=== PATIENT | female | born 1995 | race Caucasian/White ===

== ENCOUNTER 2019-05-31 18:46 | Emergency (ER) | payer MEDICAID, OTHER ==
[2019-05-31] MEDS ORDERED: FLU Vacc QS2019-20(6MOS+)/PF 60 MCG/0.5 ML SYRINGE IM ONE (19:30)
--- NOTE | 2019-05-31 19:47 | EDM.PDOC ---
ED HPI GENERAL MEDICAL PROBLEM - General Chief Complaint: Upper Extremity Injury/Pain Stated Complaint: INJURY TO RIGHT WRIST Time Seen by Provider: 05/31/19 19:40 - History of Present Illness INITIAL COMMENTS - FREE TEXT/NARRATIVE: 23-year-old female presents emergency room with right wrist pain. this is been going on for several years but it's getting worse when she first injured it for 5 years ago she was advised to have surgery but was not able to follow through with that. Now she's having increased pain and it is hard for her to do her job. She works at the [email or web address] and is unable to manipulate handcuffs. Right Wrist Pain Score (Numeric/FACES): 9 - Related Data Allergies Allergy/AdvReac Type Severity Reaction Status Date / Time No Known Allergies Allergy Verified 05/31/19 19:14 Home Meds: Home Meds Albuterol [Proventil HFA] 1 puff INH Q4H PRN 05/31/19 [History] Past Medical History Respiratory History: Reports: Asthma Social & Family History - Family History Family Medical History: Noncontributory - Tobacco Use Smoking Status *Q: Current Every Day Smoker Years of Tobacco use: 7 Packs/Tins Daily: 0.4 - Caffeine Use Caffeine Use: Reports: Coffee, Energy Drinks, Soda - Recreational Drug Use Recreational Drug Use: No Review of Systems - Review of Systems Review Of Systems: See Below Respiratory: Reports: No Symptoms Cardiovascular: Reports: No Symptoms GI/Abdominal: Reports: No Symptoms ED EXAM, GENERAL - Physical Exam Exam: See Below Exam Limited By: No Limitations General Appearance: Alert, No Apparent Distress Respiratory/Chest: No Respiratory Distress, Lungs Clear, Normal Breath Sounds Cardiovascular: Regular Rate, Rhythm, No Edema, No Murmur Extremities: Other (Vascular status of the right hand is normal flexion extension of the elbow is okay the patient has difficulty going to full supination because of discomfort in her wrist pronation is fairly well intact Beaver and extension of the wrist is somewhat limited.) ED TRAUMA EXTREMITY PROCEDURES - Splinting Right Upper Extremity Pre-Procedure NV Status: Normal Post-Procedure NV Status: Normal Splint Material: Fiberglass Splint Design: Volar Applied & Form Fitted By: Provider Provider Post-Splint Application NV Check: NV Status Normal Complications: No Course - Vital Signs Last Recorded V/S: Last Vital Signs Temp 36.7 C 05/31/19 19:11 Pulse 79 05/31/19 19:11 Resp 16 05/31/19 19:11 BP 104/69 05/31/19 19:11 Pulse Ox 97 05/31/19 19:11 - Orders/Labs/Meds Orders: Active Orders 24 hr Category Date Time Status Influenza Vaccine Charge [RC] .DISCHARGE Care 05/31/19 19:18 Active Wrist Comp Min 3V Rt [CR] Stat Exams 05/31/19 19:47 Taken Meds: Medications Discontinued Medications Generic Name Dose Route Start Last Admin Trade Name Harika PRN Reason Stop Dose Admin Influenza Virus Vaccine 1 each 05/31/19 19:18 Pharmacy To Dose - Influenza Vaccine IM 05/31/19 19:19 ONETIME ONE Influenza Virus Vaccine 60 mcg 05/31/19 19:30 05/31/19 20:07 Fluzone Quad [id number] Syringe IM 05/31/19 19:31 60 mcg .ONCE ONE Administration - Re-Assessments/Exams Free Text/Narrative Re-Assessment/Exam: 05/31/19 22:42 Examination her wrist was negative for acute fracture dislocation something about the carpal bones wasn't right had [facility] look at the images and they thought it showed no acute changes. Patient is placed in a cock-up splint and will follow up with orthopedics. Departure - Departure Time of Disposition: 22:44 Disposition: Home, Self-Care 01 Clinical Impression: Right wrist injury - Discharge Information Instructions: Cast or Splint Care, Adult, [id number] Referrals: PCP,None [Primary Care Provider] - Adin Nation MD [Physician] - Forms: ED Department Discharge, ED Return to Work/School Form Additional Instructions: Return to the emergency room with any questions problems or worsening symptoms. Follow-up with Dr. Nation today in one week. Wear the splint at all times. - My Orders Last 24 Hours: My Active Orders 05/31/19 19:18 Influenza Vaccine Charge [RC] .DISCHARGE 05/31/19 19:47 Wrist Comp Min 3V Rt [CR] Stat - Assessment/Plan Last 24 Hours: My Active Orders 05/31/19 19:18 Influenza Vaccine Charge [RC] .DISCHARGE 05/31/19 19:47 Wrist Comp Min 3V Rt [CR] Stat
--- NOTE | 2019-06-01 07:45 | CR ---
Right wrist: Four views of the right wrist were obtained as well as an additional navicular view. Joint spaces are preserved. No fracture, dislocation or other bony abnormality is seen. Impression: 1. No abnormality is appreciated on right wrist exam. Diagnostic code #1 I agree with preliminary report from [facility], finalized on 05/31/19, 11:01 PM Central Time
== END 2019-05-31 22:57 | disposition home or self-care (01) ==
LOC: JD.ED 18:46
DX: S69.91XA Unspecified injury of right wrist, hand and finger(s), initial encounter (principal); J45.909 Unspecified asthma, uncomplicated; F17.210 Nicotine dependence, cigarettes, uncomplicated; Z23 Encounter for immunization; Z79.899 Other long term (current) drug therapy; W00.0XXA Fall on same level due to ice and snow, initial encounter
CPT/HCPCS: 29125; 73110-26-RT; 73110-RT; 90471; 90686; 99283; 99283-25

== ENCOUNTER 2019-08-27 17:00 | Emergency (ER) | payer MEDICAID, OTHER ==
[2019-08-27] MEDS ORDERED: Ondansetron 4 MG/2 ML SDV IVPUSH ONE (17:16)
[2019-08-27] MEDS ORDERED: Sodium Chloride 0.9% 1,000 ML IV ONE (17:16)
[2019-08-27] MEDS ORDERED: Sodium Chloride 0.9% 10 ML Syringe FLUSH PRN (17:16)
[2019-08-27] MEDS ORDERED: Albuterol 0.083% 2.5 MG/3 ML Neb Soln NEB ONE (17:25)
--- NOTE | 2019-08-27 17:30 | EDM.PDOC ---
ED HPI GENERAL MEDICAL PROBLEM - General Chief Complaint: Gastrointestinal Problem Stated Complaint: FLU SX Time Seen by Provider: 08/27/19 17:15 Source of Information: Reports: Patient, RN Notes Reviewed History Limitations: Reports: No Limitations - History of Present Illness INITIAL COMMENTS - FREE TEXT/NARRATIVE: Patient is a 24-year-old female who presents to the ED for evaluation of multiple complaints. The patient states that she developed vomiting and diarrhea at around 4 AM this morning. She states she has had multiple episodes throughout the day, and has counted at least 10 of each. She further states that she feels hot and cold, and has all over body aches. She notes a history of asthma, and states that it feels hard to breathe as well. Although her O2 sats are 100% on room air. 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 Patient did not take any other sort of pain medications or otherwise at home. - Related Data Allergies Allergy/AdvReac Type Severity Reaction Status Date / Time No Known Allergies Allergy Verified 05/31/19 19:14 Home Meds: Home Meds Albuterol [Proventil HFA] 1 puff INH Q4H PRN 05/31/19 [History] Albuterol Sulfate [Albuterol Sulfate Hfa] 8.5 gm IH QID PRN #1 inhaler 08/27/19 [Rx] Ondansetron [Zofran ODT] 4 mg PO Q8H PRN #15 tab.dis 08/27/19 [Rx] Oseltamivir [Tamiflu] 75 mg PO BID #10 cap 08/27/19 [Rx] Past Medical History Respiratory History: Reports: Asthma Social & Family History - Family History Family Medical History: Noncontributory - Caffeine Use Caffeine Use: Reports: Coffee, Energy Drinks, Soda ED ROS GENERAL - Review of Systems Review Of Systems: See Below Constitutional: Reports: Fever, Chills, Malaise (generalzed) Respiratory: Reports: Shortness of Breath, Wheezing. Denies: Cough Cardiovascular: Denies: Chest Pain GI/Abdominal: Reports: Diarrhea, Decreased Appetite, Nausea, Vomiting. Denies: Abdominal Pain Neurological: Denies: Headache ED EXAM, GI/ABD - Physical Exam Exam: See Below Exam Limited By: No Limitations General Appearance: Alert, WD/WN, No Apparent Distress Eyes: Bilateral: Normal Appearance Throat/Mouth: Normal Inspection, Normal Lips, Normal Teeth, Normal Gums, Normal Oropharynx, Normal Voice, No Airway Compromise Head: Atraumatic, Normocephalic Neck: Normal Inspection Respiratory/Chest: No Respiratory Distress, No Accessory Muscle Use, Chest Non- Tender, Wheezing (minimal bilaterally) Cardiovascular: Normal Peripheral Pulses, Regular Rate, Rhythm, No Murmur GI/Abdominal Exam: Normal Bowel Sounds, Soft, Non-Tender, No Distention, No Mass Extremities: Normal Inspection, Normal Capillary Refill Neurological: Alert, Oriented, Normal Cognition, Normal Gait, No Motor/Sensory Deficits Psychiatric: Normal Affect, Normal Mood Skin Exam: Warm, Dry, Intact, Normal Color, No Rash Course - Vital Signs Last Recorded V/S: Last Vital Signs Temp 98.1 F 08/27/19 17:14 Pulse 94 08/27/19 17:14 Resp 16 08/27/19 17:14 BP 124/74 08/27/19 17:14 Pulse Ox 98 08/27/19 17:25 - Orders/Labs/Meds Orders: Active Orders 24 hr Category Date Time Status Peripheral IV Care [RC] . DIRECTED Care 08/27/19 17:16 Ordered RT Aerosol Therapy [RC] ASDIRECTED Care 08/27/19 17:25 Ordered Sodium Chloride 0.9% [Saline Flush] Med 08/27/19 17:16 Ordered 10 ml FLUSH ASDIRECTED PRN Peripheral IV Insertion Adult [OM.PC] Stat Oth 08/27/19 17:16 Ordered Medication Orders Sodium Chloride (Saline Flush) 10 ml FLUSH ASDIRECTED PRN PRN Reason: Keep Vein Open Last Admin: 08/27/19 17:40 Dose: 10 ml Meds: Medications Generic Name Dose Route Start Last Admin Trade Name Freq PRN Reason Stop Dose Admin Sodium Chloride 10 ml 08/27/19 17:16 08/27/19 17:40 Saline Flush FLUSH 10 ml ASDIRECTED PRN Administration Keep Vein Open Discontinued Medications Generic Name Dose Route Start Last Admin Trade Name Freq PRN Reason Stop Dose Admin Albuterol 2.5 mg 08/27/19 17:25 08/27/19 17:47 Proventil Neb Soln NEB 08/27/19 17:26 2.5 mg ONETIME ONE Administration Sodium Chloride 1,000 mls @ 999 mls/hr 08/27/19 17:16 08/27/19 17:40 Normal Saline IV 08/27/19 18:16 999 mls/hr ONETIME ONE Administration Ondansetron HCl 4 mg 08/27/19 17:16 08/27/19 17:40 Zofran IVPUSH 08/27/19 17:17 4 mg ONETIME ONE Administration - Re-Assessments/Exams Free Text/Narrative Re-Assessment/Exam: 08/27/19 17:29 She presents to the ED for evaluation of multiple episodes of diarrhea and vomiting today. I did order IV to be placed with some IV fluids, 4 mg Zofran, influenza swab, and an albuterol nebulizer for management. 08/27/19 18:43 Patient reports symptomatic relief after the fluids and Zofran. Patient's influenza swab is negative at this time, but due to her symptoms, I do believe she clinically has influenza and will treat her as such. She was started on some Tamiflu, she will be given a prescription for an albuterol inhaler and some Zofran with recommendations of taking Imodium [id number] for her diarrhea. Departure - Departure Time of Disposition: 18:44 Disposition: Home, Self-Care 01 Condition: Fair Clinical Impression: Influenza - Discharge Information *PRESCRIPTION DRUG MONITORING PROGRAM REVIEWED*: No *COPY OF PRESCRIPTION DRUG MONITORING REPORT IN PATIENT NAMRATA: No Prescriptions: Albuterol Sulfate [Albuterol Sulfate Hfa] 8.5 gm IH QID PRN #1 inhaler PRN Reason: sob Ondansetron [Zofran ODT] 4 mg PO Q8H PRN #15 tab.dis PRN Reason: Nausea Oseltamivir [Tamiflu] 75 mg PO BID #10 cap Instructions: Influenza, Adult, [id number], Viral Gastroenteritis, Adult, [id number] Referrals: PCP,Not In Area [Primary Care Provider] - Forms: ED Department Discharge, ED Return to Work/School Form Additional Instructions: You have been evaluated in the ED for nausea/vomiting/diarrhea. You were checked for influenza at today's visit, our swab was negative however this is not a perfect test and due to your symptoms I believe that you clinically have influenza. You will be given a prescription for Tamiflu, please take as directed. You have received IV fluid in the ED to help with the dehydration from the vomiting and diarrhea. Over the next 24-48 hours please try to limit diet to clear liquids and advance as tolerate to a bland diet to alleviate symptoms of nausea/vomiting/diarrhea. Please use the Zofran every 8 hours as needed for nausea. Recommend you obtain some [id number] Imodium and take as directed on the back of the bottle for further diarrhea relief. Please try to use as little of this medication as possible. Please return to the ED if your symptoms should change or worsen. Sepsis Event Note - Evaluation Sepsis Screening Result: No Definite Risk - Focused Exam Vital Signs: Vital Signs Temp Pulse Resp BP Pulse Ox Pulse Ox 08/27/19 17:25 98 08/27/19 17:14 98.1 F 94 16 124/74 100 Date Exam was Performed: 08/27/19 Time Exam was Performed: 18:46 - My Orders Last 24 Hours: My Active Orders 08/27/19 17:16 Peripheral IV Care [RC] . DIRECTED Sodium Chloride 0.9% [Saline Flush] 10 ml FLUSH ASDIRECTED PRN Peripheral IV Insertion Adult [OM.PC] Stat 08/27/19 17:25 RT Aerosol Therapy [RC] ASDIRECTED - Assessment/Plan Last 24 Hours: My Active Orders 08/27/19 17:16 Peripheral IV Care [RC] . DIRECTED Sodium Chloride 0.9% [Saline Flush] 10 ml FLUSH ASDIRECTED PRN Peripheral IV Insertion Adult [OM.PC] Stat 08/27/19 17:25 RT Aerosol Therapy [RC] ASDIRECTED
== END 2019-08-27 19:00 | disposition home or self-care (01) ==
LOC: JD.ED 17:00
DX: J11.1 Influenza due to unidentified influenza virus with other respiratory manifestations (principal); J45.909 Unspecified asthma, uncomplicated
CPT/HCPCS: 87804; 94640; 96361; 96374; 99284; J2405; J7030; 99283

== ENCOUNTER 2019-09-01 17:32 | Emergency (ER) | payer MEDICAID ==
[2019-09-01] MEDS ORDERED: Metoclopramide 10 MG/2 ML SDV IM ONE (18:13)
--- NOTE | 2019-09-01 18:27 | EDM.PDOC ---
<DoryCamelia - Last Filed: 09/01/19 18:13> ED HPI GENERAL MEDICAL PROBLEM - General Chief Complaint: General Stated Complaint: FLU Time Seen by Provider: 09/01/19 17:59 Source of Information: Reports: Patient History Limitations: Reports: No Limitations - History of Present Illness INITIAL COMMENTS - FREE TEXT/NARRATIVE: Patient is a pleasant 24-year-old female that presents to the ED for complaints of body aches, diarrhea, vomiting, sore throat,cough, and nausea that has been ongoing for the past 6-7 days. She was seen and evaluated in the ED on 2019 and was clinically diagnosed with influenza and treated with Tamiflu 75mg BID for five days and Zofran 4mg ODT as needed for nausea. She states she has one dose of Tamiflu left. She reports her body aches have not improved and she does not get relief from ibuprofen or Tylenol. She states she still has diarrhea and has several episodes per day that are watery and loose. She also is still vomiting and has had three episodes today. She denies blood in stool or emesis. She states she cannot go to work because she feels too sick. 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 Generalized Pain Score (Numeric/FACES): 7 - Related Data Allergies Allergy/AdvReac Type Severity Reaction Status Date / Time No Known Allergies Allergy Verified 05/31/19 19:14 Home Meds: Home Meds Albuterol [Proventil HFA] 1 puff INH Q4H PRN 05/31/19 [History] Albuterol Sulfate [Albuterol Sulfate Hfa] 8.5 gm IH QID PRN #1 inhaler 08/27/19 [Rx] Ondansetron [Zofran ODT] 4 mg PO Q8H PRN #15 tab.dis 08/27/19 [Rx] Oseltamivir [Tamiflu] 75 mg PO BID #10 cap 08/27/19 [Rx] Metoclopramide HCl [Reglan] 10 mg PO TID PRN #12 tablet 09/01/19 [Rx] Past Medical History - Past Health History Medical/Surgical History: Denies Medical/Surgical History Respiratory History: Reports: Asthma Social & Family History - Family History Family Medical History: Noncontributory - Tobacco Use Smoking Status *Q: Current Every Day Smoker Years of Tobacco use: 6 Packs/Tins Daily: 0.5 - Caffeine Use Caffeine Use: Reports: Coffee - Recreational Drug Use Recreational Drug Use: No ED ROS GENERAL - Review of Systems Review Of Systems: See Below Constitutional: Reports: Fever, Chills, Decreased Appetite. Denies: Fatigue HEENT: Reports: Sinus Problem, Throat Pain. Denies: Ear Pain, Eye Pain Respiratory: Reports: Cough. Denies: Shortness of Breath Cardiovascular: Reports: No Symptoms. Denies: Chest Pain, Edema, Syncope GI/Abdominal: Reports: Abdominal Pain (lower abdomen cramping), Diarrhea ( several watery loose episodes per day), Decreased Appetite, Nausea, Vomiting (a few episodes per day). Denies: Bloody Stool, Hematemesis : Reports: No Symptoms Musculoskeletal: Reports: Muscle Pain. Denies: Neck Pain, Back Pain Skin: Reports: No Symptoms. Denies: Rash, Erythema Neurological: Reports: Headache. Denies: Dizziness, Numbness, Syncope, Tingling , Weakness Psychiatric: Reports: No Symptoms ED EXAM, GENERAL - Physical Exam Exam: See Below Exam Limited By: No Limitations General Appearance: Alert, WD/WN, No Apparent Distress Eye Exam: Bilateral Eye: PERRL Ears: Normal External Exam, Normal Canal, Normal TMs Nose: Normal Inspection, Normal Mucosa, No Blood Throat/Mouth: Normal Inspection, Normal Lips, Normal Teeth, Normal Gums, Normal Oropharynx, Normal Voice Head: Atraumatic, Normocephalic Neck: Normal Inspection, Supple, Non-Tender, Full Range of Motion Respiratory/Chest: No Respiratory Distress, Lungs Clear, Normal Breath Sounds, No Accessory Muscle Use, Chest Non-Tender Cardiovascular: Normal Peripheral Pulses, Regular Rate, Rhythm, No Edema, No Gallop, No Murmur, No Rub GI/Abdominal: Normal Bowel Sounds, Soft, Non-Tender, No Organomegaly, No Distention Back Exam: Normal Inspection, Full Range of Motion, NT Extremities: Normal Inspection, Normal Range of Motion, Non-Tender, Normal Capillary Refill, No Pedal Edema Neurological: Alert, Oriented, Normal Cognition, Normal Gait, No Motor/Sensory Deficits Psychiatric: Normal Affect, Normal Mood Skin Exam: Warm, Dry, Intact, Normal Color, No Rash Lymphatic: No Adenopathy Course - Vital Signs Last Recorded V/S: Last Vital Signs Temp 98.1 F 09/01/19 17:50 Pulse 94 02/12/20 17:50 Resp 18 09/01/19 17:50 BP Pulse Ox 98 09/01/19 17:50 Orthostatic Blood Pressure [ 102/59 Standing] Orthostatic Blood Pressure [ 96/56 Supine] - Orders/Labs/Meds Orders: Active Orders 24 hr Category Date Time Status Orthostatic Vital Signs [RC] ASDIRECTED Care 09/01/19 18:03 Active Meds: Medications Discontinued Medications Generic Name Dose Route Start Last Admin Trade Name Freq PRN Reason Stop Dose Admin Metoclopramide HCl 10 mg 09/01/19 18:13 09/01/19 18:30 Reglan IM 09/01/19 18:14 10 mg ONETIME ONE Administration Departure - Departure Disposition: Home, Self-Care 01 Clinical Impression: Diarrhea Qualifiers: Diarrhea type: unspecified type Qualified Code(s): R19.7 - Diarrhea, unspecified Nausea and vomiting Qualifiers: Vomiting type: unspecified Vomiting Intractability: non-intractable Qualified Code(s): R11.2 - Nausea with vomiting, unspecified - Discharge Information Prescriptions: Metoclopramide HCl [Reglan] 10 mg PO TID PRN #12 tablet PRN Reason: Nausea Instructions: Food Choices to Help Relieve Diarrhea, Adult, Diarrhea, Adult, [id number] Referrals: PCP,None [Primary Care Provider] - Forms: ED Department Discharge, ED Return to Work/School Form Additional Instructions: You were evaluated in the ED today for your ongoing nausea and vomiting and diarrhea. You were given a different prescription for nausea, this did seem to help you get some nausea relief. You were also given some tablets of this to take home. Please take as prescribed. Please try to stick to a clear liquid diet or bland diet as tolerated. Please try to keep yourself well-hydrated as much as possible. Please return to the ER at any time if your symptoms change or worsen Sepsis Event Note - Evaluation Sepsis Screening Result: No Definite Risk - Focused Exam Vital Signs: Vital Signs Temp Pulse Resp Pulse Ox 09/01/19 17:50 98.1 F 94 18 98 Date Exam was Performed: 09/01/19 Time Exam was Performed: 18:13 - My Orders Last 24 Hours: My Active Orders 09/01/19 18:03 Orthostatic Vital Signs [RC] ASDIRECTED - Assessment/Plan Last 24 Hours: My Active Orders 09/01/19 18:03 Orthostatic Vital Signs [RC] ASDIRECTED <Ashleigh Da Silva - Last Filed: 09/01/19 19:39> Course - Re-Assessments/Exams Free Text/Narrative Re-Assessment/Exam: 09/01/19 19:24 I have read and reviewed the student's HPI and examined the patient and agree with Augusto Connors NP student. I did order 10 mg IM Reglan for the patient's nausea management, she does state that this did help a little bit. I will get her some tablets of Reglan to take at home, she states that the Zofran is not helping much. I did tell the patient that she will likely still feel quite crappy for the next few days. And she should take some Imodium for the diarrhea. Departure - Departure Time of Disposition: 19:24 Condition: Fair - Discharge Information *PRESCRIPTION DRUG MONITORING PROGRAM REVIEWED*: No *COPY OF PRESCRIPTION DRUG MONITORING REPORT IN PATIENT NAMRATA: No Sepsis Event Note - Focused Exam Date Exam was Performed: 09/01/19 Time Exam was Performed: 19:39
== END 2019-09-01 19:48 | disposition home or self-care (01) ==
LOC: JD.ED 17:32
DX: R19.7 Diarrhea, unspecified (principal); R11.2 Nausea with vomiting, unspecified; J45.909 Unspecified asthma, uncomplicated; F17.210 Nicotine dependence, cigarettes, uncomplicated
CPT/HCPCS: 96372; 99283; J2765

== ENCOUNTER 2019-09-21 23:11 | Emergency (ER) | payer MEDICAID ==
[2019-09-21] MEDS ORDERED: diphenhydrAMINE 50 MG Cap PO ONE (23:35)
--- NOTE | 2019-09-21 23:40 | EDM.PDOC ---
ED HPI GENERAL MEDICAL PROBLEM - General Chief Complaint: Eye Problems Stated Complaint: PINK EYE Time Seen by Provider: 09/21/19 23:24 Source of Information: Reports: Patient History Limitations: Reports: No Limitations - History of Present Illness INITIAL COMMENTS - FREE TEXT/NARRATIVE: Ms. Morelos is a pleasant 24-year-old woman with a past medical history significant for suspected asthma, who states that she woke this afternoon with bilateral eye burning, and a crusty discharge. Her eyes have been watering. She states that they are not exactly itchy, but that scratching her eyes makes the burning feel better. She states that she had similar symptoms in 2013. Other than a warm washcloth, the patient has not taken any [id number] or home remedies to treat her eye condition. The patient's PCP and Steno Pool Supervisor are at the [facility], [place]. She received an influenza vaccine this season. Bilateral Eye Pain Score (Numeric/FACES): 8 - Related Data Allergies Allergy/AdvReac Type Severity Reaction Status Date / Time No Known Allergies Allergy Verified 09/21/19 23:24 Home Meds: Home Meds Albuterol [Proventil HFA] 1 puff INH Q4H PRN 05/31/19 [History] Albuterol Sulfate [Albuterol Sulfate Hfa] 8.5 gm IH QID PRN #1 inhaler 08/27/19 [Rx] Past Medical History Respiratory History: Reports: Asthma (suspected, not tested) - Past Surgical History HEENT Surgical History: Reports: Adenoidectomy, Oral Surgery (wisdom teeth extraction), Tonsillectomy Social & Family History - Family History Family Medical History: Noncontributory - Tobacco Use Smoking Status *Q: Current Every Day Smoker Years of Tobacco use: 9 Packs/Tins Daily: 0.5 Packs/Tins Daily Comment: Down from >1 ppd - Caffeine Use Caffeine Use: Reports: Coffee, Energy Drinks, Soda, Tea - Alcohol Use Alcohol Use History: Yes Alcohol Use Frequency: Socially - Recreational Drug Use Recreational Drug Use: Yes Drug Use in Last 12 Months: Yes Recreational Drug Type: Reports: Marijuana/Hashish (last smoked Feb 2019) - Living Situation & Occupation Living situation: Reports: Single, Alone 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 ED EXAM GENERAL W FULL EYE - Physical Exam Exam: See Below Exam Limited By: No Limitations General Appearance: Alert, WD/WN, No Apparent Distress Eyelids: Bilateral: Edema, Erythema (particularly under both eyes), Lid Everted for Exam Conjunctiva & Sclera: Bilateral: Normal Appearance (Minimal, if any, injection) Cornea Exam: Bilateral: Normal Appearance Extraocular Movements: Bilateral: Intact Pupils: Normal Accommodation Pupillary Size: Bilateral: 5 mm Pupillary Reaction: Bilateral: Brisk Anterior Chamber: Bilateral: Normal Appearance Ears: Normal External Exam, Hearing Grossly Normal Nose: Normal Inspection Throat/Mouth: Normal Inspection, Normal Lips, Normal Voice, No Airway Compromise Head: Atraumatic, Normocephalic Neck: Normal Inspection, Supple, Non-Tender, Full Range of Motion. No: Lymphadenopathy (L), Lymphadenopathy (R) Course - Vital Signs Last Recorded V/S: Last Vital Signs Temp 36.6 C 09/21/19 23:21 Pulse 84 09/21/19 23:21 Resp 16 09/21/19 23:21 BP 113/66 09/21/19 23:21 Pulse Ox 98 09/21/19 23:21 - Orders/Labs/Meds Orders: Active Orders 24 hr Category Date Time Status diphenhydrAMINE [Benadryl] Med 09/21/19 23:35 Once 50 mg PO ONETIME ONE Medication Orders Diphenhydramine HCl (Benadryl) 50 mg PO ONETIME ONE Stop: 09/21/19 23:36 Meds: Medications Generic Name Dose Route Start Last Admin Trade Name Harika PRN Reason Stop Dose Admin Diphenhydramine HCl 50 mg 09/21/19 23:35 Benadryl PO 09/21/19 23:36 ONETIME ONE - Re-Assessments/Exams Free Text/Narrative Re-Assessment/Exam: 09/21/19 23:35 On examination, the patient does not actually have conjunctivitis - her sclera have minimal injection. The erythema primarily seen under her eyes appears to be due to a reaction - a dermatitis, really - to a new eyeliner that she wore yesterday and last night. Going forward, I am recommending that the patient throw that eyeliner away, and not use it again. She should not wear any eyeliner or facial makeup until her condition has resolved. In the meantime, the patient will be given 50 mg of oral Benadryl here, and I am recommending that she crop picker [id number] Zyrtec, and take 1 tablet twice a day until her symptoms have resolved. If she likes, she may also purchase over-the- counter eyedrops, such as Visine-A. The patient states that she was sent home from work today, as her employer feared agata. She will need a note to return to work tomorrow. Departure - Departure Time of Disposition: 23:37 Disposition: Home, Self-Care 01 Condition: Good Clinical Impression: Allergic dermatitis - Discharge Information *PRESCRIPTION DRUG MONITORING PROGRAM REVIEWED*: Not Applicable *COPY OF PRESCRIPTION DRUG MONITORING REPORT IN PATIENT NAMRATA: Not Applicable Referrals: PCP,None [Primary Care Provider] - Forms: ED Department Discharge, ED Return to Work/School Form Additional Instructions: You were seen in the emergency room after waking up this afternoon with burning eyes and a crusty discharge. Based on your history and physical examination, you are suffering from an allergic dermatitis, a reaction to the eyeliner that you wore yesterday and last night. We recommend that you throw the new eyeliner away, and not use it again. You were given Benadryl in the ER, but going forward, we recommend that you purchase [id number] Zyrtec, and take 1 tablet twice a day, starting tomorrow morning, 09/22/2019. You only need to continue the Zyrtec until your symptoms have resolved. If you like, you can also purchase eagk-[id number] eyedrops, such as Visine-A, and instill 1 drop in each eye every few hours, as needed for burning and itching. If any other problems, please do not hesitate to return to the ER. Sepsis Event Note - Evaluation Sepsis Screening Result: No Definite Risk - Focused Exam Vital Signs: Vital Signs Temp Pulse Resp BP Pulse Ox 09/21/19 23:21 36.6 C 84 16 113/66 98 Date Exam was Performed: 09/21/19 Time Exam was Performed: 23:35 - My Orders Last 24 Hours: My Active Orders 09/21/19 23:35 diphenhydrAMINE [Benadryl] 50 mg PO ONETIME ONE - Assessment/Plan Last 24 Hours: My Active Orders 09/21/19 23:35 diphenhydrAMINE [Benadryl] 50 mg PO ONETIME ONE
== END 2019-09-21 23:55 | disposition home or self-care (01) ==
LOC: JD.ED 23:11
DX: L23.9 Allergic contact dermatitis, unspecified cause (principal); F17.210 Nicotine dependence, cigarettes, uncomplicated
CPT/HCPCS: 99283; A9270; 99282

== ENCOUNTER 2019-09-30 21:20 | Emergency (ER) | payer MEDICAID, OTHER ==
[2019-09-30] MEDS ORDERED: valACYclovir 1,000 MG Tab PO ONE (22:01)
--- NOTE | 2019-09-30 22:08 | EDM.PDOC ---
ED HPI GENERAL MEDICAL PROBLEM - General Chief Complaint: Skin Complaint Stated Complaint: POSS SHINGLES Time Seen by Provider: 09/30/19 21:53 Source of Information: Reports: Patient History Limitations: Reports: No Limitations - History of Present Illness INITIAL COMMENTS - FREE TEXT/NARRATIVE: The patient presents with possible shingles. This started a couple days ago to the left flank with a bump. She now has more red bumps and more pain. She has no fever or chills and she is not immunocompromised. Onset: Gradual Duration: Day(s): Location: Reports: Back (left flank) Quality: Reports: Burning Severity: Severe Improves with: Reports: None Worsens with: Reports: None Associated Symptoms: Reports: No Other Symptoms Left Flank Pain Score (Numeric/FACES): 9 - Related Data Allergies Allergy/AdvReac Type Severity Reaction Status Date / Time No Known Allergies Allergy Verified 09/30/19 21:44 Home Meds: Home Meds Albuterol [Proventil HFA] 1 puff INH Q4H PRN 05/31/19 [History] Albuterol Sulfate [Albuterol Sulfate Hfa] 8.5 gm IH QID PRN #1 inhaler 08/27/19 [Rx] ALPRAZolam [Xanax] 0.25 mg PO DAILY 09/30/19 [History] valACYclovir [Valtrex] 1,000 mg PO TID #21 tab 09/30/19 [Rx] Past Medical History - Past Health History Medical/Surgical History: Denies Medical/Surgical History Cardiovascular History: Reports: None Respiratory History: Reports: Asthma Gastrointestinal History: Reports: GERD Genitourinary History: Reports: None 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: Musculoskeletal History: Reports: None Neurological History: Reports: None Psychiatric History: Reports: Anxiety Endocrine/Metabolic History: Reports: None Hematologic History: Reports: None Immunologic History: Reports: None Oncologic (Cancer) History: Reports: None Dermatologic History: Reports: None - Infectious Disease History Infectious Disease History: Reports: None - Past Surgical History HEENT Surgical History: Reports: Adenoidectomy, Oral Surgery, Tonsillectomy Social & Family History - Family History Family Medical History: Noncontributory - Tobacco Use Smoking Status *Q: Current Every Day Smoker Years of Tobacco use: 9 Packs/Tins Daily: 0.4 - Caffeine Use Caffeine Use: Reports: Coffee, Energy Drinks, Soda, Tea - Recreational Drug Use Recreational Drug Use: No - Living Situation & Occupation Living situation: Reports: Single, Alone 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) ED ROS GENERAL - Review of Systems Review Of Systems: See Below Constitutional: Reports: No Symptoms HEENT: Reports: No Symptoms Respiratory: Reports: No Symptoms Cardiovascular: Reports: No Symptoms Endocrine: Reports: No Symptoms GI/Abdominal: Reports: No Symptoms : Reports: No Symptoms Musculoskeletal: Reports: Back Pain (Left flank) ED EXAM, SKIN/RASH Exam: See Below Exam Limited By: No Limitations General Appearance: Alert, No Apparent Distress Ears: Normal External Exam Nose: Normal Inspection Head: Atraumatic, Normocephalic Neck: Normal Inspection Respiratory/Chest: No Respiratory Distress, Lungs Clear, Normal Breath Sounds Cardiovascular: Regular Rate, Rhythm, No Edema, No Murmur GI/Abdominal: Soft, Non-Tender, No Organomegaly, No Mass Back Exam: Other (Left flank shows a papular rash with erythema) Course - Vital Signs Last Recorded V/S: Last Vital Signs Temp 97.5 F 09/30/19 21:41 Pulse 78 09/30/19 21:41 Resp 16 09/30/19 21:41 BP 117/69 09/30/19 21:41 Pulse Ox 97 09/30/19 21:41 - Orders/Labs/Meds Orders: Active Orders 24 hr Category Date Time Status valACYclovir [Valtrex] Med 09/30/19 22:01 Once 1,000 mg PO ONETIME ONE - Re-Assessments/Exams Free Text/Narrative Re-Assessment/Exam: 09/30/19 22:05 It appears to be shingles. I gave her some valacyclovir and a prescription for more. I will give something for pain. Departure - Departure Time of Disposition: 22:10 Disposition: Home, Self-Care 01 Condition: Good Clinical Impression: Shingles Qualifiers: Herpes zoster complications: without complications Qualified Code(s): B02.9 - Zoster without complications - Discharge Information *PRESCRIPTION DRUG MONITORING PROGRAM REVIEWED*: Not Applicable *COPY OF PRESCRIPTION DRUG MONITORING REPORT IN PATIENT NAMRATA: Not Applicable Prescriptions: valACYclovir [Valtrex] 1,000 mg PO TID #21 tab Referrals: PCP,None [Primary Care Provider] - Brenda,Linda Constance, PA-C [Physician Shingle Catcher] - 1 Week Additional Instructions: Take the valacyclivir 3 times per day for 7 days. Take tylenol or motrin as needed for pain. If that does not help, try the hydrocodone. Please return if you are worse. Sepsis Event Note - Evaluation Sepsis Screening Result: No Definite Risk - Focused Exam Vital Signs: Vital Signs Temp Pulse Resp BP Pulse Ox 09/30/19 21:41 97.5 F 78 16 117/69 97 Date Exam was Performed: 09/30/19 Time Exam was Performed: 22:02 - My Orders Last 24 Hours: My Active Orders 09/30/19 22:01 valACYclovir [Valtrex] 1,000 mg PO ONETIME ONE - Assessment/Plan Last 24 Hours: My Active Orders 09/30/19 22:01 valACYclovir [Valtrex] 1,000 mg PO ONETIME ONE
== END 2019-09-30 22:39 | disposition home or self-care (01) ==
LOC: JD.ED 21:20
DX: B02.9 Zoster without complications (principal); F41.9 Anxiety disorder, unspecified; F17.210 Nicotine dependence, cigarettes, uncomplicated; Z79.899 Other long term (current) drug therapy; Z98.890 Other specified postprocedural states
CPT/HCPCS: 99283; A9270

== ENCOUNTER 2019-10-13 22:08 | Emergency (ER) | payer MEDICAID ==
--- NOTE | 2019-10-13 22:24 | EDM.PDOC ---
ED HPI GENERAL MEDICAL PROBLEM - General Chief Complaint: Gastrointestinal Problem Stated Complaint: CHEST PRESSURE/VOMITING Time Seen by Provider: 10/13/19 22:22 - History of Present Illness INITIAL COMMENTS - FREE TEXT/NARRATIVE: 24-year-old female presents the emergency room not feeling well. She has been vomiting probably over 10 times during the course the day today. She has some mild abdominal discomfort with this this seems to be associated with the vomiting. She is not aware of any fevers or chills she is not coughing. She is gets a burning sensation in her chest especially after vomiting. She has a significant past medical history of asthma this is not been acting up for her. Generalized Pain Score (Numeric/FACES): 7 - Related Data Allergies Allergy/AdvReac Type Severity Reaction Status Date / Time No Known Allergies Allergy Verified 09/30/19 21:44 Home Meds: Home Meds Albuterol [Proventil HFA] 1 puff INH Q4H PRN 05/31/19 [History] Albuterol Sulfate [Albuterol Sulfate Hfa] 8.5 gm IH QID PRN #1 inhaler 08/27/19 [Rx] ALPRAZolam [Xanax] 0.25 mg PO DAILY PRN 09/30/19 [History] Fluticasone/Salmeterol [Advair 250-50 Diskus] 1 puff INH BID 10/13/19 [History] Past Medical History - Past Health History Medical/Surgical History: Denies Medical/Surgical History Cardiovascular History: Reports: None Respiratory History: Reports: Asthma Gastrointestinal History: Reports: GERD Genitourinary History: Reports: None 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: Musculoskeletal History: Reports: None Neurological History: Reports: None Psychiatric History: Reports: Anxiety Endocrine/Metabolic History: Reports: None Hematologic History: Reports: None Immunologic History: Reports: None Oncologic (Cancer) History: Reports: None Dermatologic History: Reports: None - Infectious Disease History Infectious Disease History: Reports: None - Past Surgical History HEENT Surgical History: Reports: Adenoidectomy, Oral Surgery, Tonsillectomy Social & Family History - Family History Family Medical History: Noncontributory - Caffeine Use Caffeine Use: Reports: Coffee, Energy Drinks, Soda, Tea - Living Situation & Occupation Living situation: Reports: Single, Alone 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 Denies: Constipation, Diarrhea : Reports: No Symptoms Skin: Reports: No Symptoms Neurological: Reports: No Symptoms ED EXAM, GI/ABD - Physical Exam Exam: See Below Exam Limited By: No Limitations General Appearance: Alert, No Apparent Distress Eyes: Bilateral: Normal Appearance Ears: Normal External Exam, Normal Canal, Hearing Grossly Normal, Normal TMs Nose: Normal Inspection, Normal Mucosa, No Blood Throat/Mouth: Normal Inspection, Normal Lips, Normal Teeth, Normal Gums, Normal Oropharynx, Normal Voice, No Airway Compromise Head: Atraumatic, Normocephalic Neck: Normal Inspection, Supple, Non-Tender, Full Range of Motion. No: Lymphadenopathy (L), Lymphadenopathy (R) Respiratory/Chest: No Respiratory Distress, Lungs Clear, Normal Breath Sounds Cardiovascular: Regular Rate, Rhythm, No Edema, No Murmur GI/Abdominal Exam: Normal Bowel Sounds, Soft, Other (He has some vague tenderness in the right lower quadrant). No: Guarding, Rigid, Rebound Back Exam: Normal Inspection. No: CVA Tenderness (L), CVA Tenderness (R) Extremities: Normal Inspection, No Pedal Edema Course - Vital Signs Last Recorded V/S: Last Vital Signs Temp 36.3 C 10/13/19 22:16 Pulse 85 10/13/19 22:16 Resp 20 10/13/19 22:16 BP 111/59 L 10/13/19 22:16 Pulse Ox 100 10/13/19 22:16 Orthostatic Blood Pressure [ 108/62 Standing] Orthostatic Blood Pressure [ 113/64 Sitting] Orthostatic Blood Pressure [ 111/59 Supine] - Orders/Labs/Meds Labs: Laboratory Tests 10/13/19 10/13/19 10/14/19 Range/Units 22:55 22:55 00:10 WBC 9.56 (3.98-10.04) K/mm3 RBC 4.54 (3.98-5.22) M/mm3 Hgb 13.6 (11.2-15.7) gm/dl Hct 41.6 (34.1-44.9) % MCV 91.6 (79.4-94.8) fl MCH 30.0 (25.6-32.2) pg MCHC 32.7 (32.2-35.5) g/dl RDW Std Deviation 42.8 (36.4-46.3) fL Plt Count 266 (182-369) K/mm3 MPV 9.1 L (9.4-12.3) fl Neut % (Auto) 70.9 (34.0-71.1) % Lymph % (Auto) 20.7 (19.3-51.7) % [place] % (Auto) 5.9 (4.7-12.5) % Eos % (Auto) 2.1 (0.7-5.8) Baso % (Auto) 0.3 (0.1-1.2) % Neut # (Auto) 6.78 H (1.56-6.13) K/mm3 Lymph # (Auto) 1.98 (1.18-3.74) K/mm3 [place] # (Auto) 0.56 H (0.24-0.36) K/mm3 Eos # (Auto) 0.20 (0.04-0.36) K/mm3 Baso # (Auto) 0.03 (0.01-0.08) K/mm3 Sodium 143 (136-145) mEq/L Potassium 3.5 (3.5-5.1) mEq/L Chloride 107 (98-107) mEq/L Carbon Dioxide 26 (21-32) mEq/L Anion Gap 13.5 (5-15) BUN 8 (7-18) mg/dL Creatinine 0.8 (0.55-1.02) mg/dL Est Cr Clr Drug Dosing 105.45 mL/min Estimated GFR (MDRD) > 60 (>60) mL/min BUN/Creatinine Ratio 10.0 L (14-18) Glucose 88 (74-106) mg/dL Calcium 8.1 L (8.5-10.1) mg/dL Total Bilirubin 0.3 (0.2-1.0) mg/dL AST 12 L (15-37) U/L ALT 20 (14-59) U/L Alkaline Phosphatase 68 (46-116) U/L Total Protein 6.2 L (6.4-8.2) g/dl Albumin 3.6 (3.4-5.0) g/dl Globulin 2.6 gm/dL Albumin/Globulin Ratio 1.4 (1-2) Lipase 216 (73-393) U/L Urine Color Light yellow (Yellow) Urine Appearance Clear (Clear) Urine pH 7.0 (5.0-8.0) Ur Specific [place] 1.015 (1.005-1.030) Urine Protein Negative (Negative) Urine Glucose (UA) Negative (Negative) Urine Ketones Negative (Negative) Urine Occult Blood Negative (Negative) Urine Nitrite Negative (Negative) Urine Bilirubin Negative (Negative) Urine Urobilinogen 0.2 (0.2-1.0) Ur Leukocyte Esterase Negative (Negative) Urine HCG, Qual (NEGATIVE) 10/14/19 Range/Units 00:10 WBC (3.98-10.04) K/mm3 RBC (3.98-5.22) M/mm3 Hgb (11.2-15.7) gm/dl Hct (34.1-44.9) % MCV (79.4-94.8) fl MCH (25.6-32.2) pg MCHC (32.2-35.5) g/dl RDW Std Deviation (36.4-46.3) fL Plt Count (182-369) K/mm3 MPV (9.4-12.3) fl Neut % (Auto) (34.0-71.1) % Lymph % (Auto) (19.3-51.7) % [place] % (Auto) (4.7-12.5) % Eos % (Auto) (0.7-5.8) Baso % (Auto) (0.1-1.2) % Neut # (Auto) (1.56-6.13) K/mm3 Lymph # (Auto) (1.18-3.74) K/mm3 [place] # (Auto) (0.24-0.36) K/mm3 Eos # (Auto) (0.04-0.36) K/mm3 Baso # (Auto) (0.01-0.08) K/mm3 Sodium (136-145) mEq/L Potassium (3.5-5.1) mEq/L Chloride (98-107) mEq/L Carbon Dioxide (21-32) mEq/L Anion Gap (5-15) BUN (7-18) mg/dL Creatinine (0.55-1.02) mg/dL Est Cr Clr Drug Dosing mL/min Estimated GFR (MDRD) (>60) mL/min BUN/Creatinine Ratio (14-18) Glucose (74-106) mg/dL Calcium (8.5-10.1) mg/dL Total Bilirubin (0.2-1.0) mg/dL AST (15-37) U/L ALT (14-59) U/L Alkaline Phosphatase (46-116) U/L Total Protein (6.4-8.2) g/dl Albumin (3.4-5.0) g/dl Globulin gm/dL Albumin/Globulin Ratio (1-2) Lipase (73-393) U/L Urine Color (Yellow) Urine Appearance (Clear) Urine pH (5.0-8.0) Ur Specific [place] (1.005-1.030) Urine Protein (Negative) Urine Glucose (UA) (Negative) Urine Ketones (Negative) Urine Occult Blood (Negative) Urine Nitrite (Negative) Urine Bilirubin (Negative) Urine Urobilinogen (0.2-1.0) Ur Leukocyte Esterase (Negative) Urine HCG, Qual Negative (NEGATIVE) Meds: Medications Discontinued Medications Generic Name Dose Route Start Last Admin Trade Name Freq PRN Reason Stop Dose Admin Lactated Ringer's 1,000 mls @ 999 mls/hr 10/13/19 22:36 10/13/19 22:57 Ringers, Lactated IV 10/13/19 23:36 999 mls/hr .BOLUS ONE Administration Ondansetron HCl 4 mg 10/13/19 22:36 10/13/19 22:57 Zofran IVPUSH 10/13/19 22:37 4 mg ONETIME ONE Administration - Re-Assessments/Exams Free Text/Narrative Re-Assessment/Exam: 10/14/19 00:18 Patient has had a liter of fluid and some Zofran her nausea vomiting is better but she still has some mild right lower quadrant discomfort. On reexamination she has active bowel sounds no rebound or guarding and persistent right lower quadrant discomfort with palpation. We just obtained a urine on her so we are awaiting the urinalysis result at this point. Urinalysis is unremarkable awaiting hCG. She still has some mild right lower quadrant discomfort. Discussed the pros and cons of further imaging at this point patient would just like to go home as soon as she can we will discharge after reviewing her hCG with some Zofran. Departure - Departure Time of Disposition: 00:39 Disposition: Home, Self-Care 01 Clinical Impression: Acute gastroenteritis - Discharge Information Referrals: PCP,Not In Area [Primary Care Provider] - Forms: ED Department Discharge, ED Return to Work/School Form Additional Instructions: Return to the emergency room with any questions problems or worsening symptoms. Return in 12 to 24 hours if not better sooner if getting worse. Clear liquid diet for the next 24 hours then slowly advance as tolerated. You were given 10 Zofran from the machine out in the waiting room use 1 every 6 hours as needed for nausea and vomiting. Sepsis Event Note - Evaluation Sepsis Screening Result: No Definite Risk - Focused Exam Vital Signs: Vital Signs Temp Pulse Resp BP Pulse Ox 10/13/19 22:16 36.3 C 85 20 111/59 L 100 Date Exam was Performed: 10/14/19 Time Exam was Performed: 00:39
[2019-10-13] MEDS ORDERED: Ondansetron 4 MG/2 ML SDV IVPUSH ONE (22:36)
[2019-10-13] MEDS ORDERED: Lactated Ringers 1,000 ML IV ONE (22:36)
== END 2019-10-14 01:00 | disposition home or self-care (01) ==
LOC: JD.ED 22:08
DX: K52.9 Noninfective gastroenteritis and colitis, unspecified (principal); J45.909 Unspecified asthma, uncomplicated; F41.9 Anxiety disorder, unspecified; Z79.899 Other long term (current) drug therapy
CPT/HCPCS: 36415; 80053; 81003; 81025; 83690; 85025; 96361; 96374; 99284; J2405; J7120; 99283

== ENCOUNTER 2019-10-23 06:38 | Emergency (ER) | payer MEDICAID, OTHER ==
[2019-10-23] MEDS ORDERED: Ondansetron 4 MG/2 ML SDV IVPUSH ONE (07:10)
[2019-10-23] MEDS ORDERED: Sodium Chloride 0.9% 1,000 ML IV STA (07:10)
[2019-10-23] MEDS ORDERED: HYDROmorphone 1 MG/ML Syringe IVPUSH ONE (07:11)
--- NOTE | 2019-10-23 07:15 | EDM.PDOC ---
ED HPI GENERAL MEDICAL PROBLEM - General Chief Complaint: Abdominal Pain Stated Complaint: ABDOMINAL PAIN NOT BETTER Time Seen by Provider: 10/23/19 07:00 Source of Information: Reports: Patient History Limitations: Reports: No Limitations - History of Present Illness INITIAL COMMENTS - FREE TEXT/NARRATIVE: The patient presents with abdominal pain, nausea and vomiting. This all started last week with nausea and vomiting. She has more pain in the right lower abdomen now. She did have diarrhea initially but now she says she cannot go. She had a temp of 99.9 at home. She has no cough, congestion, runny nose, chest pain, shortness of breath, or dysuria. She still has her appendix and gallbladder. Onset: Gradual Duration: Week(s): Location: Reports: Abdomen Quality: Reports: Sharp Severity: Moderate Improves with: Reports: None Worsens with: Reports: None Associated Symptoms: Reports: Nausea/Vomiting. Denies: Chest Pain, Cough, Fever /Chills, Headaches, Shortness of Breath Right Abdomen Pain Score (Numeric/FACES): 8 - Related Data Allergies Allergy/AdvReac Type Severity Reaction Status Date / Time No Known Allergies Allergy Verified 10/23/19 07:03 Home Meds: Home Meds Albuterol [Proventil HFA] 1 puff INH Q4H PRN 05/31/19 [History] Albuterol Sulfate [Albuterol Sulfate Hfa] 8.5 gm IH QID PRN #1 inhaler 08/27/19 [Rx] ALPRAZolam [Xanax] 0.25 mg PO DAILY PRN 09/30/19 [History] Fluticasone/Salmeterol [Advair 250-50 Diskus] 1 puff INH BID 10/13/19 [History] Cephalexin [Keflex] 500 mg PO BID #10 capsule 10/23/19 [Rx] Hydrocodone/Acetaminophen [Hydrocodon-Acetaminophen 5-325] 1 - 2 each PO Q6HR PRN #10 tablet 10/23/19 [Rx] Ondansetron [Zofran ODT] 4 mg PO Q6H PRN #20 tab.dis 10/23/19 [Rx] Past Medical History - Past Health History Medical/Surgical History: Denies Medical/Surgical History Cardiovascular History: Reports: None Respiratory History: Reports: Asthma Gastrointestinal History: Reports: GERD Genitourinary History: Reports: None 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: Musculoskeletal History: Reports: None Neurological History: Reports: None Psychiatric History: Reports: Anxiety Endocrine/Metabolic History: Reports: None Hematologic History: Reports: None Immunologic History: Reports: None Oncologic (Cancer) History: Reports: None Dermatologic History: Reports: None - Infectious Disease History Infectious Disease History: Reports: None - Past Surgical History HEENT Surgical History: Reports: Adenoidectomy, Oral Surgery, Tonsillectomy Social & Family History - Family History Family Medical History: Noncontributory - Caffeine Use Caffeine Use: Reports: Coffee, Energy Drinks, Soda, Tea - Living Situation & Occupation Living situation: Reports: Single, Alone 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) ED ROS GENERAL - Review of Systems Review Of Systems: See Below Constitutional: Reports: No Symptoms HEENT: Reports: No Symptoms Respiratory: Reports: No Symptoms Cardiovascular: Reports: No Symptoms Endocrine: Reports: No Symptoms GI/Abdominal: Reports: Abdominal Pain, Diarrhea, Nausea, Vomiting : Reports: No Symptoms ED EXAM, GI/ABD - Physical Exam Exam: See Below Exam Limited By: No Limitations General Appearance: Alert, No Apparent Distress Ears: Normal External Exam Nose: Normal Inspection Head: Atraumatic, Normocephalic Neck: Normal Inspection Respiratory/Chest: No Respiratory Distress, Lungs Clear, Normal Breath Sounds Cardiovascular: Regular Rate, Rhythm, No Edema, No Murmur GI/Abdominal Exam: Soft, No Organomegaly, No Mass, Tender (Moderate tenderness to the right upper and more to the right lower abdomen) Course - Vital Signs Last Recorded V/S: Last Vital Signs Temp 97.4 F 10/23/19 06:58 Pulse 87 10/23/19 06:58 Resp 18 10/23/19 06:58 BP 118/75 10/23/19 06:58 Pulse Ox 100 10/23/19 06:58 - Orders/Labs/Meds Orders: Active Orders 24 hr Category Date Time Status Peripheral IV Care [RC] . DIRECTED Care 10/23/19 07:10 Active Sodium Chloride 0.9% [Saline Flush] Med 10/23/19 07:10 Active 10 ml FLUSH ASDIRECTED PRN ED Antiemetic Medication Reflex [OM.PC] Stat Oth 10/23/19 07:10 Ordered Peripheral IV Insertion Adult [OM.PC] Stat Oth 10/23/19 07:10 Ordered Medication Orders Sodium Chloride (Saline Flush) 10 ml FLUSH ASDIRECTED PRN PRN Reason: Keep Vein Open Last Admin: 10/23/19 08:56 Dose: 10 ml Admin: 10/23/19 07:40 Dose: 10 ml Labs: Laboratory Tests 10/23/19 10/23/19 10/23/19 Range/Units 07:30 07:30 07:30 WBC 7.65 (3.98-10.04) K/mm3 RBC 4.65 (3.98-5.22) M/mm3 Hgb 14.1 (11.2-15.7) gm/dl Hct 42.8 (34.1-44.9) % MCV 92.0 (79.4-94.8) fl MCH 30.3 (25.6-32.2) pg MCHC 32.9 (32.2-35.5) g/dl RDW Std Deviation 42.8 (36.4-46.3) fL Plt Count 310 (182-369) K/mm3 MPV 9.0 L (9.4-12.3) fl Neut % (Auto) 52.2 (34.0-71.1) % Lymph % (Auto) 36.3 (19.3-51.7) % [place] % (Auto) 6.5 (4.7-12.5) % Eos % (Auto) 4.4 (0.7-5.8) Baso % (Auto) 0.5 (0.1-1.2) % Neut # (Auto) 3.98 (1.56-6.13) K/mm3 Lymph # (Auto) 2.78 (1.18-3.74) K/mm3 [place] # (Auto) 0.50 H (0.24-0.36) K/mm3 Eos # (Auto) 0.34 (0.04-0.36) K/mm3 Baso # (Auto) 0.04 (0.01-0.08) K/mm3 Sodium 143 (136-145) mEq/L Potassium 3.5 (3.5-5.1) mEq/L Chloride 106 (98-107) mEq/L Carbon Dioxide 25 (21-32) mEq/L Anion Gap 15.5 H (5-15) BUN 10 (7-18) mg/dL Creatinine 0.7 (0.55-1.02) mg/dL Est Cr Clr Drug Dosing 120.51 mL/min Estimated GFR (MDRD) > 60 (>60) mL/min BUN/Creatinine Ratio 14.3 (14-18) Glucose 89 (74-106) mg/dL Calcium 8.5 (8.5-10.1) mg/dL Total Bilirubin 0.2 (0.2-1.0) mg/dL AST 28 (15-37) U/L ALT 60 H (14-59) U/L Alkaline Phosphatase 86 (46-116) U/L Total Protein 7.0 (6.4-8.2) g/dl Albumin 4.0 (3.4-5.0) g/dl Globulin 3.0 gm/dL Albumin/Globulin Ratio 1.3 (1-2) Lipase 168 (73-393) U/L HCG, Qual Negative (NEGATIVE) Urine Color (Yellow) Urine Appearance (Clear) Urine pH (5.0-8.0) Ur Specific [place] (1.005-1.030) Urine Protein (Negative) Urine Glucose (UA) (Negative) Urine Ketones (Negative) Urine Occult Blood (Negative) Urine Nitrite (Negative) Urine Bilirubin (Negative) Urine Urobilinogen (0.2-1.0) Ur Leukocyte Esterase (Negative) Urine RBC (0-5) /hpf Urine WBC (0-5) /hpf Ur Squamous Epith Cells (0-5) /hpf Urine Bacteria (FEW) /hpf Urine Mucus (FEW) /hpf 10/23/19 Range/Units 08:20 WBC (3.98-10.04) K/mm3 RBC (3.98-5.22) M/mm3 Hgb (11.2-15.7) gm/dl Hct (34.1-44.9) % MCV (79.4-94.8) fl MCH (25.6-32.2) pg MCHC (32.2-35.5) g/dl RDW Std Deviation (36.4-46.3) fL Plt Count (182-369) K/mm3 MPV (9.4-12.3) fl Neut % (Auto) (34.0-71.1) % Lymph % (Auto) (19.3-51.7) % [place] % (Auto) (4.7-12.5) % Eos % (Auto) (0.7-5.8) Baso % (Auto) (0.1-1.2) % Neut # (Auto) (1.56-6.13) K/mm3 Lymph # (Auto) (1.18-3.74) K/mm3 [place] # (Auto) (0.24-0.36) K/mm3 Eos # (Auto) (0.04-0.36) K/mm3 Baso # (Auto) (0.01-0.08) K/mm3 Sodium (136-145) mEq/L Potassium (3.5-5.1) mEq/L Chloride (98-107) mEq/L Carbon Dioxide (21-32) mEq/L Anion Gap (5-15) BUN (7-18) mg/dL Creatinine (0.55-1.02) mg/dL Est Cr Clr Drug Dosing mL/min Estimated GFR (MDRD) (>60) mL/min BUN/Creatinine Ratio (14-18) Glucose (74-106) mg/dL Calcium (8.5-10.1) mg/dL Total Bilirubin (0.2-1.0) mg/dL AST (15-37) U/L ALT (14-59) U/L Alkaline Phosphatase (46-116) U/L Total Protein (6.4-8.2) g/dl Albumin (3.4-5.0) g/dl Globulin gm/dL Albumin/Globulin Ratio (1-2) Lipase (73-393) U/L HCG, Qual (NEGATIVE) Urine Color Yellow (Yellow) Urine Appearance Clear (Clear) Urine pH 6.0 (5.0-8.0) Ur Specific [place] 1.025 (1.005-1.030) Urine Protein Negative (Negative) Urine Glucose (UA) Negative (Negative) Urine Ketones Negative (Negative) Urine Occult Blood Trace-intact H (Negative) Urine Nitrite Positive H (Negative) Urine Bilirubin Negative (Negative) Urine Urobilinogen 0.2 (0.2-1.0) Ur Leukocyte Esterase Negative (Negative) Urine RBC 5-10 H (0-5) /hpf Urine WBC 0-5 (0-5) /hpf Ur Squamous Epith Cells 0-5 (0-5) /hpf Urine Bacteria Many H (FEW) /hpf Urine Mucus Rare (FEW) /hpf Meds: Medications Generic Name Dose Route Start Last Admin Trade Name Freq PRN Reason Stop Dose Admin Sodium Chloride 10 ml 10/23/19 07:10 10/23/19 08:56 Saline Flush FLUSH 10 ml ASDIRECTED PRN Administration Keep Vein Open Discontinued Medications Generic Name Dose Route Start Last Admin Trade Name Freq PRN Reason Stop Dose Admin Diatrizoate Meglum/Diatrizoate Sod 90 ml 10/23/19 08:44 10/23/19 08:55 Gastrografin 37% PO 10/23/19 08:45 90 ml ONETIME ONE Administration Hydromorphone HCl 1 mg 10/23/19 07:11 10/23/19 07:35 Dilaudid IVPUSH 10/23/19 07:12 1 mg ONETIME ONE Administration Sodium Chloride 1,000 mls @ 1,000 mls/hr 10/23/19 07:10 10/23/19 07:30 Normal Saline IV 10/23/19 08:09 1,000 mls/hr .BOLUS STA Administration Iopamidol 100 ml 10/23/19 08:43 10/23/19 08:55 Isovue-300 (61%) IVPUSH 10/23/19 08:44 100 ml ONETIME ONE Administration Ondansetron HCl 4 mg 10/23/19 07:10 10/23/19 07:33 Zofran IVPUSH 10/23/19 07:11 4 mg ONETIME ONE Administration - Re-Assessments/Exams Free Text/Narrative Re-Assessment/Exam: 10/23/19 07:15 I ordered an IV NS 1L bolus, zofran 4mg IV, dilaudid 1mg IV, labs, UA and a CT of her abdomen and pelvis. 10/23/19 09:28 Her CBC and CMP look good. Her HCG is negative. Her UA shows a UTI. Her CT shows appendix felt to be visualized and is within normal limits in size. Nothing acute is appreciated on CT study of the abdomen and pelvis. I will treat her for the UTI and give her some zofran and something for pain. Departure - Departure Time of Disposition: 09:30 Disposition: Home, Self-Care 01 Condition: Good Clinical Impression: Gastroenteritis UTI (urinary tract infection) Qualifiers: Urinary tract infection type: acute cystitis Hematuria presence: without hematuria Qualified Code(s): N30.00 - Acute cystitis without hematuria - Discharge Information *PRESCRIPTION DRUG MONITORING PROGRAM REVIEWED*: No *COPY OF PRESCRIPTION DRUG MONITORING REPORT IN PATIENT NAMRATA: No Prescriptions: Hydrocodone/Acetaminophen [Hydrocodon-Acetaminophen 5-325] 1 - 2 each PO Q6HR PRN #10 tablet PRN Reason: Pain Cephalexin [Keflex] 500 mg PO BID #10 capsule Ondansetron [Zofran ODT] 4 mg PO Q6H PRN #20 tab.dis PRN Reason: Nausea\vomiting Referrals: PCP,None [Primary Care Provider] - Linda Gutierrez PA-C [Physician Production Team Member] - 1 Week Forms: ED Department Discharge, ED Return to Work/School Form Additional Instructions: Drink plenty of fluids. Take the zofran every 6 hours as needed for nausea and vomiting. Take the keflex 2 times per day for 5 days. Take tylenol or motrin for pain. If that does not work try the hydrocodone. Please return if you are worse. Sepsis Event Note - Evaluation Sepsis Screening Result: No Definite Risk - Focused Exam Vital Signs: Vital Signs Temp Pulse Resp BP Pulse Ox 10/23/19 06:58 97.4 F 87 18 118/75 100 Date Exam was Performed: 10/23/19 Time Exam was Performed: 09:28 - My Orders Last 24 Hours: My Active Orders 10/23/19 07:10 Peripheral IV Care [RC] . DIRECTED Sodium Chloride 0.9% [Saline Flush] 10 ml FLUSH ASDIRECTED PRN ED Antiemetic Medication Reflex [OM.PC] Stat Peripheral IV Insertion Adult [OM.PC] Stat - Assessment/Plan Last 24 Hours: My Active Orders 10/23/19 07:10 Peripheral IV Care [RC] . DIRECTED Sodium Chloride 0.9% [Saline Flush] 10 ml FLUSH ASDIRECTED PRN ED Antiemetic Medication Reflex [OM.PC] Stat Peripheral IV Insertion Adult [OM.PC] Stat
[2019-10-23] MEDS: Sodium Chloride 0.9% 10 ML Syringe FLUSH PRN ×2 (07:40→08:56)
[2019-10-23] MEDS ORDERED: Iopamidol 612 MG/ML 100 ML Bottle IVPUSH ONE (08:43)
[2019-10-23] MEDS ORDERED: Diatrizoate Meglumine/Diatrizoate Sodium 37% 120 ML Bottle PO ONE (08:44)
--- NOTE | 2019-10-23 09:17 | CT ---
CT abdomen and pelvis Technique: Multiple axial sections were obtained from above the dome of the diaphragm inferiorly through the pubic symphysis. Intravenous and oral contrast was utilized. Delayed images were also obtained through the bladder. Comparison: No prior abdominal imaging is available. Findings: Minimal atelectasis is noted within both lung bases. Liver contains no focal parenchymal abnormality. Spleen appears within normal limits. Kidneys show symmetric contrast enhancement with no hydronephrosis or mass being seen. Delayed images shows contrast within the distal ureters and within the bladder. Pancreas is within normal limits. Gallbladder contains no calcified gallstones. Aorta shows no aneurysm. No retroperitoneal adenopathy or mesenteric abnormalities are seen. No pelvic mass or adenopathy is identified. Appendix is felt to be visualized and is normal in size. No free fluid or inflammatory change is seen within the abdomen or within the pelvis. Bone window settings were reviewed which appear within normal limits for the patient's age. Impression: 1. Appendix felt to be visualized and is within normal limits in size. 2. Nothing acute is appreciated on CT study of the abdomen and pelvis. Diagnostic code #1 This report was dictated in MDT
== END 2019-10-23 09:55 | disposition home or self-care (01) ==
LOC: JD.ED 06:38
DX: K52.9 Noninfective gastroenteritis and colitis, unspecified (principal); N30.00 Acute cystitis without hematuria; K21.9 Gastro-esophageal reflux disease without esophagitis; F41.9 Anxiety disorder, unspecified; Z79.899 Other long term (current) drug therapy
CPT/HCPCS: 36415; 74177; 80053; 81001; 83690; 84703; 85025; 96361; 96374; 96375; 99284; J1170; J2405; J7030; Q9963; Q9967

== ENCOUNTER 2019-12-28 13:44 | Emergency (ER) | payer MEDICAID ==
[2019-12-28] MEDS ORDERED: Sodium Chloride 0.9% 10 ML Syringe FLUSH PRN (14:01)
[2019-12-28] MEDS ORDERED: Metoclopramide 10 MG/2 ML SDV IVPUSH ONE (14:01)
[2019-12-28] MEDS ORDERED: Ketorolac 30 MG/ML SDV IVPUSH ONE (14:02)
[2019-12-28] MEDS ORDERED: diphenhydrAMINE 50 MG/ML SDV IVPUSH ONE (14:02)
[2019-12-28] MEDS ORDERED: Albuterol 6.7 GM Inhaler INH ONE (14:03)
[2019-12-28] MEDS ORDERED: Sodium Chloride 0.9% 1,000 ML IV SCH (14:15)
--- NOTE | 2019-12-28 16:33 | EDM.PDOC ---
ED HPI GENERAL MEDICAL PROBLEM - General Chief Complaint: Gastrointestinal Problem Stated Complaint: VOMITING Time Seen by Provider: 12/28/19 13:54 Source of Information: Reports: Patient History Limitations: Reports: No Limitations - History of Present Illness INITIAL COMMENTS - FREE TEXT/NARRATIVE: The patient presents with a headache, nausea, vomiting, cough, shortness of breath, chills and body aches. This all started on Friday with a headache and a few days later she had nausea and vomiting. She has a history of migraines. She has generalized weakness. She has some chest pain and shortness of breath. She was in [place] for about 5 days and came back on Friday. She does smoke. Onset: Gradual Duration: Day(s): (5) Location: Reports: Head, Generalized Quality: Reports: Ache Severity: Moderate Improves with: Reports: None Worsens with: Reports: None Associated Symptoms: Reports: Chest Pain, Cough, Fever/Chills, Headaches, Nausea /Vomiting, Shortness of Breath head Pain Score (Numeric/FACES): 10 - Related Data Allergies Allergy/AdvReac Type Severity Reaction Status Date / Time duct tape Allergy Hives Uncoded 12/28/19 13:54 Home Meds: Home Meds Ondansetron [Zofran ODT] 4 mg PO Q6H PRN #20 tab.dis 12/28/19 [Rx] Past Medical History - Past Health History Medical/Surgical History: Denies Medical/Surgical History HEENT History: Reports: Impaired Vision Cardiovascular History: Reports: None Respiratory History: Reports: Asthma Gastrointestinal History: Reports: GERD Genitourinary History: Reports: None [employer]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: Musculoskeletal History: Reports: None Neurological History: Reports: None Psychiatric History: Reports: Anxiety Endocrine/Metabolic History: Reports: None Hematologic History: Reports: None Immunologic History: Reports: None Oncologic (Cancer) History: Reports: None Dermatologic History: Reports: None - Infectious Disease History Infectious Disease History: Reports: None - Past Surgical History HEENT Surgical History: Reports: Adenoidectomy, Oral Surgery, Tonsillectomy Social & Family History - Family History Family Medical History: Noncontributory Respiratory: Reports: Asthma Endocrine/Metabolic: Reports: Hypothyroidism - Tobacco Use Smoking Status *Q: Current Every Day Smoker Years of Tobacco use: 10 Packs/Tins Daily: 0.5 - Caffeine Use Caffeine Use: Reports: Coffee, Energy Drinks, Soda, Tea - Recreational Drug Use Recreational Drug Use: No - Living Situation & Occupation Living situation: Reports: Single, Alone 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 Denies: Fever HEENT: Reports: No Symptoms Respiratory: Reports: Shortness of Breath Cardiovascular: Reports: Chest Pain Endocrine: Reports: No Symptoms GI/Abdominal: Reports: Abdominal Pain, Nausea, Vomiting Musculoskeletal: Reports: Muscle Pain ED EXAM, GI/ABD - Physical Exam Exam: See Below Exam Limited By: No Limitations General Appearance: Alert, No Apparent Distress Ears: Normal External Exam Nose: Normal Inspection Head: Atraumatic, Normocephalic Neck: Normal Inspection Respiratory/Chest: No Respiratory Distress, Wheezing Cardiovascular: Regular Rate, Rhythm, No Edema, No Murmur GI/Abdominal Exam: Soft, Non-Tender, No Organomegaly, No Mass Course - Vital Signs Last Recorded V/S: Last Vital Signs Temp 97.3 F 12/28/19 13:51 Pulse 112 H 12/28/19 13:51 Resp 19 12/28/19 13:51 BP 119/71 12/28/19 13:51 Pulse Ox 97 12/28/19 14:52 - Orders/Labs/Meds Orders: Active Orders 24 hr Category Date Time Status Cardiac Monitoring [RC] . DIRECTED Care 12/28/19 14:01 Active Oxygen Therapy [RC] PRN Care 12/28/19 14:01 Active Peripheral IV Care [RC] . DIRECTED Care 12/28/19 14:01 Active RT Post Treatment Assessment [RC] Click to Edit Care 12/28/19 14:03 Active RT Pre-Treatment Assessment [RC] Click to Edit Care 12/28/19 14:03 Active Chest 1V Frontal [CR] Stat Exams 12/28/19 14:02 Taken HYDROmorphone [Dilaudid] Med 12/28/19 17:18 Once 1 mg IVPUSH ONETIME ONE Sodium Chloride 0.9% [Normal Saline] 1,000 ml Med 12/28/19 14:15 Active IV .BOLUS Sodium Chloride 0.9% [Saline Flush] Med 12/28/19 14:01 Active 10 ml FLUSH ASDIRECTED PRN ED Antiemetic Medication Reflex [OM.PC] Stat Oth 12/28/19 14:01 Ordered Peripheral IV Insertion Adult [OM.PC] Stat Oth 12/28/19 14:01 Ordered Medication Orders Sodium Chloride (Normal Saline) 1,000 mls @ 1,000 mls/hr IV .BOLUS DIANE Last Admin: 12/28/19 14:31 Dose: 1,000 mls/hr Sodium Chloride (Saline Flush) 10 ml FLUSH ASDIRECTED PRN PRN Reason: Keep Vein Open Last Admin: 12/28/19 14:33 Dose: 10 ml Labs: Laboratory Tests 12/28/19 12/28/19 12/28/19 Range/Units 14:28 14:28 14:35 WBC 6.56 (3.98-10.04) K/mm3 RBC 4.86 (3.98-5.22) M/mm3 Hgb 14.4 (11.2-15.7) gm/dl Hct 43.9 (34.1-44.9) % MCV 90.3 (79.4-94.8) fl MCH 29.6 (25.6-32.2) pg MCHC 32.8 (32.2-35.5) g/dl RDW Std Deviation 45.1 (36.4-46.3) fL Plt Count 254 (182-369) K/mm3 MPV 9.6 (9.4-12.3) fl Neut % (Auto) 61.0 (34.0-71.1) % Lymph % (Auto) 27.0 (19.3-51.7) % [place] % (Auto) 5.2 (4.7-12.5) % Eos % (Auto) 6.3 H (0.7-5.8) Baso % (Auto) 0.5 (0.1-1.2) % Neut # (Auto) 4.01 (1.56-6.13) K/mm3 Lymph # (Auto) 1.77 (1.18-3.74) K/mm3 [place] # (Auto) 0.34 (0.24-0.36) K/mm3 Eos # (Auto) 0.41 H (0.04-0.36) K/mm3 Baso # (Auto) 0.03 (0.01-0.08) K/mm3 Sodium 143 (136-145) mEq/L Potassium 3.8 (3.5-5.1) mEq/L Chloride 108 H (98-107) mEq/L Carbon Dioxide 25 (21-32) mEq/L Anion Gap 13.8 (5-15) BUN 7 (7-18) mg/dL Creatinine 0.7 (0.55-1.02) mg/dL Est Cr Clr Drug Dosing 120.51 mL/min Estimated GFR (MDRD) > 60 (>60) mL/min BUN/Creatinine Ratio 10.0 L (14-18) Glucose 104 (74-106) mg/dL Calcium 8.5 (8.5-10.1) mg/dL Total Bilirubin 0.4 (0.2-1.0) mg/dL AST 13 L (15-37) U/L ALT 22 (14-59) U/L Alkaline Phosphatase 72 (46-116) U/L Total Protein 6.4 (6.4-8.2) g/dl Albumin 3.6 (3.4-5.0) g/dl Globulin 2.8 gm/dL Albumin/Globulin Ratio 1.3 (1-2) SARS Virus RNA (PCR) Negative (NEGATIVE) Meds: Medications Generic Name Dose Route Start Last Admin Trade Name Freq PRN Reason Stop Dose Admin Sodium Chloride 1,000 mls @ 1,000 mls/hr 12/28/19 14:15 12/28/19 14:31 Normal Saline IV 1,000 mls/hr .BOLUS DIANE Administration Sodium Chloride 10 ml 12/28/19 14:01 12/28/19 14:33 Saline Flush FLUSH 10 ml ASDIRECTED PRN Administration Keep Vein Open Discontinued Medications Generic Name Dose Route Start Last Admin Trade Name Freq PRN Reason Stop Dose Admin Albuterol 0 gm 12/28/19 14:03 12/28/19 14:51 Proventil Hfa INH 12/28/19 14:04 2 inhaler ONETIME ONE Administration Diphenhydramine HCl 50 mg 12/28/19 14:02 12/28/19 14:32 Benadryl IVPUSH 12/28/19 14:03 50 mg ONETIME ONE Administration Ketorolac Tromethamine 30 mg 12/28/19 14:02 12/28/19 14:32 Toradol IVPUSH 12/28/19 14:03 30 mg ONETIME ONE Administration Metoclopramide HCl 10 mg 12/28/19 14:01 12/28/19 14:32 Reglan IVPUSH 12/28/19 14:02 10 mg ONETIME ONE Administration - Re-Assessments/Exams Free Text/Narrative Re-Assessment/Exam: 12/28/19 16:32 I ordered an IV NS 1L bolus, reglan 10mg IV, toradol 30mg IV, benadryl 50mg IV, albuterol 2 puffs, labs and a CXR. I will also check her for COVID 19. Her CBC and CMP look good. 12/28/19 17:18 Her COVID 19 is negative. Her CXR looks good. She still has pain. I will give her a dose of dilaudid and discharge her home with some zofran. Departure - Departure Time of Disposition: 17:20 Disposition: Home, Self-Care 01 Condition: Good Clinical Impression: Gastroenteritis Headache Qualifiers: Headache type: unspecified Headache chronicity pattern: acute headache Intractability: not intractable Qualified Code(s): R51 - Headache - Discharge Information *PRESCRIPTION DRUG MONITORING PROGRAM REVIEWED*: Not Applicable *COPY OF PRESCRIPTION DRUG MONITORING REPORT IN PATIENT NAMRATA: Not Applicable Prescriptions: Ondansetron [Zofran ODT] 4 mg PO Q6H PRN #20 tab.dis PRN Reason: Nausea\vomiting Referrals: PCP,Michi [Primary Care Provider] - Isha English [employer] 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 Take the zofran every 6 hours as needed for nausea and vomiting. Take tylenol or motrin as needed for pain. Please return if you are worse. Sepsis Event Note (ED) - Evaluation Sepsis Screening Result: No Definite Risk - Focused Exam Vital Signs: Vital Signs Temp Pulse Resp BP Pulse Ox Pulse Ox 12/28/19 14:52 97 12/28/19 13:51 97.3 F 112 H 19 119/71 99 - My Orders Last 24 Hours: My Active Orders 12/28/19 14:01 Cardiac Monitoring [RC] . DIRECTED Oxygen Therapy [RC] PRN Peripheral IV Care [RC] . DIRECTED Sodium Chloride 0.9% [Saline Flush] 10 ml FLUSH ASDIRECTED PRN ED Antiemetic Medication Reflex [OM.PC] Stat Peripheral IV Insertion Adult [OM.PC] Stat 12/28/19 14:02 Chest 1V Frontal [CR] Stat 12/28/19 14:03 RT Post Treatment Assessment [RC] Click to Edit RT Pre-Treatment Assessment [RC] Click to Edit 12/28/19 14:15 Sodium Chloride 0.9% [Normal Saline] 1,000 ml IV .BOLUS 12/28/19 17:18 HYDROmorphone [Dilaudid] 1 mg IVPUSH ONETIME ONE - Assessment/Plan Last 24 Hours: My Active Orders 12/28/19 14:01 Cardiac Monitoring [RC] . DIRECTED Oxygen Therapy [RC] PRN Peripheral IV Care [RC] . DIRECTED Sodium Chloride 0.9% [Saline Flush] 10 ml FLUSH ASDIRECTED PRN ED Antiemetic Medication Reflex [OM.PC] Stat Peripheral IV Insertion Adult [OM.PC] Stat 12/28/19 14:02 Chest 1V Frontal [CR] Stat 12/28/19 14:03 RT Post Treatment Assessment [RC] Click to Edit RT Pre-Treatment Assessment [RC] Click to Edit 12/28/19 14:15 Sodium Chloride 0.9% [Normal Saline] 1,000 ml IV .BOLUS 12/28/19 17:18 HYDROmorphone [Dilaudid] 1 mg IVPUSH ONETIME ONE
[2019-12-28] MEDS ORDERED: HYDROmorphone 1 MG/ML Syringe IVPUSH ONE (17:18)
--- NOTE | 2019-12-29 08:24 | CR ---
Chest: Portable view of the chest was obtained. Comparison: No prior chest imaging is available. Heart size and mediastinum are normal. Lungs are clear with no acute parenchymal change. Minimal scoliosis is noted within the spine. Impression: 1. Minimal scoliosis. 2. Nothing acute is identified on portable chest x-ray. Diagnostic code #2 This report was dictated in MDT
== END 2019-12-28 17:36 | disposition home or self-care (01) ==
LOC: JD.ED 13:44
DX: K52.9 Noninfective gastroenteritis and colitis, unspecified (principal); R51 Headache; F17.210 Nicotine dependence, cigarettes, uncomplicated; Z91.048 Other nonmedicinal substance allergy status
CPT/HCPCS: 36415; 71045; 80053; 85025; 87635; 94640; 96361; 96374; 96375; 99285; A9270; J1170; J1200; J1885; J2765; J7030; 93010; 99283; U0002

== ENCOUNTER 2020-01-16 21:20 | Emergency (ER) | payer MEDICAID, OTHER ==
--- NOTE | 2020-01-16 21:49 | EDM.PDOC ---
ED HPI GENERAL MEDICAL PROBLEM - General Chief Complaint: Skin Complaint Stated Complaint: SHINGLES Time Seen by Provider: 01/16/20 21:33 Source of Information: Reports: Patient History Limitations: Reports: No Limitations - History of Present Illness INITIAL COMMENTS - FREE TEXT/NARRATIVE: Patient is a 24-year-old female who presents to the emergency department with what she describes as a shingles outbreak. She states that she had shingles in September. She was treated with acyclovir and the symptoms resolved. Last night after getting off work she had some itching on her left thigh and left inner arm. She also had burning and itching to her left flank area. She noticed welts on her leg and arm and then a patch of swelling on her left flank. She has taken Benadryl to help with the itching. She has had some intermittent diarrhea and nausea but denies any vomiting. - Related Data Allergies Allergy/AdvReac Type Severity Reaction Status Date / Time duct tape Allergy Hives Uncoded 12/28/19 13:54 Home Meds: Home Meds Naproxen [Naprosyn] 500 mg PO Q12HR PRN #10 tab 01/16/20 [Rx] valACYclovir [Valtrex] 1,000 mg PO TID 7 Days #20 tablet 01/16/20 [Rx] Past Medical History - Past Health History Medical/Surgical History: Denies Medical/Surgical History HEENT History: Reports: Impaired Vision Cardiovascular History: Reports: None Respiratory History: Reports: Asthma Gastrointestinal History: Reports: GERD Genitourinary History: Reports: None RELAY ASSOCIATE History: Reports: Musculoskeletal History: Reports: None Neurological History: Reports: None Psychiatric History: Reports: Anxiety Endocrine/Metabolic History: Reports: None Hematologic History: Reports: None Immunologic History: Reports: None Oncologic (Cancer) History: Reports: None Dermatologic History: Reports: None - Infectious Disease History Infectious Disease History: Reports: Chicken Pox, Shingles - Past Surgical History HEENT Surgical History: Reports: Adenoidectomy, Oral Surgery, Tonsillectomy Social & Family History - Family History Family Medical History: Noncontributory Respiratory: Reports: Asthma Endocrine/Metabolic: Reports: Hypothyroidism - Tobacco Use Smoking Status *Q: Current Every Day Smoker Years of Tobacco use: 10 Packs/Tins Daily: 0.5 - Caffeine Use Caffeine Use: Reports: Coffee, Energy Drinks, Soda, Tea - Living Situation & Occupation Living situation: Reports: Single, Alone 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 Denies: Fever, Chills, Weakness HEENT: Reports: No Symptoms Respiratory: Reports: No Symptoms Cardiovascular: Reports: No Symptoms Endocrine: Reports: No Symptoms GI/Abdominal: Reports: Diarrhea, Nausea. Denies: Abdominal Pain, Vomiting : Reports: No Symptoms Musculoskeletal: Reports: No Symptoms Skin: Reports: Rash Neurological: Reports: No Symptoms Psychiatric: Reports: No Symptoms Hematologic/Lymphatic: Reports: No Symptoms Immunologic: Reports: No Symptoms ED EXAM, SKIN/RASH Exam: See Below Exam Limited By: No Limitations General Appearance: Alert, WD/WN, No Apparent Distress Respiratory/Chest: No Respiratory Distress, Lungs Clear, Normal Breath Sounds, No Accessory Muscle Use, Chest Non-Tender Cardiovascular: Normal Peripheral Pulses, Regular Rate, Rhythm, No Edema, No Gallop, No JVD, No Murmur, No Rub GI/Abdominal: Normal Bowel Sounds, Soft, Non-Tender, No Organomegaly, No Distention, No Abnormal Bruit, No Mass Skin: Zoster-Like Rash (Flank), Other (3 raised, erythematous papular lesions to the left thigh and 3 to the left inner upper arm. These have the appearance of bug bites as opposed to a zoster-like rash.) Course - Vital Signs Last Recorded V/S: Last Vital Signs Temp 97.4 F 01/16/20 21:29 Pulse 99 01/16/20 21:29 Resp 16 01/16/20 21:29 BP 118/80 01/16/20 21:29 Pulse Ox 98 01/16/20 21:29 - Orders/Labs/Meds Meds: Medications Discontinued Medications Generic Name Dose Route Start Last Admin Trade Name Freq PRN Reason Stop Dose Admin Ketorolac Tromethamine 60 mg 01/16/20 21:53 Toradol IM 01/16/20 21:54 ONETIME ONE Valacyclovir HCl 1,000 mg 01/16/20 21:53 Valtrex PO 01/16/20 21:54 ONETIME ONE - Re-Assessments/Exams Free Text/Narrative Re-Assessment/Exam: , The rash in the patient's flank does seem to be consistent with that of a herpes zoster rash. The lesions on her leg and upper arm appear more to be bug bites. There is a distinct bump with surrounding erythema and they are quite itchy. Recommend that she continue to take Benadryl as needed for the bug bites. We will start her on acyclovir for the shingles to her left flank. We will give her a shot of Toradol in the ER and also sent a prescription for Napr osyn. Recommend that she purchase a Benadryl topical ointment to apply over the bug bites. She is in agreement with this plan. Discharge instructions as documented. Departure - Departure Time of Disposition: 21:55 Disposition: Home, Self-Care 01 Clinical Impression: Bug bite Qualifiers: Encounter type: initial encounter Qualified Code(s): W57.XXXA - Bitten or stung by nonvenomous insect and other nonvenomous arthropods, initial encounter Shingles Qualifiers: Herpes zoster complications: without complications Qualified Code(s): B02.9 - Zoster without complications - Discharge Information *PRESCRIPTION DRUG MONITORING PROGRAM REVIEWED*: No *COPY OF PRESCRIPTION DRUG MONITORING REPORT IN PATIENT NAMRATA: No Prescriptions: Naproxen [Naprosyn] 500 mg PO Q12HR PRN #10 tab PRN Reason: Pain valACYclovir [Valtrex] 1,000 mg PO TID 7 Days #20 tablet Instructions: Shingles, [id number] Referrals: PCP,Not In Area [Primary Care Provider] - Forms: ED Department Discharge Additional Instructions: You were seen in the emergency department tonight for a painful rash to your left flank, as well as painful, itchy welts to your left thigh and left upper arm. On exam, the rash on your left flank does appear to be consistent with a shingles rash; however, the lesions on your leg and arm appear to be bug bites of some kind. You have been started on valacyclovir for your shingles rash. The first dose was given in ER and the remaining doses were sent by electronic prescription to [facility] [place]. While in ER, you also received an injection of Toradol for pain. A prescription for Naprosyn has been send to [facility] [place]. Use this as needed for pain. Recommend that you also purchase Benadryl cream to apply to the lesions on your leg and arm. This will help with the itching and inflammation. Return to the ER as needed. Sepsis Event Note (ED) - Evaluation Sepsis Screening Result: No Definite Risk - Focused Exam Vital Signs: Vital Signs Temp Pulse Resp BP Pulse Ox 01/16/20 21:29 97.4 F 99 16 118/80 98
[2020-01-16] MEDS ORDERED: Ketorolac 60 MG/2 ML SDV IM ONE (21:53)
[2020-01-16] MEDS ORDERED: valACYclovir 1,000 MG Tab PO ONE (21:53)
== END 2020-01-16 22:38 | disposition home or self-care (01) ==
LOC: JD.ED 21:20
DX: S70.362A Insect bite (nonvenomous), left thigh, initial encounter (principal); S40.862A Insect bite (nonvenomous) of left upper arm, initial encounter; B02.9 Zoster without complications; J45.909 Unspecified asthma, uncomplicated; F17.210 Nicotine dependence, cigarettes, uncomplicated; Z91.048 Other nonmedicinal substance allergy status; W57.XXXA Bitten or stung by nonvenomous insect and other nonvenomous arthropods, initial encounter
CPT/HCPCS: 96372; 99282; A9270; J1885; 99283

== ENCOUNTER 2020-03-06 18:33 | Emergency (ER) | payer MEDICAID, OTHER ==
[2020-03-06] MEDS ORDERED: Sodium Chloride 0.9% 1,000 ML IV ONE (19:06)
[2020-03-06] MEDS ORDERED: diphenhydrAMINE 50 MG/ML SDV IVPUSH ONE (19:06)
[2020-03-06] MEDS ORDERED: Ketorolac 30 MG/ML SDV IVPUSH ONE (19:06)
[2020-03-06] MEDS ORDERED: Sodium Chloride 0.9% 10 ML Syringe FLUSH PRN (19:06)
[2020-03-06] MEDS ORDERED: Metoclopramide 10 MG/2 ML SDV IVPUSH ONE (19:06)
--- NOTE | 2020-03-06 19:15 | EDM.PDOC ---
ED HPI GENERAL MEDICAL PROBLEM - General Chief Complaint: Head Injury Stated Complaint: head injury Time Seen by Provider: 03/06/20 18:44 Source of Information: Reports: Patient, RN Notes Reviewed History Limitations: Reports: No Limitations - History of Present Illness INITIAL COMMENTS - FREE TEXT/NARRATIVE: Patient is a 24-year-old female who presents to the ED for the evaluation of a head injury. Patient states that she was stepping out of her trailer house, on her way to work, when she lost her balance and missed the last step. She states that she then fell, and hit the back of her head/neck on the trailer steps. She states she did not lose consciousness at this time. She states since then, she is felt dizzy/lightheaded, has a ringing in her ears, she feels nauseous like she wants to throw up. She took some Tylenol for the headache, but states this did not help much. She denies any chance of . She notes that she has a history of migraine headaches, and is been having on and off migraines for the past week or 2, but states she now has a full-blown migraine. She denies any fever/chills, cough/shortness of breath, nausea/vomiting/diarrhea. 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: Neurological History: Reports: Migraines Psychiatric History: Reports: Anxiety - Infectious Disease History Infectious Disease History: Reports: Chicken Pox, Shingles - Past Surgical History HEENT Surgical History: Reports: Adenoidectomy, Oral Surgery, Tonsillectomy Social & Family History - Family History Family Medical History: Noncontributory Respiratory: Reports: Asthma Endocrine/Metabolic: Reports: Hypothyroidism - Tobacco Use Smoking Status *Q: Current Every Day Smoker Years of Tobacco use: 15 Packs/Tins Daily: 0.5 - Caffeine Use Caffeine Use: Reports: Coffee, Energy Drinks, Soda, Tea - Living Situation & Occupation Living situation: Reports: Single, Alone 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 ED EXAM, HEAD INJURY - Physical Exam Exam: See Below Exam Limited By: No Limitations General Appearance: Alert, WD/WN, No Apparent Distress Head: Atraumatic, Normocephalic Nexus Criteria: No: Posterior, Midline Cervical Tenderness, Evidence of Intoxication, Altered Level of Consciousness, Focal Neurological Deficit, Painful Distraction Injuries Eyes: Bilateral Eye: EOMI, Normal Inspection, PERRL Ears: Normal External Exam, Normal Canal, Hearing Grossly Normal, Normal TMs Nose: Normal Inspection Throat/Mouth: Normal Inspection, Normal Lips, Normal Teeth Neck: Full Range of Motion, Normal Alignment, Normal Inspection, Tender Lateral (along the musculature) Respiratory: No Respiratory Distress, Lungs Clear, Normal Breath Sounds, No Accessory Muscle Use, Chest Non-Tender Cardiovascular: Normal Peripheral Pulses, Regular Rate, Rhythm, No Murmur GI/Abdominal Exam: Normal Bowel Sounds, Soft, Non-Tender, No Distention, No Mass Extremities: Normal Inspection, Normal Capillary Refill Neurologic: reexaminer II-XII nml As Tested, No Motor/Sensory Deficits, Alert, Normal Mood/Affect, Oriented x 3 Skin: Normal Color, Warm/Dry - [place] Coma Score Best Eye Response ([place]): (4) Open Spontaneously Best Verbal Response ([place]): (5) Oriented Best Motor Response (Alex): (6) Obeys Commands Alex Total: 15 Course - Vital Signs Last Recorded V/S: Last Vital Signs Temp 97.5 F 03/06/20 18:43 Pulse 100 03/06/20 18:43 Resp 16 03/06/20 18:43 BP 126/82 03/06/20 18:43 Pulse Ox 100 03/06/20 18:43 - Orders/Labs/Meds Orders: Active Orders 24 hr Category Date Time Status Peripheral IV Insertion Adult [OM.PC] Routine Oth 03/06/20 19:06 Ordered Meds: Medications Discontinued Medications Generic Name Dose Route Start Last Admin Trade Name Harika PRN Reason Stop Dose Admin Diphenhydramine HCl 25 mg 03/06/20 19:06 03/06/20 19:19 Benadryl IVPUSH 03/06/20 19:07 25 mg ONETIME ONE Administration Sodium Chloride 1,000 mls @ 999 mls/hr 03/06/20 19:06 03/06/20 19:18 Normal Saline IV 03/06/20 20:06 999 mls/hr ASDIRECTED ONE Administration Ketorolac Tromethamine 30 mg 03/06/20 19:06 03/06/20 19:20 Toradol IVPUSH 03/06/20 19:07 30 mg ONETIME ONE Administration Metoclopramide HCl 10 mg 03/06/20 19:06 03/06/20 19:18 Reglan IVPUSH 03/06/20 19:07 10 mg ONETIME ONE Administration Sodium Chloride 10 ml 03/06/20 19:06 03/06/20 19:19 Saline Flush FLUSH 10 ml ASDIRECTED PRN Administration Keep Vein Open - Re-Assessments/Exams Free Text/Narrative Re-Assessment/Exam: 03/06/20 19:18 Patient presents to the ED for evaluation of her head injury. States she is having a pretty severe migraine. I did go over the pros and cons of imaging versus no imaging, patient would prefer not to have CT at this time, but she would like medications for her headache. Have ordered Toradol, Benadryl, Reglan, and some IV fluids for initial management. Will reassess after the medications have been given time to work. Patient will likely be sent home with a prescription for some Fioricet. And a work note for week off as she is likely suffered from concussion. 03/06/20 20:22 Patient reports her headache is much better. We will get the patient going home have a rest, and follow-up as needed for further symptoms. Departure - Departure Time of Disposition: 19:19 Disposition: Home, Self-Care 01 Condition: Good Clinical Impression: Concussion injury of brain Head injury due to trauma Qualifiers: Encounter type: initial encounter Qualified Code(s): S09.90XA - Unspecified injury of head, initial encounter - Discharge Information *PRESCRIPTION DRUG MONITORING PROGRAM REVIEWED*: No *COPY OF PRESCRIPTION DRUG MONITORING REPORT IN PATIENT NAMRATA: No Prescriptions: Acetaminophen/Butalbital/Caff [Fioricet 325-50-40 MG] 1 each PO Q4H PRN #12 tab MDD 6 PRN Reason: Headache Instructions: Post-Concussion Syndrome, [id number] Referrals: PCP,None [Primary Care Provider] - Forms: ED Department Discharge, ED Return to Work/School Form Additional Instructions: You were evaluated in the ED today for your head injury. You have been clinically diagnosed with a concussion. A concussion can affect how the brain works for a while. It may lead to headaches, changes in alertness, or loss of consciousness. Getting better from a concussion takes days to weeks or even months. You may be irritable, have trouble concentrating, or be unable to remember things. You may also have headaches, dizziness, or blurry vision. These problems will likely recover slowly. You may want to get help from family or friends for making important decisions. You may use acetaminophen (Tylenol) 500mg or 600 mg ibuprofen (Advil/Motrin) Q6H for a headache. You DO NOT need to stay in bed. Light activity around the home is okay. But avoid exercise, lifting weights, or other heavy activity. You may want to keep your diet light if you have nausea and vomiting. Drink fluids to stay hydrated. As long as you have symptoms, avoid sports activities, operating machines, being overly active, doing physical labor. Ask your doctor when you can return to your activities. If symptoms DO NOT go away or are not improving after 2 or 3 weeks, talk to your doctor. Call the doctor if you have: -A stiff neck -Fluid and blood leaking from your nose or ears -A hard time waking up or have become more sleepy -A headache that is getting worse, lasts a long time, or is not relieved by [id number] pain relievers -Fever -Vomiting more than 3 times -Problems walking or talking -Changes in speech (slurred, difficult to understand, does not make sense) -Problems thinking straight -Seizures (jerking your arms or legs without control) -Changes in behavior or unusual behavior -Double vision Please return to the ED if your symptoms change or worsen. Sepsis Event Note (ED) - Evaluation Sepsis Screening Result: No Definite Risk - Focused Exam Vital Signs: Vital Signs Temp Pulse Resp BP Pulse Ox 03/06/20 18:43 97.5 F 100 16 126/82 100 - My Orders Last 24 Hours: My Active Orders 03/06/20 19:06 Peripheral IV Insertion Adult [OM.PC] Routine - Assessment/Plan Last 24 Hours: My Active Orders 03/06/20 19:06 Peripheral IV Insertion Adult [OM.PC] Routine
== END 2020-03-06 20:33 | disposition home or self-care (01) ==
LOC: JD.ED 18:33
DX: S06.0X0A Concussion without loss of consciousness, initial encounter (principal); R42 Dizziness and giddiness; F17.210 Nicotine dependence, cigarettes, uncomplicated; Z91.048 Other nonmedicinal substance allergy status; W10.9XXA Fall (on) (from) unspecified stairs and steps, initial encounter; W22.8XXA Striking against or struck by other objects, initial encounter
CPT/HCPCS: 96361; 96374; 96375; 99283; J1200; J1885; J2765; J7030

== ENCOUNTER 2020-03-21 12:47 | Emergency (ER) | payer BC, MEDICAID, OTHER ==
--- NOTE | 2020-03-21 13:25 | EDM.PDOC ---
ED HPI GENERAL MEDICAL PROBLEM - General Chief Complaint: Head Injury Stated Complaint: HEAD INJURY/DIZZY AND NAUSEA Time Seen by Provider: 03/21/20 13:24 - History of Present Illness INITIAL COMMENTS - FREE TEXT/NARRATIVE: 24-year-old female presents to the emergency room with headache and nausea and some dizziness. Patient was diagnosed with a concussion she had a head injury 8 days ago. According to the patient her CT done at [facility] was unremarkable. She has been treated for a concussion with various headache medications and she is worsening at this point she is having significant nausea not eating or drinking much and now she is getting dizzy. Patient denies any fevers or chills. Patient denies any significant past medical problems. Headache Pain Score (Numeric/FACES): 10 - Related Data Allergies Allergy/AdvReac Type Severity Reaction Status Date / Time duct tape Allergy Hives Uncoded 03/21/20 13:43 Home Meds: Home Meds Naproxen [Naprosyn] 500 mg PO Q12HR PRN #10 tab 01/16/20 [Rx] valACYclovir [Valtrex] 1,000 mg PO TID 7 Days #20 tablet 01/16/20 [Rx] Acetaminophen/Butalbital/Caff [Fioricet 325-50-40 MG] 1 each PO Q4H PRN #12 tab MDD 6 03/06/20 [Rx] Ondansetron [Ondansetron ODT] 4 mg PO Q6H PRN #12 tab.rapdis 03/21/20 [Rx] Past Medical History - Past Health History Medical/Surgical History: Denies Medical/Surgical History HEENT History: Reports: Impaired Vision Cardiovascular History: Reports: None Respiratory History: Reports: Asthma Gastrointestinal History: Reports: GERD Genitourinary History: Reports: None MEDICARE COORDINATOR History: Reports: Musculoskeletal History: Reports: None Neurological History: Reports: None Psychiatric History: Reports: Anxiety Endocrine/Metabolic History: Reports: None Hematologic History: Reports: None Immunologic History: Reports: None Oncologic (Cancer) History: Reports: None Dermatologic History: Reports: None - Infectious Disease History Infectious Disease History: Reports: Chicken Pox, Shingles - Past Surgical History HEENT Surgical History: Reports: Adenoidectomy, Oral Surgery, Tonsillectomy Social & Family History - Family History Family Medical History: Noncontributory Respiratory: Reports: Asthma Endocrine/Metabolic: Reports: Hypothyroidism - Caffeine Use Caffeine Use: Reports: Coffee, Energy Drinks, Soda, Tea - Living Situation & Occupation Living situation: Reports: Single, Alone 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) ED ROS GENERAL - Review of Systems Review Of Systems: See Below Constitutional: Reports: No Symptoms HEENT: Reports: No Symptoms Respiratory: Reports: No Symptoms Cardiovascular: Reports: No Symptoms GI/Abdominal: Reports: Nausea : Reports: No Symptoms Musculoskeletal: Reports: No Symptoms Neurological: Reports: Headache Psychiatric: Reports: No Symptoms ED EXAM, HEAD INJURY - Physical Exam Exam: See Below Exam Limited By: No Limitations General Appearance: Alert, No Apparent Distress Head: Atraumatic, Normocephalic Eyes: Bilateral Eye: Normal Inspection, PERRL Ears: Normal External Exam, Normal Canal, Hearing Grossly Normal, Normal TMs Nose: Normal Inspection, Normal Mucousa, No Blood Throat/Mouth: Normal Inspection, Normal Lips, Normal Teeth, Normal Gums, Normal Oropharynx, Normal Voice, No Airway Compromise Neck: Non-Tender, Full Range of Motion, Normal Alignment, Normal Inspection, Other (She has no spinous process tenderness however she has paraspinous muscle tenderness in the especially in the right musculature with pain that radiates up over the top of her scalp.) Respiratory: No Respiratory Distress, Lungs Clear, Normal Breath Sounds Cardiovascular: Regular Rate, Rhythm, No Edema, No Murmur GI/Abdominal Exam: Normal Bowel Sounds, Soft, Non-Tender Back Exam: Normal Inspection. 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: printing supervisor II-XII nml As Tested, No Motor/Sensory Deficits, Normal Mood/Affect, Oriented x 3 Course - Vital Signs Last Recorded V/S: Last Vital Signs Temp 36.5 C 03/21/20 13:25 Pulse 83 03/21/20 13:25 Resp 18 03/21/20 13:25 BP 121/70 03/21/20 13:25 Pulse Ox 97 03/21/20 13:25 - Orders/Labs/Meds Meds: Medications Discontinued Medications Generic Name Dose Route Start Last Admin Trade Name Freq PRN Reason Stop Dose Admin Diphenhydramine HCl 50 mg 03/21/20 13:48 03/21/20 14:01 Benadryl IVPUSH 03/21/20 13:49 50 mg ONETIME ONE Administration Lactated Ringer's 1,000 mls @ 999 mls/hr 03/21/20 13:48 03/21/20 14:01 Ringers, Lactated IV 03/21/20 14:48 999 mls/hr .BOLUS ONE Administration Ketorolac Tromethamine 15 mg 03/21/20 15:57 03/21/20 16:04 Toradol IVPUSH 03/21/20 15:58 15 mg ONETIME ONE Administration Prochlorperazine Edisylate 10 mg 03/21/20 13:48 03/21/20 14:01 Compazine IVPUSH 03/21/20 13:49 10 mg ONETIME ONE Administration - Re-Assessments/Exams Free Text/Narrative Re-Assessment/Exam: 03/21/20 14:11 I ordered a liter of LR 50 mg of Benadryl and 10 mg of Compazine we will see how she does with this 03/21/20 15:53 Is doing much better after the fluids with regards to her nausea her headache is not much better. We will give her 15 mg of IV Toradol and I will refill her Zofran and then the patient really wants to go home so we will discharge her home to rest. He has not used any ibuprofen or Naprosyn since 3:00 this morning Departure - Departure Time of Disposition: 16:12 Disposition: Home, Self-Care 01 Clinical Impression: Concussion with no loss of consciousness, Nausea - Discharge Information Referrals: Nirav Kendrick MD [Primary Care Provider] - Forms: ED Department Discharge, ED Return to Work/School Form Additional Instructions: Return to the emergency room with any questions problems or worsening symptoms. Do not take any ibuprofen or naproxen until midnight tonight. We refilled your Zofran 4 mg 1 every 6 hours #12 to the [facility]. Follow-up with your doctor in 3 days. Sepsis Event Note (ED) - Focused Exam Vital Signs: Vital Signs Temp Pulse Resp BP Pulse Ox 03/21/20 13:25 36.5 C 83 18 121/70 97
[2020-03-21] MEDS ORDERED: Prochlorperazine 10 MG/2 ML SDV IVPUSH ONE (13:48)
[2020-03-21] MEDS ORDERED: Lactated Ringers 1,000 ML IV ONE (13:48)
[2020-03-21] MEDS ORDERED: diphenhydrAMINE 50 MG/ML SDV IVPUSH ONE (13:48)
[2020-03-21] MEDS ORDERED: Ketorolac 15 MG/ML SDV IVPUSH ONE (15:57)
== END 2020-03-21 16:25 | disposition home or self-care (01) ==
LOC: JD.ED 12:47
DX: S06.0X0A Concussion without loss of consciousness, initial encounter (principal); J45.909 Unspecified asthma, uncomplicated; Z91.048 Other nonmedicinal substance allergy status; W10.9XXA Fall (on) (from) unspecified stairs and steps, initial encounter; Y92.009 Unspecified place in unspecified non-institutional (private) residence as the place of occurrence of the external cause
CPT/HCPCS: 96361; 96374; 96375; 99283; J0780; J1200; J1885; J7120

== ENCOUNTER 2020-06-21 22:42 | Emergency (ER) | payer BC, MEDICAID ==
--- NOTE | 2020-06-22 00:08 | EDM.PDOC ---
ED HPI GENERAL MEDICAL PROBLEM - General Chief Complaint: Skin Complaint Stated Complaint: POSS OUTBREAK OF SHINGLES Time Seen by Provider: 06/21/20 23:40 - History of Present Illness INITIAL COMMENTS - FREE TEXT/NARRATIVE: 24-year-old female presents to the emergency room with what she thinks is an outbreak of shingles. This seems to involve her right hand especially her thumb she also has some itchy areas of skin on the dorsum of this hand and on her right back. Been acting up over the last 24 to 36 hours. The patient always has itchy burning skin she uses Eucerin on a fairly regular basis. Patient denies any other problems at this point. The patient has had recurrent shingles first diagnosed in August of this year and has had several episodes to this time. Right Hand Pain Score (Numeric/FACES): 10 - Related Data Allergies Allergy/AdvReac Type Severity Reaction Status Date / Time duct tape Allergy Hives Uncoded 06/21/20 23:03 Home Meds: Home Meds Acetaminophen/Butalbital/Caff [Fioricet 325-50-40 MG] 1 each PO Q4H PRN #12 tab MDD 6 03/06/20 [Rx] valACYclovir [Valtrex] 1,000 mg PO Q8H #20 tablet 06/22/20 [Rx] Past Medical History - Past Health History Medical/Surgical History: Denies Medical/Surgical History HEENT History: Reports: Impaired Vision Cardiovascular History: Reports: None Respiratory History: Reports: Asthma Gastrointestinal History: Reports: GERD Genitourinary History: Reports: None 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: Musculoskeletal History: Reports: None Neurological History: Reports: None Psychiatric History: Reports: Anxiety Endocrine/Metabolic History: Reports: None Hematologic History: Reports: None Immunologic History: Reports: None Oncologic (Cancer) History: Reports: None Dermatologic History: Reports: None - Infectious Disease History Infectious Disease History: Reports: Chicken Pox, Shingles - Past Surgical History HEENT Surgical History: Reports: Adenoidectomy, Oral Surgery, Tonsillectomy Social & Family History - Family History Family Medical History: No Pertinent Family History Respiratory: Reports: Asthma Endocrine/Metabolic: Reports: Hypothyroidism - Tobacco Use Tobacco Use Status *Q: Current Some Day Tobacco User Years of Tobacco use: 6 Packs/Tins Daily: 0.5 - Caffeine Use Caffeine Use: Reports: Energy Drinks, Soda - Recreational Drug Use Recreational Drug Use: No - Living Situation & Occupation Living situation: Reports: Single, Alone 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) ED ROS GENERAL - Review of Systems Review Of Systems: See Below Constitutional: Reports: No Symptoms HEENT: Reports: No Symptoms Respiratory: Reports: No Symptoms Cardiovascular: Reports: No Symptoms GI/Abdominal: Reports: No Symptoms Skin: Reports: Rash (See history of present illness) Neurological: Reports: No Symptoms ED EXAM, SKIN/RASH Exam: See Below Exam Limited By: No Limitations General Appearance: Alert, No Apparent Distress Respiratory/Chest: No Respiratory Distress, Lungs Clear, Normal Breath Sounds Cardiovascular: Regular Rate, Rhythm, No Edema, No Murmur Neurological: Alert, Oriented Skin: Zoster-Like Rash, Other (Lots of dry skin and eczematous changes on the dorsum of her hand and on her right lower back) Course - Vital Signs Last Recorded V/S: Last Vital Signs Temp 36.8 C 06/21/20 22:57 Pulse 115 H 06/21/20 22:57 Resp 18 06/21/20 22:57 BP 122/74 06/21/20 22:57 Pulse Ox 100 06/21/20 22:57 - Orders/Labs/Meds Meds: Medications Discontinued Medications Generic Name Dose Route Start Last Admin Trade Name Harika PRN Reason Stop Dose Admin Valacyclovir HCl 1,000 mg 06/22/20 00:10 06/22/20 00:18 Valtrex PO 06/22/20 00:11 1,000 mg ONETIME ONE Administration - Re-Assessments/Exams Free Text/Narrative Re-Assessment/Exam: 06/22/20 00:06 This is a somewhat odd presentation several episodes of shingles in the same year. Skin changes most consistent with eczema however she has an area along her thumb that could be consistent with developing shingles. Valtrex is for the most part fairly safe we will go ahead and treat it. However I have serious questions about this diagnosis and have strongly urged the patient to follow-up in the clinic have also urged her to continue using her Eucerin cream and when the itching gets bad start using 1% hydrocortisone over the itchy areas. Departure - Departure Time of Disposition: 00:08 Disposition: Home, Self-Care 01 Clinical Impression: Atopic dermatitis Shingles Qualifiers: Herpes zoster complications: without complications Qualified Code(s): B02.9 - Zoster without complications - Discharge Information Prescriptions: valACYclovir [Valtrex] 1,000 mg PO Q8H #20 tablet Referrals: Nirav Kendrick MD [Primary Care Provider] - Forms: ED Department Discharge, ED Return to Work/School Form Additional Instructions: Return to the emergency room with any questions problems or worsening symptoms. You may also follow-up with your regular physician for this. I strongly urged you to follow-up with your head refrigeration engineer for reevaluation. We will treat you with Valtrex for the shingles take 1 3 times a day until all gone. Your first dose was given here in the emergency room the remaining have been E scribed to [facility] in [place]. Continue using your Eucerin several times daily. When the symptoms get worse try 1% hydrocortisone over these areas. Use this twice a day when the symptoms start to improve you can decrease the usage of this. Tylenol or Motrin or if you do not have Motrin use naproxen for pain Sepsis Event Note (ED) - Evaluation Sepsis Screening Result: No Definite Risk - Focused Exam Vital Signs: Vital Signs Temp Pulse Resp BP Pulse Ox 06/21/20 22:57 36.8 C 115 H 18 122/74 100
[2020-06-22] MEDS ORDERED: valACYclovir 1,000 MG Tab PO ONE (00:10)
== END 2020-06-22 00:28 | disposition home or self-care (01) ==
LOC: JD.ED 22:42
DX: B02.9 Zoster without complications (principal); L20.9 Atopic dermatitis, unspecified; J45.909 Unspecified asthma, uncomplicated; F17.210 Nicotine dependence, cigarettes, uncomplicated; Z91.048 Other nonmedicinal substance allergy status
CPT/HCPCS: 99282; A9270; 99283

== ENCOUNTER 2020-07-10 18:30 | Emergency (ER) | payer BC, MEDICAID ==
--- NOTE | 2020-07-10 19:04 | EDM.PDOCBH ---
ED HPI GENERAL MEDICAL PROBLEM - General Chief Complaint: Behavioral/Psych Stated Complaint: sob numbness to left side Time Seen by Provider: 07/10/20 19:04 - History of Present Illness INITIAL COMMENTS - FREE TEXT/NARRATIVE: 25-year-old female presents the emergency room with numbness and shortness of breath. Numbness is mostly on her left [id number] female presents at[place] numbness and shortness of breath. Numbness is mostly in her left side and her shortness of breath is she just cannot breathe. and her shortness of breath as she just can't breathe. Apparently at work she had a low O2 saturation Apparently at work she had a low O2 saturation however here she is 100% on room air however here she's at 100% on room air. She is absolutely convinced that something is wrong with her breathing. The patient has a history of asthma.. She's absolutely convinced that something is wrong with her reading patient has a history of asthma. Her respiratory rate is good respirations do not appear labored. Her respiratory rate is good respirations do not appear labored. She has no other complaints at this time except she is convinced it is not anxietyis.. Patient denies any fevers chills she denies any chance of being . Patient denies any fevers chills she denies any chance being . 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 below) Other Treatments FOAM GUN OPERATOR: albuteral advair inhalers Headache Pain Score (Numeric/FACES): 10 Chest Pain Score (Numeric/FACES): 9 - Related Data Allergies Allergy/AdvReac Type Severity Reaction Status Date / Time duct tape Allergy Hives Uncoded 06/21/20 23:03 Home Meds: Home Meds Acetaminophen/Butalbital/Caff [Fioricet 325-50-40 MG] 1 each PO Q4H PRN #12 tab MDD 6 03/06/20 [Rx] Albuterol Sulfate [Albuterol Sulfate Hfa] 2 puff INH ASDIRECTED 07/10/20 [History] Amitriptyline [Elavil] 100 mg PO BEDTIME 07/10/20 [History] norgestimate-ethinyl estradioL [Tri-Linyah Tablet] 1 tab PO DAILY 07/10/20 [History] valACYclovir [Valtrex] 1,000 mg PO Q8H PRN 07/10/20 [History] Past Medical History - Past Health History Medical/Surgical History: Denies Medical/Surgical History HEENT History: Reports: Impaired Vision Cardiovascular History: Reports: None Respiratory History: Reports: Asthma Gastrointestinal History: Reports: GERD Genitourinary History: Reports: 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 History: Reports: None Neurological History: Reports: None Psychiatric History: Reports: Anxiety Endocrine/Metabolic History: Reports: None Hematologic History: Reports: None Immunologic History: Reports: None Oncologic (Cancer) History: Reports: None Dermatologic History: Reports: None - Infectious Disease History Infectious Disease History: Reports: Chicken Pox, Shingles - Past Surgical History HEENT Surgical History: Reports: Adenoidectomy, Oral Surgery, Tonsillectomy Social & Family History - Family History Family Medical History: No Pertinent Family History Respiratory: Reports: Asthma Endocrine/Metabolic: Reports: Hypothyroidism - Caffeine Use Caffeine Use: Reports: Energy Drinks, Soda - Living Situation & Occupation Living situation: Reports: Single, Alone 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 Denies: Fever, Chills HEENT: Reports: No Symptoms Respiratory: Reports: Shortness of Breath, Wheezing. Denies: Pleuritic Chest Pain Cardiovascular: Reports: No Symptoms. Denies: Chest Pain, Dyspnea on Exertion, Edema Endocrine: Reports: No Symptoms GI/Abdominal: Reports: No Symptoms : Reports: No Symptoms Musculoskeletal: Reports: No Symptoms Skin: Reports: No Symptoms Neurological: Reports: No Symptoms Psychiatric: Reports: No Symptoms Hematologic/Lymphatic: Reports: No Symptoms ED EXAM, BEHAVIORAL HEALTH - Physical Exam Exam: See Below Exam Limited By: No Limitations (She appears quite anxiousshe appears quite anxious) General Appearance: Anxious Eye Exam: Bilateral Eye: Normal Inspection Ears: Normal External Exam, Normal Canal, Hearing Grossly Normal, Normal TMs Nose: Normal Inspection, Normal Mucosa, No Blood Throat/Mouth: Normal Inspection, Normal Lips, Normal Teeth, Normal Gums, Normal Oropharynx, Normal Voice, No Airway Compromise Head: Atraumatic, Normocephalic Neck: Normal Inspection, Supple, Non-Tender, Full Range of Motion. No: Lymphadenopathy (L), Lymphadenopathy (R) Respiratory/Chest: No Respiratory Distress, Lungs Clear, Normal Breath Sounds. No: Respiratory Distress, Rales, Rhonchi, Wheezing, Stridor Cardiovascular: Other (Marshall rate is a little fast I suspect this is due to anxietyrespiratory rate is a little fast a suspect this is due to anxiety) GI/Abdominal: Normal Bowel Sounds, Soft, Non-Tender Back Exam: Normal Inspection. No: CVA Tenderness (L), CVA Tenderness (R) COURSE, BEHAVIORAL HEALTH COMP - Course Vital Signs: Last Vital Signs Temp 36.3 C 07/10/20 18:57 Pulse 110 H 07/10/20 18:57 Resp 20 07/10/20 18:57 BP 126/86 07/10/20 18:57 Pulse Ox 100 07/10/20 19:14 Orders, Labs, Meds: Active Orders 24 hr Category Date Time Status RT Aerosol Therapy [RC] ASDIRECTED Care 07/10/20 19:14 Active Chest 1V Frontal [CR] Stat Exams 07/10/20 19:14 Taken Laboratory Tests 07/10/20 07/10/20 Range/Units 19:39 19:39 WBC 8.68 (3.98-10.04) K/mm3 RBC 5.11 (3.98-5.22) M/mm3 Hgb 14.5 (11.2-15.7) gm/dl Hct 44.2 (34.1-44.9) % MCV 86.5 D (79.4-94.8) fl MCH 28.4 (25.6-32.2) pg MCHC 32.8 (32.2-35.5) g/dl RDW Std Deviation 43.3 (36.4-46.3) fL Plt Count 299 (182-369) K/mm3 MPV 9.2 L (9.4-12.3) fl Neut % (Auto) 68.9 (34.0-71.1) % Lymph % (Auto) 21.2 (19.3-51.7) % Levy % (Auto) 4.7 (4.7-12.5) % Eos % (Auto) 4.6 (0.7-5.8) Baso % (Auto) 0.5 (0.1-1.2) % Neut # (Auto) 5.98 (1.56-6.13) K/mm3 Lymph # (Auto) 1.84 (1.18-3.74) K/mm3 Levy # (Auto) 0.41 H (0.24-0.36) K/mm3 Eos # (Auto) 0.40 H (0.04-0.36) K/mm3 Baso # (Auto) 0.04 (0.01-0.08) K/mm3 Sodium 141 (136-145) mEq/L Potassium 3.3 L (3.5-5.1) mEq/L Chloride 108 H (98-107) mEq/L Carbon Dioxide 20 L (21-32) mEq/L Anion Gap 16.3 H (5-15) BUN 11 (7-18) mg/dL Creatinine 0.9 (0.55-1.02) mg/dL Est Cr Clr Drug Dosing 92.92 mL/min Estimated GFR (MDRD) > 60 (>60) mL/min BUN/Creatinine Ratio 12.2 L (14-18) Glucose 87 (74-106) mg/dL Calcium 9.4 (8.5-10.1) mg/dL Magnesium 1.7 L (1.8-2.4) mg/dl Total Bilirubin 0.6 (0.2-1.0) mg/dL AST 14 L (15-37) U/L ALT 21 (14-59) U/L Alkaline Phosphatase 89 (46-116) U/L Total Protein 7.2 (6.4-8.2) g/dl Albumin 4.0 (3.4-5.0) g/dl Globulin 3.2 gm/dL Albumin/Globulin Ratio 1.3 (1-2) Medications Discontinued Medications Generic Name Dose Route Start Last Admin Trade Name Freq PRN Reason Stop Dose Admin Albuterol/Ipratropium 3 ml 07/10/20 19:14 07/10/20 19:47 Duoneb 3.0-0.5 Mg/3 Ml NEB 07/10/20 19:15 3 ml ONETIME ONE Administration Magnesium Oxide 800 mg 07/10/20 20:35 Magnesium Oxide PO 07/10/20 20:36 ONETIME ONE Potassium Chloride 40 meq 07/10/20 20:35 Klor-Con M20 PO 07/10/20 20:36 ONETIME ONE Discharge vs Psych Eval/Treatment:: 07/10/20 19:24 We will checkwe will check labs and a chest x-ray to make sure we do not miss something labs and chest x-ray make sure illness something and give her a nebulizer treatment and give her a nebulizer treatment.. 07/10/20 20:41 Patient is doing better after the nebulizer treatment her anxiety is better and she is think she is breathing better chest x-ray looks pretty good slightly hyperinflated labs show a minimally decreased magnesium and potassium will treat this orally. Patient has nebulizers at home the Xanax at home and would like to go home but she is concerned she is coming down with something will check a health department Covid test on her Departure - Departure Time of Disposition: 20:41 Disposition: Home, Self-Care 01 Clinical Impression: Reactive airway disease, Anxiety - Discharge Information Referrals: Nirav Kendrick MD [Primary Care Provider] - Forms: ED Department Discharge, ED Return to Work/School Form Additional Instructions: Return to the emergency room with any questions problems or worsening symptoms Use your nebulizer and inhalers as needed. Use your anxiety medications as needed. 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
[2020-07-10] MEDS ORDERED: Albuterol/Ipratropium 3.0-0.5 MG/3 ML Neb Soln NEB ONE (19:14)
[2020-07-10] MEDS ORDERED: Magnesium Oxide 400 MG Tab PO ONE (20:35)
[2020-07-10] MEDS ORDERED: Potassium Chloride 20 MEQ Tab.ER PO ONE (20:35)
--- NOTE | 2020-07-10 21:05 | CR ---
Chest: Portable upright view of the chest was obtained. Comparison: Previous chest x-ray of 12/28/19. Findings: Heart size and mediastinum are normal. Lungs are clear with no acute parenchymal change. Minimal scoliosis is noted within the spine. No acute osseous findings are seen. Impression: 1. Nothing acute is seen on portable chest x-ray. Diagnostic code #2
[2020-07-10] MEDS ORDERED: Ondansetron 4 MG Tab.DIS ONE (21:06)
[2020-07-10] MEDS ORDERED: Ondansetron 4 MG Tab.DIS PO ONE (21:13)
== END 2020-07-10 21:10 | disposition home or self-care (01) ==
LOC: JD.ED 18:30
DX: J45.909 Unspecified asthma, uncomplicated (principal); F41.9 Anxiety disorder, unspecified; Z91.048 Other nonmedicinal substance allergy status; Z20.828 Contact with and (suspected) exposure to other viral communicable diseases
CPT/HCPCS: 36415; 71045; 80053; 83735; 85025; 87635; 94640; 99285; A9270; J7620-GY; U0002

== ENCOUNTER 2020-09-07 09:48 | Emergency (ER) | payer BC, OTHER ==
[2020-09-07] MEDS ORDERED: Iopamidol 612 MG/ML 100 ML Bottle IVPUSH ONE (11:19)
[2020-09-07] MEDS ORDERED: Sodium Chloride 0.9% 10 ML Syringe FLUSH PRN (11:19)
--- NOTE | 2020-09-07 12:14 | CT ---
CT maxillofacial structures Technique: Multiple axial sections through the maxillofacial structures were obtained. Intravenous contrast was utilized. Reconstructed coronal and sagittal images were obtained. Findings: Right and left orbits appear symmetric between right and left sides. Lacrimal glands are normal. No retro-orbital abnormality is appreciated. No acute paranasal sinus findings are seen. No acute mastoid sinus findings are seen. No acute abnormality is seen within other facial bone structures. No fluid collections are seen to indicate a discrete abscess. Impression: 1. Nothing acute is seen on CT study of the maxillofacial structures. Diagnostic code #1
[2020-09-07] MEDS ORDERED: cefTRIAXone 1 GM in Sodium Chloride 0.9% 100 ML IV ONE (13:13)
--- NOTE | 2020-09-07 13:36 | EDM.PDOC ---
ED HPI GENERAL MEDICAL PROBLEM - General Chief Complaint: ENT Problem Stated Complaint: SENT BY [facility] FOR ORBIT CELLULITIS Time Seen by Provider: 09/07/20 10:30 Source of Information: Reports: Patient, RN Notes Reviewed - History of Present Illness INITIAL COMMENTS - FREE TEXT/NARRATIVE: 25 yr old female with redness, discomfort R lower eyelid and tissue below R eye several days ago. Started keflex 2 days ago but only 500 mb bid. She believes the area of redness is getting worse, discomfort also getting worse. Her provider suggested she come to ED for CT. No fever, possible chills. Eye Pain Score (Numeric/FACES): 10 - Related Data Allergies Allergy/AdvReac Type Severity Reaction Status Date / Time duct tape Allergy Hives Uncoded 09/07/20 09:58 Home Meds: Home Meds Albuterol Sulfate [Albuterol Sulfate Hfa] 2 puff INH ASDIRECTED 07/10/20 [History] norgestimate-ethinyl estradioL [Tri-Linyah Tablet] 1 tab PO DAILY 07/10/20 [History] Doxycycline [Vibramycin] 100 mg PO BID #20 cap 09/07/20 [Rx] Ondansetron [Zofran ODT] 4 mg PO Q8HR PRN #7 tab.dis 09/07/20 [Rx] Zolpidem [Ambien] 1 tab PO BEDTIME 09/07/20 [History] cephALEXin [Cephalexin] 500 mg PO Q6HR #20 capsule 09/07/20 [Rx] cephALEXin [Keflex] 1 tab PO BID 09/07/20 [History] Past Medical History - Past Health History Medical/Surgical History: Denies Medical/Surgical History HEENT History: Reports: Impaired Vision Cardiovascular History: Reports: None Respiratory History: Reports: Asthma Gastrointestinal History: Reports: GERD Genitourinary History: Reports: None 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 History: Reports: None Neurological History: Reports: None Psychiatric History: Reports: Anxiety Endocrine/Metabolic History: Reports: None Hematologic History: Reports: None Immunologic History: Reports: None Oncologic (Cancer) History: Reports: None Dermatologic History: Reports: None - Infectious Disease History Infectious Disease History: Reports: Chicken Pox, Shingles - Past Surgical History HEENT Surgical History: Reports: Adenoidectomy, Oral Surgery, Tonsillectomy Social & Family History - Family History Family Medical History: No Pertinent Family History Respiratory: Reports: Asthma Endocrine/Metabolic: Reports: Hypothyroidism - Tobacco Use Tobacco Use Status *Q: Current Every Day Tobacco User Years of Tobacco use: 8 Packs/Tins Daily: 0.5 - Caffeine Use Caffeine Use: Reports: Coffee, Energy Drinks, Soda, Tea - Recreational Drug Use Recreational Drug Use: No - Living Situation & Occupation Living situation: Reports: Single, Alone 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 Denies: Eye Discharge, Eye Pain Respiratory: Denies: Shortness of Breath Cardiovascular: Denies: Chest Pain GI/Abdominal: Denies: Abdominal Pain, Nausea, Vomiting Musculoskeletal: Reports: No Symptoms Skin: Reports: Erythema Neurological: Reports: Headache ED EXAM GENERAL W FULL EYE - Physical Exam Exam: See Below General Appearance: Alert, Mild Distress Eye Exam: Bilateral Eye: PERRL Conjunctiva & Sclera: Bilateral: Normal Appearance Cornea Exam: Bilateral: Normal Appearance Head: Atraumatic, Other (R lower eyelid is inflamed, small area of erythema, very mild swelling area just below R eye, no vesicular or drainage, remainder of face is normal) Neck: Supple Respiratory/Chest: No Respiratory Distress, Lungs Clear Cardiovascular: Regular Rate, Rhythm Extremities: Normal Inspection, Normal Range of Motion Skin Exam: Warm, Dry, No Rash Course - Vital Signs Last Recorded V/S: Last Vital Signs Temp 97.8 F 09/07/20 09:55 Pulse 100 09/07/20 09:55 Resp 18 09/07/20 09:55 BP 110/95 H 09/07/20 09:55 Pulse Ox 99 09/07/20 09:55 - Orders/Labs/Meds Labs: Laboratory Tests 09/07/20 09/07/20 Range/Units 10:30 10:30 WBC 6.06 (3.98-10.04) K/mm3 RBC 4.80 (3.98-5.22) M/mm3 Hgb 13.6 (11.2-15.7) gm/dl Hct 42.2 (34.1-44.9) % MCV 87.9 (79.4-94.8) fl MCH 28.3 (25.6-32.2) pg MCHC 32.2 (32.2-35.5) g/dl RDW Std Deviation 49.6 H (36.4-46.3) fL Plt Count 329 (182-369) K/mm3 MPV 9.1 L (9.4-12.3) fl Neut % (Auto) 63.8 (34.0-71.1) % Lymph % (Auto) 26.6 (19.3-51.7) % Warrick % (Auto) 5.8 (4.7-12.5) % Eos % (Auto) 3.1 (0.7-5.8) Baso % (Auto) 0.7 (0.1-1.2) % Neut # (Auto) 3.87 (1.56-6.13) K/mm3 Lymph # (Auto) 1.61 (1.18-3.74) K/mm3 Warrick # (Auto) 0.35 (0.24-0.36) K/mm3 Eos # (Auto) 0.19 (0.04-0.36) K/mm3 Baso # (Auto) 0.04 (0.01-0.08) K/mm3 Sodium 142 (136-145) mEq/L Potassium 3.9 (3.5-5.1) mEq/L Chloride 107 (98-107) mEq/L Carbon Dioxide 24 (21-32) mEq/L Anion Gap 14.9 (5-15) BUN 9 (7-18) mg/dL Creatinine 0.8 (0.55-1.02) mg/dL Est Cr Clr Drug Dosing 104.54 mL/min Estimated GFR (MDRD) > 60 (>60) mL/min BUN/Creatinine Ratio 11.3 L (14-18) Glucose 98 (74-106) mg/dL Calcium 9.7 (8.5-10.1) mg/dL Total Bilirubin 0.4 (0.2-1.0) mg/dL AST 19 (15-37) U/L ALT 27 (14-59) U/L Alkaline Phosphatase 74 (46-116) U/L C-Reactive Protein 0.6 (<1.0) mg/dL Total Protein 7.1 (6.4-8.2) g/dl Albumin 3.7 (3.4-5.0) g/dl Globulin 3.4 gm/dL Albumin/Globulin Ratio 1.1 (1-2) Meds: Medications Discontinued Medications Generic Name Dose Route Start Last Admin Trade Name Russq PRN Reason Stop Dose Admin Ceftriaxone Sodium 1 gm/ 100 mls @ 200 mls/hr 09/07/20 13:13 09/07/20 13:34 Sodium Chloride IV 09/07/20 13:42 200 mls/hr ONETIME ONE Administration Iopamidol 100 ml 09/07/20 11:19 09/07/20 11:51 Isovue-300 (61%) IVPUSH 09/07/20 11:20 100 ml ONETIME ONE Administration Sodium Chloride 10 ml 09/07/20 11:19 09/07/20 11:51 Saline Flush FLUSH 10 ml ONETIME PRN Administration IV FLUSH - Re-Assessments/Exams Free Text/Narrative Re-Assessment/Exam: 09/08/20 14:53 WBC 6,000, CRP 0.6. CT of face, no acute findings, see Radiology report for details. Have given rocephin a gram IV, increased her dosage of cephalexin from bid to qid. Also prescribed doxycycline. Discharge instr. as documented. Departure - Departure Time of Disposition: 13:32 Disposition: Home, Self-Care 01 Condition: Fair Clinical Impression: Facial cellulitis - Discharge Information Prescriptions: cephALEXin [Cephalexin] 500 mg PO Q6HR #20 capsule Doxycycline [Vibramycin] 100 mg PO BID #20 cap Ondansetron [Zofran ODT] 4 mg PO Q8HR PRN #7 tab.dis PRN Reason: Nausea/Vomiting Instructions: Cellulitis, Adult, [id number] Referrals: Nriav Kendrick MD [Primary Care Provider] - Forms: ED Department Discharge, ED Return to Work/School Form Additional Instructions: Increase keflex or cephalexin to 500 mg 4 times daily, 20 extra capsule prescription sent to [facility]. Doxycycline 100 mg twice daily for 10 days, zofran 4 mg ODT q 8 hr if needed for severe nausea or vomiting. Those scripts also sent to [facility]. Follow up clinic in 5 to 7 days for recheck. Return to ED as needed if symptoms worsening in any way. Sepsis Event Note (ED) - Evaluation Sepsis Screening Result: No Definite Risk
== END 2020-09-07 14:02 | disposition home or self-care (01) ==
LOC: JD.ED 09:48
DX: L03.211 Cellulitis of face (principal); J45.909 Unspecified asthma, uncomplicated; Z91.048 Other nonmedicinal substance allergy status; Z79.899 Other long term (current) drug therapy; Z72.0 Tobacco use
CPT/HCPCS: 36415; 70487; 80053; 85025; 86140; 96365; 99283; J0696; Q9967; 99284

== ENCOUNTER 2020-10-17 06:27 | Emergency (ER) | payer BC, OTHER ==
[2020-10-17] MEDS ORDERED: Sodium Chloride 0.9% 1,000 ML IV SCH (07:00)
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
[2020-10-17] MEDS ORDERED: Metoclopramide 10 MG/2 ML SDV IVPUSH ONE (07:13)
[2020-10-17] MEDS ORDERED: HYDROmorphone 0.5 MG/0.5 ML Syringe IVPUSH ONE (07:14)
[2020-10-17] MEDS ORDERED: diphenhydrAMINE 50 MG/ML SDV IVPUSH ONE (07:14)
--- NOTE | 2020-10-17 07:54 | CT ---
Head CT Technique: Multiple axial sections through the brain were obtained. Intravenous contrast was not utilized. Reconstructed coronal and sagittal images were also obtained. Comparison: No prior intracranial imaging is available. Findings: Ventricles along with basal cisterns and sulci over the convexities are within normal limits for the patient's age. No abnormal parenchymal densities are seen. No evidence of intracranial hemorrhage. No midline shift or mass-effect is seen. Bone window settings were reviewed. Visualized mastoid sinuses and paranasal sinuses show nothing acute. No acute calvarial finding is seen. Impression: 1. Nothing acute is seen on noncontrast head CT exam. Diagnostic code #1
== END 2020-10-17 09:14 | disposition home or self-care (01) ==
LOC: JD.ED 06:27
DX: S06.0X0A Concussion without loss of consciousness, initial encounter (principal); J45.909 Unspecified asthma, uncomplicated; Z72.0 Tobacco use; Z91.048 Other nonmedicinal substance allergy status; W22.8XXA Striking against or struck by other objects, initial encounter
CPT/HCPCS: 36415; 70450; 70450-26; 80053; 84484; 85007; 85027; 93005; 93010; 96374; 96375; 99283; 99284-25; J1170; J1200; J2765; J7030

== ENCOUNTER 2020-10-26 06:35 | Emergency (ER) | payer BC, OTHER ==
[2020-10-26] MEDS ORDERED: Acetaminophen 325 MG Tab PO ONE (07:08)
--- NOTE | 2020-10-26 07:08 | EDM.PDOC ---
ED HPI GENERAL MEDICAL PROBLEM - General Chief Complaint: Respiratory Problem Stated Complaint: SOB Time Seen by Provider: 10/26/20 07:03 Source of Information: Reports: Patient History Limitations: Reports: No Limitations - History of Present Illness INITIAL COMMENTS - FREE TEXT/NARRATIVE: 25-year-old female presents to the ED with paroxysmal productive cough with some flecks of blood appreciated in her sputum. Symptoms started on Friday, October 21. She is coughing to the point of near syncope. Very lightheaded with coughing. Cough is productive of yellowish sputum. She has associated fever and chills. She has a history of asthma and has ran out of her albuterol inhaler. Symptoms developed over the last 6 days. Appetite is poor. Has associated diarrhea 2-3 times per day. She gets tested for Covid on a weekly basis due to her work. All Covid test have been negative. She had a rapid test done last night which was negative in the workplace. She denies any possibility of . Associated mild sore throat. Mild nasal congestion and left ear fullness without pain. Central upper chest pain from coughing. Decreased appetite. Onset: Gradual Onset Date: 10/21/20 Duration: Day(s):, Constant, Getting Worse Location: Reports: Chest (Paroxysmal productive cough with mild hemoptysis from coughing so hard. Associated diffuse wheezing. Central chest discomfort.) Quality: Reports: Ache, Burning (With coughing upper anterior chest.) Severity: Moderate Improves with: Reports: None Worsens with: Reports: None Context: Denies: Activity, Exercise, Lifting, Sick Contact, Trauma, Other Associated Symptoms: Reports: Chest Pain (For anterior chest pain from coughing so much.), Cough, cough w sputum, Fever/Chills, Headaches, Loss of Appetite, Malaise, Nausea/Vomiting, Shortness of Breath, Weakness (Nausea without vomiting). 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, NSAIDS Chest Pain Score (Numeric/FACES): 10 - Related Data Allergies Allergy/AdvReac Type Severity Reaction Status Date / Time duct tape Allergy Hives Uncoded 10/26/20 06:46 Home Meds: Home Meds Albuterol Sulfate [Albuterol Sulfate Hfa] 2 puff INH ASDIRECTED 07/10/20 [History] norgestimate-ethinyl estradioL [Tri-Linyah Tablet] 1 tab PO DAILY 07/10/20 [History] Zolpidem [Ambien] 1 tab PO BEDTIME 09/07/20 [History] Albuterol Sulfate [Albuterol Sulfate Hfa] 18 gm IH Q2H PRN #1 hfa.aer.ad 10/26/20 [Rx] Albuterol/Ipratropium [DuoNeb 3.0-0.5 MG/3 ML] 3 ml .XX Q6H PRN #36 neb 10/26/20 [Rx] Amitriptyline [Elavil] 100 mg PO DAILY PRN 10/26/20 [History] Doxycycline [Vibra-Tabs] 100 mg PO Q12HR #18 tab 10/26/20 [Rx] predniSONE [Prednisone] 20 mg PO ASDIRECTED PRN #15 tablet 10/26/20 [Rx] Past Medical History - Past Health History Medical/Surgical History: Denies Medical/Surgical History HEENT History: Reports: Impaired Vision Cardiovascular History: Reports: None Respiratory History: Reports: Asthma, Bronchitis, Recurrent, Pneumonia, Recurrent Gastrointestinal History: Reports: Chronic Diarrhea, GERD, Irritable Bowel Syndrome Genitourinary History: Reports: None 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: Musculoskeletal History: Reports: None Neurological History: Reports: Head Trauma, Migraines Psychiatric History: Reports: Anxiety Endocrine/Metabolic History: Reports: None Hematologic History: Reports: None Immunologic History: Reports: None Oncologic (Cancer) History: Reports: None Dermatologic History: Reports: None - Infectious Disease History Infectious Disease History: Reports: Chicken Pox, Shingles - Past Surgical History HEENT Surgical History: Reports: Adenoidectomy, Oral Surgery, Tonsillectomy Social & Family History - Family History Family Medical History: No Pertinent Family History Respiratory: Reports: Asthma Endocrine/Metabolic: Reports: Hypothyroidism - Tobacco Use Tobacco Use Status *Q: Current Every Day Tobacco User Years of Tobacco use: 10 Packs/Tins Daily: 0.7 - Caffeine Use Caffeine Use: Reports: Coffee, Energy Drinks - Recreational Drug Use Recreational Drug Use: No - Living Situation & Occupation Living situation: Reports: Single, Alone 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 Denies: Glasses Respiratory: Reports: Shortness of Breath, Wheezing, Cough, Sputum, Hemoptysis (Like some blood appreciated in sputum which is yellow in color.). Denies: Pleuritic Chest Pain Cardiovascular: Reports: Chest Pain, Lightheadedness. Denies: Blood Pressure Problem (Upper anterior chest pain worsened with by coughing.), Claudication, Dyspnea on Exertion, Edema, Orthopnea Endocrine: Reports: Fatigue (Severe paroxysmal coughing makes her lightheaded and feels like she might faint.) GI/Abdominal: Reports: Diarrhea (2-3 loose bowel movements per day the last 2 days.), Decreased Appetite : Reports: No Symptoms Musculoskeletal: Reports: No Symptoms Skin: Reports: No Symptoms Neurological: Reports: Headache Psychiatric: Reports: No Symptoms Hematologic/Lymphatic: Reports: No Symptoms Immunologic: Reports: No Symptoms ED EXAM, GENERAL - Physical Exam Exam: See Below Exam Limited By: No Limitations General Appearance: Alert, WD/WN, Mild Distress, Other (Patient appears ill. She is warm to palpation as well. Temperature is recorded 36.4 but she feels much warmer than this. Heart rate was 99 and sinus. Respiratory is 20 with O2 sats of 96% room air BP 130/80.) Eye Exam: Bilateral Eye: Normal Inspection (No blepharal pallor or scleral icterus.), PERRL Ears: Other (Mild JENNYFER left ear.) Throat/Mouth: Normal Inspection, Normal Lips, Normal Oropharynx, Other (Tongue is moist and coated white. Oropharynx is diffusely erythematous from coughing. No exudate) Head: Atraumatic, Normocephalic Neck: Normal Inspection, Supple, Non-Tender, Full Range of Motion. No: Carotid Bruit, Lymphadenopathy (L), Lymphadenopathy (R), Thyromegaly Respiratory/Chest: Respiratory Distress (Mild tachypnea), Decreased Breath Sounds (Mildly diminished breath sounds at the base), Rhonchi ( throughout all lung lobes. Rhonchi throughout both lungs posteriorly and anteriorly.), Wheezing (Diffuse wheezing). No: Lungs Clear, Normal Breath Sounds, Stridor, Pleural Rub, Accessory Muscle Use, Retractions, Splinting Cardiovascular: Normal Peripheral Pulses, Regular Rate, Rhythm, No Edema, No Gallop, No Murmur, No Rub Peripheral Pulses: 3+: Carotid (L), Carotid (R), Posterior Tibial (L), Posterior Tibial (R), Dorsalis Pedis (L), Dorsalis Pedis (R) GI/Abdominal: Normal Bowel Sounds, Soft, Non-Tender, No Organomegaly, No Mass, Pelvis Stable Back Exam: Normal Inspection, Full Range of Motion. No: CVA Tenderness (L), CVA Tenderness (R) Extremities: Normal Inspection, Normal Range of Motion, Non-Tender, No Pedal Edema Neurological: Alert, Oriented, CN II-XII Intact, Normal Cognition Psychiatric: Normal Affect, Normal Mood Skin Exam: Warm, Dry, Intact, Normal Color, No Rash Course - Vital Signs Last Recorded V/S: Last Vital Signs Temp 36.8 C 10/26/20 07:18 Pulse 99 10/26/20 06:44 Resp 20 10/26/20 06:44 BP 130/80 10/26/20 06:44 Pulse Ox 99 10/26/20 08:49 - Orders/Labs/Meds Orders: Active Orders 24 hr Category Date Time Status RT Aerosol Therapy [RC] ASDIRECTED Care 10/26/20 07:11 Active RT Aerosol Therapy [RC] ASDIRECTED Care 10/26/20 08:43 Active CULTURE BLOOD [BC] Stat Lab 10/26/20 07:35 Received CULTURE BLOOD [BC] Stat Lab 10/26/20 07:43 Received Dextrose 5%-0.9% NaCl [Dextrose 5%-Normal Saline] 1,000 Med 10/26/20 07:15 Active ml IV ASDIRECTED Blood Culture x2 Reflex Set [OM.PC] Stat Oth 10/26/20 07:10 Ordered Medication Orders Dextrose/Sodium Chloride (Dextrose 5%-Normal Saline) 1,000 mls @ 999 mls/hr IV ASDIRECTED DIANE Last Admin: 10/26/20 07:19 Dose: 999 mls/hr Documented by: LISSY Labs: Laboratory Tests 10/26/20 10/26/20 10/26/20 Range/Units 07:10 07:10 07:35 WBC 8.55 (3.98-10.04) K/mm3 RBC 4.60 (3.98-5.22) M/mm3 Hgb 12.8 (11.2-15.7) gm/dl Hct 40.2 (34.1-44.9) % MCV 87.4 (79.4-94.8) fl MCH 27.8 (25.6-32.2) pg MCHC 31.8 L (32.2-35.5) g/dl RDW Std Deviation 48.5 H (36.4-46.3) fL Plt Count 330 (182-369) K/mm3 MPV 9.3 L (9.4-12.3) fl Neut % (Auto) 54.5 (34.0-71.1) % Lymph % (Auto) 31.7 (19.3-51.7) % Hickman % (Auto) 6.0 (4.7-12.5) % Eos % (Auto) 7.1 H (0.7-5.8) Baso % (Auto) 0.5 (0.1-1.2) % Neut # (Auto) 4.66 (1.56-6.13) K/mm3 Lymph # (Auto) 2.71 (1.18-3.74) K/mm3 Hickman # (Auto) 0.51 H (0.24-0.36) K/mm3 Eos # (Auto) 0.61 H (0.04-0.36) K/mm3 Baso # (Auto) 0.04 (0.01-0.08) K/mm3 Sodium 139 (136-145) mEq/L Potassium 3.3 L (3.5-5.1) mEq/L Chloride 107 (98-107) mEq/L Carbon Dioxide 23 (21-32) mEq/L Anion Gap 12.3 (5-15) BUN 9 (7-18) mg/dL Creatinine 0.8 (0.55-1.02) mg/dL Est Cr Clr Drug Dosing 104.54 mL/min Estimated GFR (MDRD) > 60 (>60) mL/min BUN/Creatinine Ratio 11.3 L (14-18) Glucose 94 (74-106) mg/dL Lactic Acid 0.6 (0.4-2.0) mmol/L Calcium 8.8 (8.5-10.1) mg/dL Magnesium 2.0 (1.8-2.4) mg/dl Total Bilirubin 0.2 (0.2-1.0) mg/dL AST 17 (15-37) U/L ALT 21 (14-59) U/L Alkaline Phosphatase 85 (46-116) U/L C-Reactive Protein 1.8 H* (<1.0) mg/dL Total Protein 7.5 (6.4-8.2) g/dl Albumin 3.8 (3.4-5.0) g/dl Globulin 3.7 gm/dL Albumin/Globulin Ratio 1.0 (1-2) Meds: Medications Generic Name Dose Route Start Last Admin Trade Name Freq PRN Reason Stop Dose Admin Dextrose/Sodium Chloride 1,000 mls @ 999 mls/hr 10/26/20 07:15 10/26/20 07:19 Dextrose 5%-Normal Saline IV 999 mls/hr ASDIRECTED DIANE Administration Discontinued Medications Generic Name Dose Route Start Last Admin Trade Name Freq PRN Reason Stop Dose Admin Acetaminophen 975 mg 10/26/20 07:08 10/26/20 07:18 Acetaminophen 325 Mg Tab PO 10/26/20 07:09 975 mg ONETIME ONE Administration Albuterol 7.5 mg 10/26/20 08:42 10/26/20 08:48 Albuterol 0.5% 2.5 Mg/0.5 Ml Neb Soln NEB 10/26/20 08:43 7.5 mg ONETIME ONE Administration Albuterol/Ipratropium 3 ml 10/26/20 07:11 10/26/20 07:24 Albuterol/Ipratropium 3.0-0.5 Mg/3 Ml Neb Soln NEB 10/26/20 07:12 3 ml ONETIME ONE Administration Albuterol/Ipratropium 3 ml 10/26/20 07:40 10/26/20 08:02 Albuterol/Ipratropium 3.0-0.5 Mg/3 Ml Neb Soln NEB 10/26/20 07:41 3 ml ONETIME ONE Administration Ceftriaxone Sodium 2 gm/ 100 mls @ 200 mls/hr 10/26/20 08:43 10/26/20 09:20 Sodium Chloride IV 10/26/20 09:12 200 mls/hr ONETIME ONE Administration Methylprednisolone Sodium Succinate 125 mg 10/26/20 08:40 10/26/20 09:18 Methylprednisolone Sodium Succinate 125 Mg/2 Ml Sdv IVPUSH 10/26/20 08:41 125 mg ONETIME ONE Administration - Radiology Interpretation Free Text/Narrative:: 25-year-old female presents to the ED with a 6-day history of upper respiratory tract infection symptoms. This includes some mild nasal congestion. Sore throat with a combination of postnasal drip and severe paroxysmal productive cough of yellow-green sputum associate with flecks of blood at times. Associated fever chills decreased appetite. Mild diarrhea 2-3 times per day. Patient is tested for Covid weekly and had a rapid Covid last evening in the workplace which was negative. She has a history of asthma and has ran out of her albuterol inhaler. Exam reveals her to be febrile. O2 sats slightly low at 96%. Diffuse audible wheezing throughout all lung barboza with rhonchi in all lung barboza. Plan one view chest x-ray. DuoNeb x2--30 minutes apart. IV is D5 normal saline at open. Given Tylenol 975 mg p.o. for fever relief. Routine labs with blood cultures x2 ordered and a serum lactic acid. - Re-Assessments/Exams Free Text/Narrative Re-Assessment/Exam: 10/26/20 07:30: Potable chest x-ray reveals mildly hyperinflated lung barboza. Cardiac silhouette is normal. She is rotated slightly to the left making the right hilum slightly more prominent than normal. There is no definitive pulmonary infiltrate. Prominent of the vascular appreciated right lower lobe. No pleural effusion no pneumothorax.Hematology reveals a normal white count at 8.55. Differential shows 54.5% neutrophils. Hemoglobin is 12.8 with hematocrit of 40.2 platelet count 330,000 10/26/20 08:38 patient has completed 2 doses of DuoNeb and remains essentially unimproved. She has diffuse rhonchi throughout both lung barboza as if there is a lot of retained secretions that she cannot expectorate. Plan will I will place her on a continuous albuterol inhalational treatment with 7.5 mg of albuterol over 45 minutes to an hour. She will be given Solu-Medrol 125 mg IV. Rocephin 2 g IV as well. 10/26/20 08:46 Sodium is 139 with potassium slightly low at 3.3. Chloride 107 with a bicarb of 23. Anion gap is 12.3. BUN is 9 with a creatinine of 0.8 and a GFR greater than 60. Glucose is 94 with a lactic acid of 0.6. Calcium is 8.8. Magnesium is 2.0. Liver function is normal. C-reactive protein is mildly elevated at 1.8. Total protein 7.5 with an albumin fraction of 3.8. 10/26/20 10:04: On reevaluation the patient is much less febrile. She continues to have a lot of rhonchi coming from the upper airway. Lower airway is now free of wheezing and rhonchi have markedly improved throughout all lung barboza. O2 sats have improved to 97 to 100% on room air she has completed Rocephin 2 g IV and initial dose of steroid Solu-Medrol 125 mg IV. She will be discharged home to use her nebulizer machine with DuoNeb one Nebules every 6 hours as needed for the next 3 to 4 days. Once improved may back off to twice daily. Antibiotic will be doxycycline 100 mg twice daily for the next 9 days. Refilled albuterol metered-dose inhaler 18.5 g 2 puffs every 2-3 hours needed for shortness of breath and/or wheezing. Prednisone 20 mg by mouth twice daily for the next 5 days with breakfast and supper and then 1 tablet in the morning for another 5 days. Continue Motrin 600 mg every 6 hours or Tylenol 650 mg every 4 hours for fever relief. She has for review in 72 hours time if not markedly improved. 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 Departure - Departure Time of Disposition: 10:02 Disposition: Home, Self-Care 01 Condition: Fair Clinical Impression: Acute bronchitis with wheezing, History of asthma - Discharge Information *PRESCRIPTION DRUG MONITORING PROGRAM REVIEWED*: Not Applicable *COPY OF PRESCRIPTION DRUG MONITORING REPORT IN PATIENT NAMRATA: Not Applicable Prescriptions: Albuterol Sulfate [Albuterol Sulfate Hfa] 18 gm IH Q2H PRN #1 hfa.aer.ad PRN Reason: Shortness of breath/ Albuterol/Ipratropium [DuoNeb 3.0-0.5 MG/3 ML] 3 ml .XX Q6H PRN #36 neb PRN Reason: Shortness of breath/wheezing predniSONE [Prednisone] 20 mg PO ASDIRECTED PRN #15 tablet PRN Reason: wheezing/shortness of breath. Doxycycline [Vibra-Tabs] 100 mg PO Q12HR #18 tab Referrals: Rathgeber,Nirav Bryce, MD [Primary Care Provider] - Forms: ED Department Discharge, ED Return to Work/School Form Additional Instructions: Evaluation in the emergency room this morning in regards to acute onset of fever with associated exacerbation of underlying asthma with significant wheezing and shortness of breath. Associated paroxysmal severe cough. You were treated in the emergency room with DuoNeb x2 and then continuous albuterol neb treatments x45 minutes. Chest x-ray done in the ED is negative for any signs of pneumonia. Clinically you have rhonchi in all 5 lobes of your lungs suggesting significant underlying bronchitis. I did refill your albuterol hand had nebulizer or metered-dose inhaler 2 puffs every 2-3 hours as needed for shortness of breath. Suggest home use of nebulizer machine for DuoNeb treatments one Nebules every 6 hours as needed for shortness of breath and wheezing which should improve over the next 72 hours. Prednisone 20 mg twice daily with breakfast and supper for 5 days then once in the morning only for another 5 days. May take first tablet tonight after eating some supper. Antibiotic is to be doxycycline 100 mg twice daily for the next 9 days. First tablet should be started tonight with food. Continue Motrin 600 mg every 6 hours or Tylenol 650 mg every 4 hours as needed for fever relief. If not markedly improved in 72 hours time you should be reviewed. Off work for the next 5 days. Sepsis Event Note (ED) - Evaluation Sepsis Screening Result: No Definite Risk - Focused Exam Vital Signs: Vital Signs Temp Temp Pulse Resp BP Pulse Ox Pulse Ox 10/26/20 08:49 99 10/26/20 08:03 99 10/26/20 07:24 99 10/26/20 07:18 36.8 C 10/26/20 06:44 36.4 C 99 20 130/80 96 - My Orders Last 24 Hours: My Active Orders 10/26/20 07:10 Blood Culture x2 Reflex Set [OM.PC] Stat 10/26/20 07:11 RT Aerosol Therapy [RC] ASDIRECTED 10/26/20 07:15 Dextrose 5%-0.9% NaCl [Dextrose 5%-Normal Saline] 1,000 ml IV ASDIRECTED 10/26/20 07:35 CULTURE BLOOD [BC] Stat 10/26/20 07:43 CULTURE BLOOD [BC] Stat 10/26/20 08:43 RT Aerosol Therapy [RC] ASDIRECTED - Assessment/Plan Last 24 Hours: My Active Orders 10/26/20 07:10 Blood Culture x2 Reflex Set [OM.PC] Stat 10/26/20 07:11 RT Aerosol Therapy [RC] ASDIRECTED 10/26/20 07:15 Dextrose 5%-0.9% NaCl [Dextrose 5%-Normal Saline] 1,000 ml IV ASDIRECTED 10/26/20 07:35 CULTURE BLOOD [BC] Stat 10/26/20 07:43 CULTURE BLOOD [BC] Stat 10/26/20 08:43 RT Aerosol Therapy [RC] ASDIRECTED
[2020-10-26] MEDS ORDERED: Albuterol/Ipratropium 3.0-0.5 MG/3 ML Neb Soln NEB ONE ×2 (07:11→07:40)
[2020-10-26] MEDS ORDERED: Dextrose 5%-0.9% NaCl 1,000 ML IV SCH (07:15)
--- NOTE | 2020-10-26 08:36 | CR ---
Chest: Portable view of the chest was obtained. Comparison: Prior chest x-ray of 07/10/20. Slight scoliosis is noted within the spine. No acute osseous finding is appreciated. Heart size and mediastinum are within normal limits. Lungs are clear with no acute parenchymal change. Impression: 1. Nothing acute is appreciated on portable chest x-ray. Diagnostic code #2
[2020-10-26] MEDS ORDERED: methylPREDNISolone Sodium Succinate 125 MG/2 ML SDV IVPUSH ONE (08:40)
[2020-10-26] MEDS ORDERED: Albuterol 0.5% 2.5 MG/0.5 ML Neb Soln NEB ONE (08:42)
[2020-10-26] MEDS ORDERED: cefTRIAXone 2 GM in Sodium Chloride 0.9% 100 ML IV ONE (08:43)
== END 2020-10-26 10:34 | disposition home or self-care (01) ==
LOC: JD.ED 06:35
DX: J20.9 Acute bronchitis, unspecified (principal); Z91.048 Other nonmedicinal substance allergy status; Z79.899 Other long term (current) drug therapy; Z72.0 Tobacco use
CPT/HCPCS: 36415; 71045; 80053; 83605; 83735; 85025; 86140; 87040; 94640; 96365; 96375; 99284; A9270; J0696; J2930; J7042; J7620-GY

== ENCOUNTER 2021-02-05 01:51 | Emergency (ER) | payer BC, MEDICAID, OTHER ==
--- NOTE | 2021-02-05 02:15 | EDM.PDOC ---
ED HPI GENERAL MEDICAL PROBLEM - General Chief Complaint: ENT Problem Stated Complaint: NOSE COMPLAINT/HEADACHE/FEVER Time Seen by Provider: 02/05/21 02:05 - History of Present Illness INITIAL COMMENTS - FREE TEXT/NARRATIVE: 25-year-old female presents the emergency room with nose pain. Patient states she has had a sore in her nose and she has been picking at it for quite some time. For some reason she cannot stop picking at her nose. This started after she had a dental procedure done a month or 2 ago she was started on antibiotics for this but never completed them. She did a saline nose wash earlier and the scab came out of her nose. She is been having quite a bit of discomfort around her nose. She has felt warm at times but no fevers. Patient denies any possibility of . 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 - Related Data Allergies Allergy/AdvReac Type Severity Reaction Status Date / Time duct tape Allergy Hives Uncoded 10/26/20 06:46 Home Meds: Home Meds Albuterol Sulfate [Albuterol Sulfate Hfa] 2 puff INH ASDIRECTED 07/10/20 [History] norgestimate-ethinyl estradioL [Tri-Linyah Tablet] 1 tab PO DAILY 07/10/20 [History] Zolpidem [Ambien] 1 tab PO BEDTIME 09/07/20 [History] Albuterol Sulfate [Albuterol Sulfate Hfa] 18 gm IH Q2H PRN #1 hfa.aer.ad 10/26/20 [Rx] Albuterol/Ipratropium [DuoNeb 3.0-0.5 MG/3 ML] 3 ml .XX Q6H PRN #36 neb 10/26/20 [Rx] Amitriptyline [Elavil] 100 mg PO DAILY PRN 10/26/20 [History] Doxycycline [Vibra-Tabs] 100 mg PO Q12HR #18 tab 10/26/20 [Rx] predniSONE [Prednisone] 20 mg PO ASDIRECTED #15 tablet 10/27/20 [Rx] Clindamycin HCl 300 mg PO TID #30 capsule 02/05/21 [Rx] Past Medical History - Past Health History Medical/Surgical History: Denies Medical/Surgical History HEENT History: Reports: Impaired Vision Cardiovascular History: Reports: None Respiratory History: Reports: Asthma, Bronchitis, Recurrent, Pneumonia, Recurrent Gastrointestinal History: Reports: Chronic Diarrhea, GERD, Irritable Bowel Syndrome Genitourinary History: Reports: None [employer]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: Musculoskeletal History: Reports: None Neurological History: Reports: Head Trauma, Migraines Psychiatric History: Reports: Anxiety Endocrine/Metabolic History: Reports: None Hematologic History: Reports: None Immunologic History: Reports: None Oncologic (Cancer) History: Reports: None Dermatologic History: Reports: None - Infectious Disease History Infectious Disease History: Reports: Chicken Pox, Shingles - Past Surgical History HEENT Surgical History: Reports: Adenoidectomy, Oral Surgery, Tonsillectomy Social & Family History - Family History Family Medical History: No Pertinent Family History Respiratory: Reports: Asthma Endocrine/Metabolic: Reports: Hypothyroidism - Tobacco Use Tobacco Use Status *Q: Current Every Day Tobacco User Years of Tobacco use: 10 Packs/Tins Daily: 0.5 - Caffeine Use Caffeine Use: Reports: Coffee, Energy Drinks, Soda, Tea - Alcohol Use Days Per Week of Alcohol Use: 3 Number of Drinks Per Day: 5 Total Drinks Per Week: 15 Date of Last Drink: 02/04/21 Time of Last Drink: 18:00 - Recreational Drug Use Recreational Drug Use: No Drug Use in Last 12 Months: No - Living Situation & Occupation Living situation: Reports: Single, Alone 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 Denies: Fever, Chills HEENT: Reports: Other (See history of present illness). Denies: No Symptoms Respiratory: Reports: No Symptoms Cardiovascular: Reports: No Symptoms Endocrine: Reports: No Symptoms GI/Abdominal: Reports: No Symptoms : Reports: No Symptoms Musculoskeletal: Reports: No Symptoms Skin: Reports: No Symptoms Neurological: Reports: No Symptoms ED EXAM, GENERAL - Physical Exam Exam: See Below Exam Limited By: No Limitations General Appearance: Alert, No Apparent Distress Eye Exam: Bilateral Eye: Normal Inspection Ears: Normal External Exam, Normal Canal, Hearing Grossly Normal, Normal TMs Nose: Other (Normal external inspection internally she has a hole through the nasal septum) Head: Atraumatic, Normocephalic Neck: Normal Inspection, Supple, Non-Tender, Full Range of Motion Respiratory/Chest: No Respiratory Distress, Lungs Clear, Normal Breath Sounds Cardiovascular: Regular Rate, Rhythm, No Edema, No Murmur Course - Vital Signs Last Recorded V/S: Last Vital Signs Temp 35.8 C L 02/05/21 02:02 Pulse 105 H 02/05/21 02:02 Resp 16 02/05/21 02:02 BP 132/79 02/05/21 02:02 Pulse Ox 100 02/05/21 02:02 - Re-Assessments/Exams Free Text/Narrative Re-Assessment/Exam: 02/05/21 02:34 Patient is a little tachycardic she seems a little anxious I cannot exclude a stimulant on board but think this is less likely. For the problem and hand the patient's can need to follow-up with an hearing aid repairer. I will start her on clindamycin 300 mg 3 times a day for 10 days. Departure - Departure Time of Disposition: 02:34 Disposition: Home, Self-Care 01 Clinical Impression: Nose irritation, Nasal septal erosion - Discharge Information Referrals: Nirav Kendrick MD [Primary Care Provider] - Additional Instructions: Return to the emergency room with any questions problems or worsening symptoms. You must see an hearing aid repairer the closest ones are in [place]. Get this done as soon as you can. You have been started on clindamycin, this is an antibiotic take it 3 times a day as directed until all gone. This prescription has been sent electronically to [facility] by [facility]. Stop picking your nose! Sepsis Event Note (ED) - Evaluation Sepsis Screening Result: No Definite Risk - Focused Exam Vital Signs: Vital Signs Temp Pulse Resp BP Pulse Ox 02/05/21 02:02 35.8 C L 105 H 16 132/79 100
[2021-02-05] MEDS ORDERED: Amoxicillin 500 MG Cap PO ONE (02:24)
[2021-02-05] MEDS ORDERED: Clindamycin HCl 150 MG Cap PO ONE (02:26)
== END 2021-02-05 02:55 | disposition home or self-care (01) ==
LOC: JD.ED 01:51
DX: J34.89 Other specified disorders of nose and nasal sinuses (principal); J45.909 Unspecified asthma, uncomplicated; Z72.0 Tobacco use; Z91.048 Other nonmedicinal substance allergy status; Z79.899 Other long term (current) drug therapy
CPT/HCPCS: 99283; A9270; 99282

== ENCOUNTER 2021-02-25 17:13 | Emergency (ER) | payer MEDICAID ==
[2021-02-25] MEDS ORDERED: Ketorolac 60 MG/2 ML SDV IM ONE (19:37)
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
--- NOTE | 2021-02-25 19:53 | CR ---
Left elbow: 4 views of the left elbow were obtained. Comparison: No prior elbow study is available. No joint effusion is seen. Joint spaces are preserved. No acute fracture, dislocation or other bony abnormality is appreciated. No abnormal soft tissue calcifications are noted. Impression: 1. Nothing acute is appreciated on left elbow study. Diagnostic code #1
--- NOTE | 2021-02-25 19:53 | CR ---
Right wrist: 4 views of the right wrist were obtained. Comparison: Prior right wrist exam of 05/31/19. Joint spaces are preserved. No fracture, dislocation or other bony abnormality is appreciated. Impression: 1. Nothing acute is seen on right wrist exam. Diagnostic code #1
== END 2021-02-25 19:53 | disposition home or self-care (01) ==
LOC: JD.ED 17:13
DX: M25.531 Pain in right wrist (principal); M25.522 Pain in left elbow; Z91.09 Other allergy status, other than to drugs and biological substances; Z72.0 Tobacco use
CPT/HCPCS: 29125; 73080; 73110; 96372; 99283; J1885

== ENCOUNTER 2021-03-04 20:13 | Emergency (ER) | payer OTHER, MEDICAID ==
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
--- NOTE | 2021-03-05 08:28 | CR ---
Left forearm: 2 views of the left forearm were obtained. Comparison: No prior left forearm study is available. No acute fracture, dislocation or other bony abnormality is appreciated. Impression: 1. Nothing acute is seen on 2 view left forearm study. Diagnostic code #1
--- NOTE | 2021-03-05 08:29 | CR ---
Left hand: 2 views of the left hand were obtained. Comparison: No prior hand exam is available. Joint spaces are preserved. No fracture, dislocation or other bony abnormality is appreciated. Impression: 1. Nothing acute is appreciated on 2 view left hand exam. Diagnostic code #1
--- NOTE | 2021-03-05 08:29 | CR ---
Left ankle: 3 views of the left ankle were obtained. Comparison: No prior left ankle study is available. Ankle mortise is symmetric. No acute fracture, dislocation or other bony abnormality is appreciated. Impression: 1. Nothing acute is seen on left ankle study. Diagnostic code #1
--- NOTE | 2021-03-05 08:31 | CR ---
Chest: Single frontal view of the chest was obtained. Comparison: Prior chest x-ray of 07/10/20. Heart size and mediastinum are normal. Lungs are clear with no acute parenchymal change being seen. Minimal scoliosis is noted within the spine. No acute osseous abnormality is appreciated Impression: 1. Nothing acute is appreciated on single view of the chest. Diagnostic code #1
--- NOTE | 2021-03-05 08:31 | CR ---
Left femur: AP and lateral views of the left femur were obtained. Comparison: No prior left femur study is available. No acute fracture or other abnormality is appreciated. Impression: 1. Nothing acute is appreciated on 2 view left femur study. Diagnostic code #1
--- NOTE | 2021-03-05 08:32 | CT ---
CT cervical spine Technique: Multiple axial sections were obtained from above C1 inferiorly to the top of T3. Reconstructed coronal and sagittal images were obtained. Comparison: No prior cervical spine imaging is available. Findings: Vertebral body heights and disc spaces are maintained. Minimal sclerotic area is seen within the left side of C1 which is believed to represent a bone island. No central canal stenosis or neural foraminal stenosis is seen. No acute fracture or subluxation is seen. Impression: 1. Small bone island as an incidental note. 2. No acute abnormality is appreciated on CT study of the cervical spine. Diagnostic code #2 I agree with preliminary report from [facility], finalized on 03/04/21, 11:25 PM CDT, code 1
--- NOTE | 2021-03-05 08:33 | CT ---
Head CT Technique: Multiple axial sections through the brain were obtained. Intravenous contrast was not utilized. Reconstructed coronal and sagittal images were obtained. Comparison: Prior head CT study of 10/17/20. Findings: Ventricles along with basal cisterns and sulci over the convexities are within normal limits for the patient's age. No abnormal parenchymal densities are seen. No evidence of intracranial hemorrhage. No midline shift or mass-effect is seen. Bone window settings were reviewed. Visualized paranasal sinuses and mastoid sinuses show nothing acute. No acute calvarial abnormality is appreciated. Impression: 1. Nothing acute is seen on noncontrast head CT study. 2. No change from previous head CT study is seen. Diagnostic code #1 I agree with preliminary report from [facility], finalized on 03/04/21, 11:27 PM CDT, code 1
== END 2021-03-04 22:50 | disposition home or self-care (01) ==
LOC: JD.ED 20:13
DX: S13.4XXA Sprain of ligaments of cervical spine, initial encounter (principal); S93.402A Sprain of unspecified ligament of left ankle, initial encounter; S96.912A Strain of unspecified muscle and tendon at ankle and foot level, left foot, initial encounter; S00.03XA Contusion of scalp, initial encounter; S60.222A Contusion of left hand, initial encounter; S50.12XA Contusion of left forearm, initial encounter; S70.02XA Contusion of left hip, initial encounter; M79.652 Pain in left thigh; R07.81 Pleurodynia; J45.909 Unspecified asthma, uncomplicated; Z72.0 Tobacco use; Z91.048 Other nonmedicinal substance allergy status; Z79.899 Other long term (current) drug therapy; V89.2XXA Person injured in unspecified motor-vehicle accident, traffic, initial encounter
CPT/HCPCS: 70450; 70450-26; 71045; 71045-26; 72125; 72125-26; 73090-26-LT; 73090-LT; 73120-26-LT; 73120-LT; 73552-26-LT; 73552-LT; 73610-26-LT; 73610-LT; 99283; 99284-25

== ENCOUNTER 2021-06-22 20:40 | Emergency (ER) | payer MEDICAID ==
--- NOTE | 2021-06-22 23:04 | EDM.PDOC ---
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 Patient reports that she was seen in clinic earlier today and had an ultrasound done. Patient states yesterday she noticed some slight spotting today she has had a few drops in her underwear. Otherwise, she is denying any pelvic pain or abdominal pain. Patient has the ultrasound report with her that shows gestational sac is approximately 1.2 cm but there is no evidence of pole. No evidence of ectopic . Ovaries are normal. She did have the blood work done today. She states she otherwise feels fine. She wants to see a new primary care physician as she feels that this point is not helping her. She had an ultrasound done on June 12 which showed very similar ultrasound results. Again, she has these pulled up on her phone discharge report. - Related Data Allergies Allergy/AdvReac Type Severity Reaction Status Date / Time duct tape Allergy Severe Hives Uncoded 06/22/21 21:22 Home Meds: Home Meds #103/Iron Fumarate/Fa [ ] 1 tab PO DAILY 06/22/21 [History] Past Medical History - Past Health History Medical/Surgical History: Denies Medical/Surgical History HEENT History: Reports: Impaired Vision Other HEENT History: MRSA infection in the nose 12/2020 Cardiovascular History: Reports: None Respiratory History: Reports: Asthma, Bronchitis, Recurrent, Pneumonia, Recurrent Gastrointestinal History: Reports: Chronic Diarrhea, GERD, Irritable Bowel Syndrome Genitourinary History: Reports: None THEATRICAL SCENIC DESIGNER History: Reports: Other THEATRICAL SCENIC DESIGNER History: Pt reports "no chance of today" Musculoskeletal History: Reports: None Neurological History: Reports: None, Head Trauma, Migraines Psychiatric History: Reports: Anxiety Endocrine/Metabolic History: Reports: None Hematologic History: Reports: None Immunologic History: Reports: None, Other (See Below) Other Immunologic History: MRSA of the nose 12/2020 Oncologic (Cancer) History: Reports: None Dermatologic History: Reports: None - Infectious Disease History Infectious Disease History: Reports: Chicken Pox, MRSA, Shingles - Past Surgical History Head Surgeries/Procedures: Reports: None HEENT Surgical History: Reports: Adenoidectomy, Oral Surgery, Tonsillectomy Social & Family History - Family History Family Medical History: No Pertinent Family History Respiratory: Reports: Asthma Endocrine/Metabolic: Reports: Hypothyroidism - Tobacco Use Tobacco Use Status *Q: Current Every Day Tobacco User Years of Tobacco use: 12 Packs/Tins Daily: 0.5 - Caffeine Use Caffeine Use: Reports: Coffee, Soda Caffeine Use Comment: 2 per day - Recreational Drug Use Recreational Drug Use: No - Living Situation & Occupation Living situation: Reports: Single, Alone 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) ED ROS GENERAL - Review of Systems Review Of Systems: See Below Free Text/Narrative/Comment: In addition to that documented in the HPI above, the additional ROS was obtained: Constitutional: Denies fevers or chills Eyes: Denies vision changes ENMT: Denies sore throat CV: Denies chest pain Resp: Denies SOB GI: Denies vomiting or diarrhea : Denies painful urination MSK: Denies recent trauma Skin: Denies new rashes Neuro: Denies new numbness or tingling or weakness Endocrine: Denies unexpected weight loss Heme: Denies bleeding disorders ED EXAM - Physical Exam Exam: See Below Text/Narrative:: I have reviewed the triage vital signs Const: Well nourished, well developed, appears stated age Eyes: Tearful, no conjunctival injection HENT: No signs of trauma or swelling, Neck supple without meningismus CV: Regular Rate Rhythm, Warm, well-perfused extremities RESP: Unlabored respiratory effort MSK: No gross deformities appreciated Skin: Warm, dry. No rashes Neuro: Alert, worm picker II-XII grossly intact. Sensation and motor function of extremities grossly intact. Psych: Appropriate mood and affect. Course - Vital Signs Last Recorded V/S: Last Vital Signs Temp 36.6 C 06/22/21 21:19 Pulse 104 H 06/22/21 21:19 Resp 16 06/22/21 21:19 BP 123/73 06/22/21 21:19 Pulse Ox 99 06/22/21 21:19 - Orders/Labs/Meds Orders: Active Orders 24 hr Category Date Time Status OB Ltd 1 or More Fetus [US] Stat Exams 06/22/21 21:24 Stop Req PATIENT RETYPE [BBK] Routine Lab 06/22/21 22:56 Ordered Labs: Laboratory Tests 06/22/21 06/22/21 06/22/21 Range/Units 21:50 21:50 21:50 WBC 6.45 (3.98-10.04) K/mm3 RBC 4.54 (3.98-5.22) M/mm3 Hgb 11.5 (11.2-15.7) gm/dl Hct 37.7 (34.1-44.9) % MCV 83.0 D (79.4-94.8) fl MCH 25.3 L (25.6-32.2) pg MCHC 30.5 L (32.2-35.5) g/dl RDW Std Deviation 47.5 H (36.4-46.3) fL Plt Count 381 H (182-369) K/mm3 MPV 8.9 L (9.4-12.3) fl Neut % (Auto) 54.0 (34.0-71.1) % Lymph % (Auto) 33.2 (19.3-51.7) % [place] % (Auto) 8.2 (4.7-12.5) % Eos % (Auto) 3.9 (0.7-5.8) Baso % (Auto) 0.5 (0.1-1.2) % Neut # (Auto) 3.49 (1.56-6.13) K/mm3 Lymph # (Auto) 2.14 (1.18-3.74) K/mm3 [place] # (Auto) 0.53 H (0.24-0.36) K/mm3 Eos # (Auto) 0.25 (0.04-0.36) K/mm3 Baso # (Auto) 0.03 (0.01-0.08) K/mm3 Sodium 146 H (136-145) mEq/L Potassium 3.6 (3.5-5.1) mEq/L Chloride 112 H (98-107) mEq/L Carbon Dioxide 23 (21-32) mEq/L Anion Gap 14.6 (5-15) BUN 9 (7-18) mg/dL Creatinine 0.7 (0.55-1.02) mg/dL Est Cr Clr Drug Dosing 119.47 mL/min Estimated GFR (MDRD) > 60 (>60) mL/min BUN/Creatinine Ratio 12.9 L (14-18) Glucose 95 (70-99) mg/dL Calcium 8.7 (8.5-10.1) mg/dL Total Bilirubin 0.2 (0.2-1.0) mg/dL AST 25 (15-37) U/L ALT 65 H (14-59) U/L Alkaline Phosphatase 102 (46-116) U/L Total Protein 6.4 (6.4-8.2) g/dl Albumin 3.4 (3.4-5.0) g/dl Globulin 3.0 gm/dL Albumin/Globulin Ratio 1.1 (1-2) HCG, Quant 9836.0 mIU/mL Blood Type Gel Antibody Screen 06/22/21 Range/Units 21:50 WBC (3.98-10.04) K/mm3 RBC (3.98-5.22) M/mm3 Hgb (11.2-15.7) gm/dl Hct (34.1-44.9) % MCV (79.4-94.8) fl MCH (25.6-32.2) pg MCHC (32.2-35.5) g/dl RDW Std Deviation (36.4-46.3) fL Plt Count (182-369) K/mm3 MPV (9.4-12.3) fl Neut % (Auto) (34.0-71.1) % Lymph % (Auto) (19.3-51.7) % [place] % (Auto) (4.7-12.5) % Eos % (Auto) (0.7-5.8) Baso % (Auto) (0.1-1.2) % Neut # (Auto) (1.56-6.13) K/mm3 Lymph # (Auto) (1.18-3.74) K/mm3 [place] # (Auto) (0.24-0.36) K/mm3 Eos # (Auto) (0.04-0.36) K/mm3 Baso # (Auto) (0.01-0.08) K/mm3 Sodium (136-145) mEq/L Potassium (3.5-5.1) mEq/L Chloride (98-107) mEq/L Carbon Dioxide (21-32) mEq/L Anion Gap (5-15) BUN (7-18) mg/dL Creatinine (0.55-1.02) mg/dL Est Cr Clr Drug Dosing mL/min Estimated GFR (MDRD) (>60) mL/min BUN/Creatinine Ratio (14-18) Glucose (70-99) mg/dL Calcium (8.5-10.1) mg/dL Total Bilirubin (0.2-1.0) mg/dL AST (15-37) U/L ALT (14-59) U/L Alkaline Phosphatase (46-116) U/L Total Protein (6.4-8.2) g/dl Albumin (3.4-5.0) g/dl Globulin gm/dL Albumin/Globulin Ratio (1-2) HCG, Quant mIU/mL Blood Type O POSITIVE Gel Antibody Screen Negative Departure - Departure Time of Disposition: 23:03 Disposition: Home, Self-Care 01 Clinical Impression: Vaginal bleeding during - Discharge Information Instructions: Subchorionic Hematoma Referrals: Jaimie Thao NP [Primary Care Provider] - Forms: ED Department Discharge, ED Return to Work/School Form Additional Instructions: Please follow-up with your primary care physician or THEATRICAL SCENIC DESIGNER in 1 week for repeat studies. Sepsis Event Note (ED) - Evaluation Sepsis Screening Result: No Definite Risk - Focused Exam Vital Signs: Vital Signs Temp Pulse Resp BP Pulse Ox 06/22/21 21:19 36.6 C 104 H 16 123/73 99 - My Orders Last 24 Hours: My Active Orders 06/22/21 21:24 OB Ltd 1 or More Fetus [US] Stat 06/22/21 22:56 PATIENT RETYPE [BBK] Routine - Assessment/Plan Last 24 Hours: My Active Orders 06/22/21 21:24 OB Ltd 1 or More Fetus [US] Stat 06/22/21 22:56 PATIENT RETYPE [BBK] Routine Assessment:: Patient is a 25-year-old female presenting with vaginal bleeding. Patient is hemodynamically stable in the emergency room. Differential diagnosis considered for this patient includes miscarriage versus versus spotting during early . Laboratory studies demonstrate a hCG level of 9800. She states her only other hCG levels very beginning of and was demonstrating a level of 123. At this point, no indication for emergent ultrasound is no evidence of ectopic based on previous ultrasound today. This is likely a nonviable given her ultrasound results. At this point, I will recommend outpatient follow-up. No indication for RhoGam. Patient discharged stable condition. Return precautions discussed as usual.
== END 2021-06-23 00:19 | disposition home or self-care (01) ==
LOC: JD.ED 20:40
DX: O20.9 Hemorrhage in early pregnancy, unspecified (principal); Z91.048 Other nonmedicinal substance allergy status; Z72.0 Tobacco use; Z3A.01 Less than 8 weeks gestation of pregnancy
CPT/HCPCS: 36415; 80053; 84702; 85025; 86850; 86900; 86901; 99284

== ENCOUNTER 2021-06-26 16:24 | Emergency (ER) | payer MEDICAID ==
[2021-06-26] MEDS ORDERED: Sodium Chloride 0.9% 1,000 ML IV SCH (17:55)
[2021-06-26] MEDS ORDERED: HYDROmorphone 0.5 MG/0.5 ML Syringe IVPUSH ONE (17:57)
[2021-06-26] MEDS ORDERED: Metoclopramide 10 MG/2 ML SDV IVPUSH ONE (17:58)
[2021-06-26] MEDS ORDERED: Dextrose 5%-0.9% NaCl 1,000 ML IV SCH (18:00)
[2021-06-26] MEDS ORDERED: LORazepam 2 MG/ML SDV IVPUSH ONE (18:04)
--- NOTE | 2021-06-26 18:05 | EDM.PDOC ---
ED HPI GENERAL MEDICAL PROBLEM <Naga Moncada Beni - Last Filed: 06/27/21 00:08> - General Source of Information: Reports: Patient, Family (mother) History Limitations: Reports: No Limitations - History of Present Illness Onset: Other (Lower abdominal cramping pain off and on since June 22. Heavy bleeding per vagina started around 0300 hrs. this morning.) Onset Date: 06/26/21 (Heavy vaginal bleeding started around 0300 hrs. this morning) Onset Time: 03:00 Duration: Hour(s):, Heavy, Intermittent (Intermittent lower abdominal cramping pain off and on since June 22) Location: Reports: Other (Heavy bleeding per vagina with associated lower abdominal menstrual cramping pain) Quality: Reports: Sharp (Julio strong lower abdominal cramping pain combined with menstrual cramping.), Stabbing, Other Severity: Severe (8 of the 10) Improves with: Reports: None Worsens with: Reports: Other (Worsens intermittently with passage of clots) Context: Denies: Activity, Exercise, Lifting, Sick Contact, Trauma, Other Associated Symptoms: Reports: Loss of Appetite, Malaise (Nausea without vomiting), Nausea/Vomiting, Weakness. 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 The history suggest that she has had lower abdominal cramping pain and known since June 22. She is 3 para 1 with the first ending in miscarriage as well. She did not require any intervention for this miscarriage. She has apparently been cramping quite badly with heavy vaginal bleeding soaking a pad per hour pretty well since 0300 hrs. this morning. It is estimated that she is approximately 6 weeks at this time. Patient was very pallid in appearance but had resumed consciousness when she was moved to the [facility]. She admits that she is passing large clots up to $0.50 piece size with associated heavy bleeding. She just got off the toilet in the bathroom outside the waiting room before she passed out. Apparently she has not noted any passage of tissue. She did not fall or get hurt. Mother is here as well and was helping her out of the bathroom. Patient is quite pallid and diaphoretic on initial evaluation. He is alert oriented answering questions appropriately. Upon reading Dr. Mukherjee note from the evening of June 22 he indicates that she had some spotting per vagina and this was the reason for coming to the ED. Patient reported that she had been seen in the clinic earlier in the day and had an ultrasound done. She indicated that she had started spotting the day prior few drops in her underwear. The ultrasound report is with the patient at that time and showed a gestational sac approximately 1.2 cm but there was no evidence of a pole. No evidence of ectopic . Ovaries were normal. Patient apparently had an ultrasound done June 12 which showed very similar ultrasound results. Lab work done at that time revealed a normal white count and normal differential. Hemoglobin was 11.5 with hematocrit of 37.7. Platelet count was 381,000. Her quantitative hCG was 9836 at that time. Chemistry was normal blood type was found to be O+ with gel antibody screen being negative. (Jony Rothman) - Related Data Allergies Allergy/AdvReac Type Severity Reaction Status Date / Time duct tape Allergy Severe Hives Uncoded 06/26/21 18:03 Home Meds: Home Meds #103/Iron Fumarate/Fa [ ] 1 tab PO DAILY 06/22/21 [History] Past Medical History - Past Health History Medical/Surgical History: Denies Medical/Surgical History HEENT History: Reports: Impaired Vision Other HEENT History: MRSA infection in the nose 12/2020 Cardiovascular History: Reports: None Respiratory History: Reports: Asthma, Bronchitis, Recurrent, Pneumonia, Recurrent Gastrointestinal History: Reports: Chronic Diarrhea, GERD, Irritable Bowel Syndrome Genitourinary History: Reports: None CIVIL RIGHTS REPRESENTATIVE History: Reports: Other CIVIL RIGHTS REPRESENTATIVE History: Pt reports "no chance of today" Musculoskeletal History: Reports: None Neurological History: Reports: None, Head Trauma, Migraines Psychiatric History: Reports: Anxiety Endocrine/Metabolic History: Reports: None Hematologic History: Reports: None Immunologic History: Reports: None, Other (See Below) Other Immunologic History: MRSA of the nose 12/2020 Oncologic (Cancer) History: Reports: None Dermatologic History: Reports: None - Infectious Disease History Infectious Disease History: Reports: Chicken Pox, MRSA, Shingles - Past Surgical History Head Surgeries/Procedures: Reports: None HEENT Surgical History: Reports: Adenoidectomy, Oral Surgery, Tonsillectomy <Jony Rothman Last Filed: 06/29/21 07:14> Social & Family History - Family History Family Medical History: No Pertinent Family History Respiratory: Reports: Asthma Endocrine/Metabolic: Reports: Hypothyroidism - Caffeine Use Caffeine Use: Reports: Coffee, Soda Caffeine Use Comment: 2 per day - Living Situation & Occupation Living situation: Reports: Single, Alone 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 Denies: Fever, Chills, Night Sweats, Weight Loss, Weight Gain HEENT: Reports: No Symptoms Respiratory: Reports: No Symptoms Cardiovascular: Reports: No Symptoms Endocrine: Reports: Fatigue GI/Abdominal: Reports: Abdominal Pain (Diffuse lower suprapubic abdominal pain combined with menstrual cramping pain. Pain radiates into her lower back) : Reports: Other (Heavy bleeding per vagina since 0300 hrs. this morning estimated to soak a pad at least every hour to 2 hours.). Denies: Dysuria, Flank Pain, Frequency, Hematuria, Incontinence Musculoskeletal: Reports: Other (Associated mild low back pain) Skin: Reports: Pallor, Diaphoresis Neurological: Reports: Syncope (Syncopal event while in the waiting room after getting off the toilet where she had passed a good deal of blood per vagina). Denies: Confusion, Dizziness Psychiatric: Reports: Anxiety Hematologic/Lymphatic: Reports: No Symptoms Immunologic: Reports: No Symptoms <Jony Rothman Filed: 06/29/21 07:14> ED EXAM - Physical Exam Exam: See Below Exam Limited By: No Limitations General Appearance: Alert, WD/WN, Anxious, Moderate Distress, Other (Quite pallid and obviously diaphoretic vital signs show temperature 36.0. Heart rate 98 and sinus respiratory of 18 with O2 sats 100% room air. Initial BP was 87/67.) Eye Exam: Bilateral Eye: Normal Inspection (Mild blepharal pallor), PERRL Throat/Mouth: Normal Inspection, Normal Lips, Normal Voice Head: Atraumatic, Normocephalic Neck: Normal Inspection, Supple, Non-Tender, Full Range of Motion. No: Lymphadenopathy (L), Lymphadenopathy (R) Respiratory/Chest: No Respiratory Distress, Lungs Clear, Normal Breath Sounds, No Accessory Muscle Use, Chest Non-Tender Cardiovascular: Normal Peripheral Pulses, Regular Rate, Rhythm, No Edema, No Gallop, No JVD, No Rub GI/Abdominal Exam: Soft, No Organomegaly, No Distention, No Abnormal Bruit, Tender (Nahid suprapubically). No: Distended, Guarding, Rigid (Female) Exam: Other (The uterine fundus is nonpalpable abdominally.) Heart Tones: Not [place] Extremities: Normal Inspection, Normal Range of Motion, Non-Tender, No Pedal Edema Neurological: Alert, Oriented, CN II-XII Intact, Normal Cognition, No Motor/Sensory Deficits. No: Normal Gait Psychiatric: Anxious, Tearful Skin Exam: Cool, Diaphoretic, Pallor <Jony Rothman - Last Filed: 06/29/21 07:14> Course <Jony Rothman - Last Filed: 06/29/21 07:14> - Vital Signs Last Recorded V/S: Last Vital Signs Temp 36.0 C L 06/26/21 17:54 Pulse 98 06/26/21 17:54 Resp 18 06/26/21 17:54 BP 87/67 L 06/26/21 17:54 Pulse Ox 100 06/26/21 17:54 - Orders/Labs/Meds Labs: Laboratory Tests 06/26/21 06/26/21 06/26/21 Range/Units 17:55 17:55 17:55 WBC 12.49 H (3.98-10.04) K/mm3 RBC 4.03 (3.98-5.22) M/mm3 Hgb 10.2 L (11.2-15.7) gm/dl Hct 32.6 L (34.1-44.9) % MCV 80.9 (79.4-94.8) fl MCH 25.3 L (25.6-32.2) pg MCHC 31.3 L (32.2-35.5) g/dl RDW Std Deviation 44.2 (36.4-46.3) fL Plt Count 425 H (182-369) K/mm3 MPV 9.4 (9.4-12.3) fl Neut % (Auto) 59.3 (34.0-71.1) % Lymph % (Auto) 30.6 (19.3-51.7) % [place] % (Auto) 6.9 (4.7-12.5) % Eos % (Auto) 2.6 (0.7-5.8) Baso % (Auto) 0.4 (0.1-1.2) % Neut # (Auto) 7.41 H (1.56-6.13) K/mm3 Lymph # (Auto) 3.82 H (1.18-3.74) K/mm3 [place] # (Auto) 0.86 H (0.24-0.36) K/mm3 Eos # (Auto) 0.33 (0.04-0.36) K/mm3 Baso # (Auto) 0.05 (0.01-0.08) K/mm3 PT 10.1 (9.7-12.0) SECONDS INR < 0.93 APTT 21.4 L (21.7-31.4) SECONDS Sodium 139 (136-145) mEq/L Potassium 3.8 (3.5-5.1) mEq/L Chloride 105 (98-107) mEq/L Carbon Dioxide 20 L (21-32) mEq/L Anion Gap 17.8 H (5-15) BUN 11 (7-18) mg/dL Creatinine 0.7 (0.55-1.02) mg/dL Est Cr Clr Drug Dosing 119.47 mL/min Estimated GFR (MDRD) > 60 (>60) mL/min BUN/Creatinine Ratio 15.7 (14-18) Glucose 107 H (70-99) mg/dL Calcium 8.3 L (8.5-10.1) mg/dL Total Bilirubin 0.2 (0.2-1.0) mg/dL AST 24 (15-37) U/L ALT 50 (14-59) U/L Alkaline Phosphatase 97 (46-116) U/L Total Protein 6.3 L (6.4-8.2) g/dl Albumin 3.4 (3.4-5.0) g/dl Globulin 2.9 gm/dL Albumin/Globulin Ratio 1.2 (1-2) HCG, Quant 4648.0 mIU/mL Blood Type Gel Antibody Screen 06/26/21 Range/Units 17:55 WBC (3.98-10.04) K/mm3 RBC (3.98-5.22) M/mm3 Hgb (11.2-15.7) gm/dl Hct (34.1-44.9) % MCV (79.4-94.8) fl MCH (25.6-32.2) pg MCHC (32.2-35.5) g/dl RDW Std Deviation (36.4-46.3) fL Plt Count (182-369) K/mm3 MPV (9.4-12.3) fl Neut % (Auto) (34.0-71.1) % Lymph % (Auto) (19.3-51.7) % [place] % (Auto) (4.7-12.5) % Eos % (Auto) (0.7-5.8) Baso % (Auto) (0.1-1.2) % Neut # (Auto) (1.56-6.13) K/mm3 Lymph # (Auto) (1.18-3.74) K/mm3 [place] # (Auto) (0.24-0.36) K/mm3 Eos # (Auto) (0.04-0.36) K/mm3 Baso # (Auto) (0.01-0.08) K/mm3 PT (9.7-12.0) SECONDS INR APTT (21.7-31.4) SECONDS Sodium (136-145) mEq/L Potassium (3.5-5.1) mEq/L Chloride (98-107) mEq/L Carbon Dioxide (21-32) mEq/L Anion Gap (5-15) BUN (7-18) mg/dL Creatinine (0.55-1.02) mg/dL Est Cr Clr Drug Dosing mL/min Estimated GFR (MDRD) (>60) mL/min BUN/Creatinine Ratio (14-18) Glucose (70-99) mg/dL Calcium (8.5-10.1) mg/dL Total Bilirubin (0.2-1.0) mg/dL AST (15-37) U/L ALT (14-59) U/L Alkaline Phosphatase (46-116) U/L Total Protein (6.4-8.2) g/dl Albumin (3.4-5.0) g/dl Globulin gm/dL Albumin/Globulin Ratio (1-2) HCG, Quant mIU/mL Blood Type O POSITIVE Gel Antibody Screen Negative Meds: Medications Discontinued Medications Generic Name Dose Route Start Last Admin Trade Name Freq PRN Reason Stop Dose Admin Hydromorphone HCl 0.5 mg 06/26/21 17:57 06/26/21 18:17 Hydromorphone 0.5 Mg/0.5 Ml Syringe IVPUSH 06/26/21 17:58 0.5 mg ONETIME ONE Administration Hydromorphone HCl 0.5 mg 06/26/21 20:02 06/26/21 23:59 Hydromorphone 0.5 Mg/0.5 Ml Syringe IVPUSH 0.5 mg Q2H PRN Administration abdominal cramping pain. Dextrose/Sodium Chloride 1,000 mls @ 999 mls/hr 06/26/21 18:00 Dextrose 5%-Normal Saline IV ASDIRECTED DIANE Sodium Chloride 1,000 mls @ 999 mls/hr 06/26/21 17:55 06/26/21 18:16 Normal Saline IV 999 mls/hr ASDIRECTED DIANE Administration Dextrose/Lactated Ringer's 1,000 mls @ 999 mls/hr 06/26/21 19:45 06/26/21 20:19 Dextrose 5%-Lactated Ringers IV 999 mls/hr ASDIRECTED DIANE Administration Lorazepam 0.5 mg 06/26/21 18:04 06/26/21 18:18 Lorazepam 2 Mg/Ml Sdv IVPUSH 06/26/21 18:05 0.5 mg ONETIME ONE Administration Metoclopramide HCl 7.5 mg 06/26/21 17:58 06/26/21 18:16 Metoclopramide 10 Mg/2 Ml Sdv IVPUSH 06/26/21 17:59 7.5 mg ONETIME ONE Administration Misoprostol 400 mcg 06/26/21 20:00 Misoprostol 100 Mcg Tab PO 06/26/21 20:01 ASDIRECTED ONE Misoprostol Confirm 06/26/21 20:15 06/26/21 20:17 Misoprostol 200 Mcg Tab Administered 06/26/21 20:16 Not Given Dose 400 mcg .ROUTE .STK-MED ONE Misoprostol 200 mcg 06/26/21 20:16 Misoprostol 200 Mcg Tab PO 06/26/21 20:17 STAT ONE Misoprostol 400 mcg 06/26/21 20:16 06/26/21 20:20 Misoprostol 200 Mcg Tab PO 06/26/21 20:17 400 mcg STAT ONE Administration Misoprostol 400 mcg 06/26/21 23:44 06/26/21 23:55 Misoprostol 200 Mcg Tab PO 06/26/21 23:45 400 mcg ONETIME ONE Administration Ondansetron HCl 4 mg 06/26/21 20:01 06/27/21 00:16 Ondansetron 4 Mg/2 Ml Sdv IVPUSH 06/26/21 20:02 Not Given ONETIME ONE - Radiology Interpretation Free Text/Narrative:: 25-year-old female presents to the ED with spotting per vagina off-and-on since June 21. She was evaluated both in clinic and in the ED on June 22 having had an ultrasound in the clinic which showed a gestational sac with no pole but was felt to be fairly early. The patient is felt to be between 5 and 6 weeks gestation. Subsequently over the weekend she has had increased spotting per vagina and in fact started flowing fairly heavily around 0300 hrs. this morning soaking almost a pad per hour. Condition worsened this afternoon where she felt lightheaded dizzy and was quite pallid when her mother visualized her on FaceTime. Mother went picked her up after she got off work and brought her to the ED. Patient did experiencing a large volume blood loss per vagina according to the mother passage of $0.50 piece clots into the toilet and then when she came out she suffered a syncopal event but was caught and did not hit the floor. She was brought into the ED immediately unresponsive initially but recovered as she was being transferred to the [facility]. She was diaphoretic and pallid in color. Complaining of diffuse lower abdominal cramping pain. Review of the chart notes from last week indicated that she did have an ultrasound done at the clinic which was reassuring in terms of no evidence of ectopic was noted. Plan IV D5 normal saline at open. She will be given Dilaudid 0.5 mg IV for pain relief with Reglan 7.5 mg and Ativan 0.5 mg for relief of anxiety. A Doppler ultrasound transvaginal will be ordered. Routine labs ordered including type and screen. (Jony Rothman) - Re-Assessments/Exams Free Text/Narrative Re-Assessment/Exam: 06/26/21 18:45: White count today is elevated at 12.49. The auto differential reveals 59% neutrophils. Hemoglobin is 10.2 and it was 11.54 days ago. Hematocrit is 32.6 platelet count 425,000 slightly elevated compared to 381 4 days ago. Coags are normal with a PT of 10.1 and INR of less than 0.93. PTT is 21.4. Sodium is 139 with potassium of 3.8. Chloride 105 with a bicarb of 20. Anion gap is 17.8. BUN is 11 with a creatinine of 0.7 and a GFR greater than 60. Glucose is 107. Calcium was slightly low at 8.3. Bilirubin 0.2 with an AST of 24 and an ALT of 50. Alkaline phosphatase is 97. Total protein is 6.3 albumin fraction 3.4 quantitative hCG is markedly reduced compared to the one obtained on June 22. On June 22 it was 9836 and today it is 4648 indicating demise. 06/26/21 19:37 has vaginal Doppler ultrasound has been completed. It reveals a small gestational sac. This is within the lower uterine segment raise the possibility of impending miscarriage. This gestational sac contains a small amount of embryonic material. Small amount of simple fluid is seen within the cul-de-sac. Right and left ovaries appear to be within normal limits. 06/26/21 20:05 I have spoken with Dr. Valdez on-call CIVIL RIGHTS REPRESENTATIVE and he agrees that she is an incomplete miscarriage. He advises misoprostol 400 mcg now and repeat in 3 hours since the patient is quite apprehensive about having any surgical procedures such as a D&C. I will leave as needed orders for Dilaudid 0.5 mg every 2 hours as needed and Zofran 4 mg IV every 4 hours as needed. If she expels the rest of the products of conception and bleeding is minimal she can be discharged home to follow-up in clinic in 10 days time. (Jony Rothman) Departure - Departure Time of Disposition: 00:08 <Naga Moncada - Last Filed: 06/27/21 00:08> - Departure Condition: Fair - Discharge Information *PRESCRIPTION DRUG MONITORING PROGRAM REVIEWED*: Not Applicable *COPY OF PRESCRIPTION DRUG MONITORING REPORT IN PATIENT NAMRATA: Not Applicable <Jony Rothman - Last Filed: 06/29/21 07:14> - Departure Disposition: Home, Self-Care 01 Clinical Impression: Spontaneous miscarriage - Discharge Information Instructions: Miscarriage, [id number] Referrals: Jaimie Thao RN [facility]OLOG[facility] [Primary Care Provider] - Forms: ED Department Discharge, ED Return to Work/School Form Additional Instructions: Evaluation in the emergency room today in regards to heavy vaginal bleeding since around 0300 hrs. this morning associate with increasing lower abdominal cramping pain. Lab work reveals that the hormone of called beta-hCG is now only 4648 compared to 9836 on June 22 when you were in the ED. This indicates that the fetus is no longer growing and indicates failure of the . Transvaginal ultrasound completed reveals an empty gestational sac lying just in the lower portion of the uterus at the opening of the cervix with no evidence of a fetus present. We call this an incomplete miscarriage. Decision made to give you misoprostol tablets 400 mcg by mouth now and repeat in 3 hours time to allow full expulsion of the products of conception and stop the bleeding per vagina. Case was discussed with Dr. Valdez on-call CIVIL RIGHTS REPRESENTATIVE. Presuming this works well you will be discharged home tonight. Suggest follow- up with Dr. Valdez in clinic or Dr. Lonnie Kaplan in clinic in 10 to 14 days time for repeat hormone of to make sure it has returned to 0. Suggest continuing your vitamins for at least 6 to 8 weeks after the miscarriage to replenish your iron reserves and your red blood cell count.
--- NOTE | 2021-06-26 19:13 | US ---
First trimester obstetrical ultrasound: Multiple real-time images were obtained transvaginally. Comparison: No prior obstetrical imaging is available. Small gestational sac is seen. This is within the lower uterine segment and raises the possibility of impending miscarriage. This gestational sac contains a small amount of embryonic material. Small amount of simple fluid is seen within the cul-de-sac. Right and left ovaries appear within normal limits. Impression: 1. Low lying gestational sac containing embryonic material. No heart activity is seen. Findings are suspicious for impending miscarriage. 2. Other portions of the study appear unremarkable. Diagnostic code #3
[2021-06-26] MEDS ORDERED: Dextrose 5%-Lactated Ringers 1,000 ML IV SCH (19:45)
[2021-06-26] MEDS ORDERED: Misoprostol 100 MCG Tab PO ONE (20:00)
[2021-06-26] MEDS ORDERED: Ondansetron 4 MG/2 ML SDV IVPUSH ONE (20:01)
[2021-06-26] MEDS ORDERED: Misoprostol 200 MCG Tab ONE (20:15)
[2021-06-26] MEDS ORDERED: Misoprostol 200 MCG Tab PO ONE ×3 (20:16→23:44)
[2021-06-26] MEDS: HYDROmorphone 0.5 MG/0.5 ML Syringe IVPUSH PRN ×2 (21:24→23:59)
== END 2021-06-27 00:17 | disposition home or self-care (01) ==
LOC: JD.ED 16:24
DX: O03.9 Complete or unspecified spontaneous abortion without complication (principal); J45.909 Unspecified asthma, uncomplicated; Z91.048 Other nonmedicinal substance allergy status
CPT/HCPCS: 36415; 76817; 80053; 84702; 85025; 85610; 85730; 86850; 86900; 86901; 96374; 96375; 96376; 99284; A9270; J1170; J2060; J2765; J7030; J7121

== ENCOUNTER 2021-07-02 13:22 | Observation (INO) | payer MEDICAID ==
[2021-07-02] MEDS ORDERED: Misoprostol 200 MCG Tab PO ONE ×2 (13:35→17:00)
[2021-07-02] MEDS ORDERED: Sodium Chloride 0.9% 250 ML ONE (13:49)
[2021-07-02] MEDS ORDERED: Ketorolac 10 MG Tab PO ONE (15:59)
[2021-07-02] MEDS: Ketorolac 30 MG/ML SDV IVPUSH PRN (22:09)
[2021-07-03] MEDS: Ketorolac 30 MG/ML SDV IVPUSH PRN (08:49)
--- NOTE | 2021-07-03 08:50 | US ---
Pelvic ultrasound: Multiple real-time images were obtained transvaginally. Comparison: No prior pelvic ultrasound is available. Uterus is anteverted. Endometrial thickness is 4 mm. Endometrium appears normal by ultrasound exam. No free fluid is seen. No adnexal abnormalities are seen. Right and left ovaries appear within normal limits. Measurements: Right ovary: 3.5 x 2.1 x 1.3 cm Left ovary: 2.8 x 2.6 x 1.3 cm Uterus: Length is 7.2 cm, AP height 3.7 cm, transverse width 3.7 cm Impression: 1. No abnormality is seen on pelvic ultrasound study. 2. No endometrial abnormalities or adnexal abnormalities are seen. Diagnostic code #1
--- NOTE | 2021-07-03 11:16 | PCM.DCSUM1 ---
Discharge Summary - Hospital Course Free Text/Narrative:: Linda is a 26-year-old 1 now para 0-0-1-0 female who was evaluated in the emergency room approximately 06/26/2021 for bleeding in early . She is noted to have what appeared to be an incomplete spontaneous at that time. Serum quantitative hCG was approximately 4600 mg/mL at that time. Patient was given Cytotec and sent home. She questionably passed some tissue and clots but continued to bleed and cramp. She was seen in clinic on 07/02/2021 for continued bleeding, clot passage, cramping. At that time her hemoglobin was 7.0. She is very symptomatic with this anemia to the point of seeing black spots, feeling like she is going to pass out on occasion and having to stop work because of inability to function. Transvaginal ultrasound in clinic showed what appeared to be some tissue remaining within the cervix. Endometrial cavity appeared clear. Bilateral ovaries were within normal limits. The decision was made to put the patient in the hospital on observation status and proceed with type, cross and transfuse 3 units of packed red blood cells and reevaluate the situation after Cytotec x2 doses was given.With a 3 units of packed red blood cells patient is hemoglobin increased to 9.6. She again was feeling very good, had energy. Symptomatology preceding the transfusion was totally eliminated. She continued to have minimal amount of bleeding but no further cramping after the 2 doses of Cytotec were given. She was given Toradol for pain relief IV. Hemoglobin increased to 9.6. She again is feeling very good, has good energy. Symptomatology preceding the transfusion was totally eliminated. She continued to have minimal amount of bleeding but no further cramping after the 2 doses of Cytotec ultrasound done on 07/03/2021 shows what appears to be a normal- appearing uterus which is anterior. The endometrial lining is 4 mm. There is no evidence of retained products of conception within the endometrial cavity or the endocervical cavity. Measurements: Uterus 7.2 x 3.7 x 3.1 cm Right ovary 3.5 x 2.1 x 1.3 cm Left ovary 2.8 x 2.6 x 1.3 cm. Impression was essentially normal pelvic ultrasound. We will plan to send the patient home. We will follow up with weekly beta hCGs and a follow-up visit 2 to 3 weeks from now. Patient is interested in proceeding with another if possible. Patient is Rh is positive therefore Rh and evaluation was not necessary. Diagnosis: Stroke: No - Discharge Data Discharge Date: 07/03/21 Discharge Disposition: Home, Self-Care 01 Condition: Good - Referral to Home Health Primary Care Physician: Jean Paul Valdez MD - Discharge Diagnosis/Problem(s) (1) Incomplete miscarriage SNOMED Code(s): 101720194 ICD Code: O03.4 - INCOMPLETE SPONTANEOUS WITHOUT COMPLICATION Status: Acute Current Visit: Yes (2) Blood loss anemia SNOMED Code(s): 300801626 ICD Code: D50.0 - IRON DEFICIENCY ANEMIA SECONDARY TO BLOOD LOSS (CHRONIC) Status: Acute Current Visit: Yes - Patient Instructions Diet: Usual Diet as Tolerated, Regular Diet as Tolerated Activity: As Tolerated (No intercourse or tampons until bleeding resolves) Driving: Do Not Drive (X2 days.) Showering/Bathing: May Shower (May take a bath) Notify Provider of: Fever, Increased Pain, Swelling and Redness, Drainage - Discharge Plan Home Medications: Home Meds #103/Iron Fumarate/Fa [ ] 1 tab PO DAILY 06/22/21 [History] Patient Handouts: Electronic Cigarette Information, Steps to Quit Smoking Referrals: Jean Paul Valdez MD [Primary Care Provider] - (Return to clinicDr. Valdez2-3 weeks.) - Discharge Summary/Plan Comment DC Time >30 min.: No Total # of Minutes for Discharge Time: 10 Discharge Summary/Plan Comment: Discharge instructions: 1. Discharge home 2. Diet, activity and follow-up discussed with patient. 3. Precautions given concern increased pain, bleeding, temperature, signs/symptoms of DVT/PE. 4. Medications per home medication was printed, discussed with and given to the patient. 5. Return to clinic-Dr. Valdez-[facility] in 2 weeks. Diagnosis: Miscarriage Condition: Good - Patient Data Vitals - Most Recent: Last Vital Signs Temp 36.6 C 07/03/21 08:00 Pulse 68 07/03/21 04:00 Resp 16 07/03/21 08:00 BP 104/60 07/03/21 08:00 Pulse Ox 99 07/03/21 08:00 Weight - Most Recent: 77.201 kg I&O - Last 24 hours: Intake & Output 07/02/21 07/03/21 07/03/21 22:59 06:59 14:59 Intake Total 1624 700 Output Total 500 600 900 Balance 1124 100 -900 Lab Results - Last 24 hrs: Laboratory Results - last 24 hr 07/02/21 07/02/21 07/02/21 Range/Units 11:45 16:00 20:45 WBC 7.03 (3.98-10.04) K/mm3 RBC 3.61 L (3.98-5.22) M/mm3 Hgb 9.6 L D (11.2-15.7) gm/dl Hct 30.3 L (34.1-44.9) % MCV 83.9 (79.4-94.8) fl MCH 26.6 (25.6-32.2) pg MCHC 31.7 L (32.2-35.5) g/dl RDW Std Deviation 44.4 (36.4-46.3) fL Plt Count 338 (182-369) K/mm3 MPV 8.7 L (9.4-12.3) fl Neut % (Auto) 48.1 (34.0-71.1) % Lymph % (Auto) 38.4 (19.3-51.7) % [place] % (Auto) 7.3 (4.7-12.5) % Eos % (Auto) 5.5 (0.7-5.8) Baso % (Auto) 0.6 (0.1-1.2) % Neut # (Auto) 3.38 (1.56-6.13) K/mm3 Lymph # (Auto) 2.70 (1.18-3.74) K/mm3 [place] # (Auto) 0.51 H (0.24-0.36) K/mm3 Eos # (Auto) 0.39 H (0.04-0.36) K/mm3 Baso # (Auto) 0.04 (0.01-0.08) K/mm3 SARS-CoV-2 RNA ([place]) Negative (NEGATIVE) Blood Type O POSITIVE Gel Antibody Screen Negative Crossmatch See Detail Med Orders - Current: Current Medications Ketorolac Tromethamine (Ketorolac 30 Mg/Ml Sdv) 30 mg IVPUSH Q6H PRN PRN Reason: Pain Stop: 07/07/21 22:01 Last Admin: 07/03/21 08:49 Dose: 30 mg Documented by: Discontinued Medications Sodium Chloride (Normal Saline) Confirm Administered Dose 250 mls @ as directed .ROUTE .STK-MED ONE Stop: 07/02/21 13:50 Last Admin: 07/02/21 13:58 Dose: 25 mls/hr Documented by: Ketorolac Tromethamine (Ketorolac 10 Mg Tab) 30 mg PO ONETIME ONE Stop: 07/02/21 16:00 Last Admin: 07/02/21 16:12 Dose: 30 mg Documented by: Misoprostol (Misoprostol 200 Mcg Tab) 400 mcg PO ONETIME ONE Stop: 07/02/21 13:36 Last Admin: 07/02/21 13:58 Dose: 400 mcg Documented by: Misoprostol (Misoprostol 200 Mcg Tab) 400 mcg PO ONETIME ONE Stop: 07/02/21 17:01 Last Admin: 07/02/21 16:59 Dose: 400 mcg Documented by:
== END 2021-07-03 11:50 | disposition home or self-care (01) ==
LOC: JD.BLOODTR 13:22 → EEVIPCON 13:22 → JD.OB 13:23 → JD.BLOODTR 13:23 → JD.OB 13:33
PROVIDERS: ADMIT Obstetrics & Gynecology; ATTEND Obstetrics & Gynecology
DX: O03.6 Delayed or excessive hemorrhage following complete or unspecified spontaneous abortion (principal); D62 Acute posthemorrhagic anemia; Z91.048 Other nonmedicinal substance allergy status; Z98.890 Other specified postprocedural states; Z20.822 Contact with and (suspected) exposure to COVID-19
CPT/HCPCS: 36415; 36430; 76830; 85025; 86850; 86900; 86901; 86922; 87635; 96374; 96376; A9270; G0378; J1885; J7050; P9016; U0002

== ENCOUNTER 2022-03-12 07:58 | Emergency (ER) | payer MEDICAID ==
[2022-03-12] MEDS ORDERED: Ondansetron 4 MG/2 ML SDV IVPUSH ONE (08:25)
[2022-03-12] MEDS ORDERED: Lactated Ringers 1,000 ML IV ONE (08:25)
[2022-03-12] MEDS ORDERED: Alum Hydrox/Mag Hydrox/Simeth 30 ML, Lidocaine 2% 15 ML PO ONE ×2 (08:45)
[2022-03-12] MEDS ORDERED: Sucralfate Suspension 1 GM/10 ML Cup PO ONE (10:45)
== END 2022-03-12 11:55 | disposition home or self-care (01) ==
LOC: JD.ED 07:58
DX: K29.70 Gastritis, unspecified, without bleeding (principal); K21.9 Gastro-esophageal reflux disease without esophagitis; Z91.048 Other nonmedicinal substance allergy status; Z79.899 Other long term (current) drug therapy
CPT/HCPCS: 36415; 80053; 81003; 83690; 84484; 84703; 85025; 93005; 96361; 96374; 99284; A9270; J2405; J7120

== ENCOUNTER 2022-04-22 07:15 | Emergency (ER) | payer MEDICAID ==
[2022-05-18 13:03] LABS: ESTIMATED GFR 127 mL/min (>60)
== END 2022-04-22 11:45 | disposition home or self-care (01) ==
LOC: JD.ED 07:15
DX: O26.859 Spotting complicating pregnancy, unspecified trimester (principal); Z3A.00 Weeks of gestation of pregnancy not specified
CPT/HCPCS: 36415; 76817; 76817-26; 80053; 81001; 84702; 85007; 85027; 85610; 85730; 99284

== ENCOUNTER 2022-12-08 10:17 | Emergency (ER) | payer MEDICAID ==
[2022-12-08] MEDS ORDERED: Albuterol/Ipratropium 3.0-0.5 MG/3 ML Neb Soln NEB ONE (11:10)
[2022-12-08 11:43] LABS: BASOPHILS ABSOLUTE AUTO 0.04 K/mm3 (0.01-0.08); BASOPHILS PERCENT AUTO 0.4 % (0.1-1.2); EOSINOPHILS ABSOLUTE AUTO 0.57 K/mm3 (0.04-0.36); EOSINOPHILS PERCENT AUTO 5.7 (0.7-5.8); HEMATOCRIT 42.2 % (34.1-44.9); HEMOGLOBIN 14.2 gm/dl (11.2-15.7); IMMATURE GRAN ABSOLUTE AUTO 0.02 K/mm3 (0.00-0.10); IMMATURE GRAN PERCENT AUTO 0.2 % (<=1.0); LYMPHOCYTES ABSOLUTE AUTO 1.65 K/mm3 (1.18-3.74); LYMPHOCYTES PERCENT AUTO 16.6 % (19.3-51.7); MEAN CORPUSCULAR HEMOGLOBIN 28.9 pg (25.6-32.2); MEAN CORPUSCULAR HGB CONC 33.6 g/dl (32.2-35.5); MEAN CORPUSCULAR VOLUME 85.8 fl (79.4-94.8); MONOCYTES ABSOLUTE AUTO 0.44 K/mm3 (0.24-0.36); MONOCYTES PERCENT AUTO 4.4 % (4.7-12.5); NEUTROPHILS ABSOLUTE AUTO 7.24 K/mm3 (1.56-6.13); NEUTROPHILS PERCENT AUTO 72.7 % (34.0-71.1); PLATELET COUNT,PLT 292 K/mm3 (182-369); RED BLOOD CELL COUNT 4.92 M/mm3 (3.98-5.22); WHITE BLOOD CELL COUNT,WBC 9.96 K/mm3 (3.98-10.04)
[2022-12-08 12:05] LABS: A/G RATIO 0.8 (1-2); ALBUMIN 2.7 g/dl (3.4-5.0); ANION GAP 14.5 (5-15); BILIRUBIN TOTAL 0.2 mg/dL (0.2-1.0); CALCIUM 8.2 mg/dL (8.5-10.1); CREATININE 0.6 mg/dL (0.55-1.02); EST CRCL DRUG DOSING (CG) 142.07 mL/min; POTASSIUM,K 3.5 mEq/L (3.5-5.1); PROTEIN TOTAL,TP 6.3 g/dl (6.4-8.2)
[2022-12-08] MEDS ORDERED: Albuterol 6.7 GM Inhaler INH ONE (14:03)
== END 2022-12-08 14:40 | disposition home or self-care (01) ==
LOC: JD.ED 10:17
DX: J18.9 Pneumonia, unspecified organism (principal); J45.40 Moderate persistent asthma, uncomplicated; Z3A.10 10 weeks gestation of pregnancy; E03.9 Hypothyroidism, unspecified; F17.210 Nicotine dependence, cigarettes, uncomplicated; Z91.048 Other nonmedicinal substance allergy status; Z91.038 Other insect allergy status; Z79.899 Other long term (current) drug therapy; Z86.16 Personal history of COVID-19
CPT/HCPCS: 36415; 80053; 85025; 93971; 94640; 99284; A9270; 99283; J7620-GY

== ENCOUNTER 2023-04-23 07:33 | Emergency (ER) | payer MEDICAID ==
[2023-04-23] MEDS ORDERED: Sodium Chloride 0.9% 10 ML Syringe FLUSH PRN (07:54)
[2023-04-23] MEDS ORDERED: Ondansetron 4 MG/2 ML SDV IVPUSH ONE (07:54)
[2023-04-23] MEDS ORDERED: methylPREDNISolone Sodium Succinate 125 MG/2 ML SDV IVPUSH ONE (07:55)
[2023-04-23] MEDS ORDERED: Albuterol/Ipratropium 3.0-0.5 MG/3 ML Neb Soln NEB ONE ×2 (07:56→09:43)
[2023-04-23] MEDS ORDERED: Sodium Chloride 0.9% 1,000 ML IV SCH (08:00)
[2023-04-23 08:44] LABS: BASOPHILS ABSOLUTE AUTO 0.1 K/mm3 (0.0-0.2); BASOPHILS PERCENT AUTO 0.6 % (0.0-1.0); EOSINOPHILS ABSOLUTE AUTO 0.5 K/mm3 (0.0-0.4); EOSINOPHILS PERCENT AUTO 5.5 % (0.0-6.0); HEMOGLOBIN 13.8 gm/dl (12.0-16.0); IMMATURE GRAN ABSOLUTE AUTO 0.14 K/mm3 (0.00-0.05); IMMATURE GRAN PERCENT AUTO 1.5 % (0.0-0.4); MEAN CORPUSCULAR HEMOGLOBIN 30.5 pg (28.0-32.0); MEAN CORPUSCULAR HGB CONC 34.5 g/dl (32.0-36.0); MEAN CORPUSCULAR VOLUME 88.5 fl (83.0-99.0); MONOCYTES ABSOLUTE AUTO 0.5 K/mm3 (0.0-0.8); MONOCYTES PERCENT AUTO 5.2 % (0.0-8.0); NEUTROPHILS ABSOLUTE AUTO 6.4 K/mm3 (1.8-7.7); NEUTROPHILS PERCENT AUTO 66.2 % (41.0-71.0); PLATELET COUNT,PLT 228 K/mm3 (150-400); RED BLOOD CELL COUNT 4.52 M/mm3 (4.10-5.30)
[2023-04-23 09:05] LABS: A/G RATIO 0.7 (1-2); ALBUMIN 2.4 g/dl (3.4-5.0); ANION GAP 15.2 (5-15); BILIRUBIN TOTAL 0.3 mg/dL (0.2-1.0); CALCIUM 8.6 mg/dL (8.5-10.1); CREATININE 0.5 mg/dL (0.55-1.02); EST CRCL DRUG DOSING (CG) 164.35 mL/min; POTASSIUM,K 3.2 mEq/L (3.5-5.1); PROTEIN TOTAL,TP 6.1 g/dl (6.4-8.2)
[2023-04-23 09:54] LABS: CORONAVIRUS COVID-19 NAA NEGATIVE (NEGATIVE); INFLUENZA A NAA NEGATIVE (NEGATIVE); RESPIRATORY SYNCYTIAL VIR NAA NEGATIVE (NEGATIVE)
[2023-04-23] MEDS ORDERED: Albuterol 0.083% 2.5 MG/3 ML Neb Soln NEB ONE (10:29)
[2023-04-23] MEDS ORDERED: Albuterol 6.7 GM Inhaler INH ONE (12:15)
== END 2023-04-23 13:00 | disposition home or self-care (01) ==
LOC: JD.ED 07:33
DX: O99.512 Diseases of the respiratory system complicating pregnancy, second trimester (principal); J45.901 Unspecified asthma with (acute) exacerbation; Z3A.29 29 weeks gestation of pregnancy; Z86.16 Personal history of COVID-19; Z20.822 Contact with and (suspected) exposure to COVID-19; Z79.899 Other long term (current) drug therapy; E03.9 Hypothyroidism, unspecified; Z91.030 Bee allergy status; Z91.048 Other nonmedicinal substance allergy status
CPT/HCPCS: 0241U; 36415; 71045; 80053; 85025; 94640; 96361; 96374; 96375; 99284; A9270; J2405; J2930; J3490; J7030; J7620-GY

== ENCOUNTER 2023-06-27 06:52 | Inpatient (IN) | payer MEDICAID ==
[~2023-06-27 06:52] MED LIST: Lidocaine 1% 10 ML MDV ONE
[2023-06-27] MEDS ORDERED: fentaNYL 100 MCG/2 ML SDV IVPUSH PRN (07:00)
[2023-06-27] MEDS ORDERED: Calcium Carbonate 500 MG Tab.Chew PO PRN (07:00)
[2023-06-27] MEDS ORDERED: Sodium Chloride 0.9% 10 ML Syringe FLUSH PRN ×2 (07:00→17:52)
[2023-06-27] MEDS ORDERED: Lidocaine 1% 50 ML MDV INJECT PRN (07:00)
[2023-06-27] MEDS ORDERED: Ondansetron 4 MG/2 ML SDV IVPUSH PRN (07:00)
[2023-06-27] MEDS ORDERED: Oxytocin/Lactated Ringers 30 UNIT/500 ML BAG IV SCH (07:15)
[2023-06-27] MEDS ORDERED: Albuterol 6.7 GM Inhaler INH PRN (07:33)
[2023-06-27] MEDS ORDERED: Levothyroxine 25 MCG Tab PO SCH (07:49)
[2023-06-27] MEDS: Lactated Ringers 1,000 ML IV SCH ×2 (07:51→11:17)
[2023-06-27 07:52] LABS: BASOPHILS ABSOLUTE AUTO 0.1 K/mm3 (0.0-0.2); BASOPHILS PERCENT AUTO 0.4 % (0.0-1.0); EOSINOPHILS ABSOLUTE AUTO 0.1 K/mm3 (0.0-0.4); EOSINOPHILS PERCENT AUTO 0.7 % (0.0-6.0); HEMATOCRIT 43.6 % (37.0-47.0); HEMOGLOBIN 14.9 gm/dl (12.0-16.0); IMMATURE GRAN ABSOLUTE AUTO 0.13 K/mm3 (0.00-0.05); IMMATURE GRAN PERCENT AUTO 1.1 % (0.0-0.4); LYMPHOCYTES ABSOLUTE AUTO 3.5 K/mm3 (1.0-4.8); LYMPHOCYTES PERCENT AUTO 29.1 % (24.0-44.0); MEAN CORPUSCULAR HEMOGLOBIN 30.2 pg (28.0-32.0); MEAN CORPUSCULAR HGB CONC 34.2 g/dl (32.0-36.0); MEAN CORPUSCULAR VOLUME 88.4 fl (83.0-99.0); MEAN PLATELET VOLUME 9.1 fl (9.4-12.3); MONOCYTES ABSOLUTE AUTO 0.6 K/mm3 (0.0-0.8); MONOCYTES PERCENT AUTO 5.1 % (0.0-8.0); NEUTROPHILS ABSOLUTE AUTO 7.7 K/mm3 (1.8-7.7); NEUTROPHILS PERCENT AUTO 63.6 % (41.0-71.0); PLATELET COUNT,PLT 256 K/mm3 (150-400); RED BLOOD CELL COUNT 4.93 M/mm3 (4.10-5.30); WHITE BLOOD CELL COUNT,WBC 12.06 K/mm3 (3.9-11.3)
[2023-06-27 08:25] LABS: A/G RATIO 0.6 (1-2); ALBUMIN 2.4 g/dl (3.4-5.0); ANION GAP 15.6 (5-15); BILIRUBIN TOTAL 0.2 mg/dL (0.2-1.0); BUN/CREATININE RATIO 11.7 (14-18); CALCIUM 8.4 mg/dL (8.5-10.1); CREATININE 0.6 mg/dL (0.55-1.02); EST CRCL DRUG DOSING (CG) 142.07 mL/min; POTASSIUM,K 3.6 mEq/L (3.5-5.1); PROTEIN TOTAL,TP 6.2 g/dl (6.4-8.2)
[2023-06-27] MEDS: predniSONE 10 MG Tab PO SCH (08:25)
[2023-06-27] MEDS ORDERED: Sodium Chloride 0.9% 10 ML Syringe FLUSH SCH (09:00)
[2023-06-27] MEDS ORDERED: diphenhydrAMINE 50 MG/ML SDV IVPUSH PRN (09:45)
[2023-06-27] MEDS ORDERED: ePHEDrine 50 MG/ML SDV IVPUSH PRN (09:45)
[2023-06-27] MEDS ORDERED: fentaNYL 100 MCG/2 ML SDV EPIDUR PRN (09:45)
[2023-06-27] MEDS: Bupivacaine/fentaNYL/NS 100 ML Bag EPIDUR PRN ×2 (10:07→16:14)
[2023-06-27] MEDS ORDERED: Famotidine 20 MG Tab PO PRN (17:52)
[2023-06-27] MEDS ORDERED: Methylergonovine 0.2 MG/1 ML Amp IM PRN (17:52)
[2023-06-27] MEDS ORDERED: Witch Hazel Medicated Pads 40/Jar TOP PRN (17:52)
[2023-06-27] MEDS ORDERED: Docusate Sodium 100 MG Cap PO PRN (17:52)
[2023-06-27] MEDS ORDERED: Benzocaine/Menthol 20%-0.5% Spray 78 GM Cannister TOP PRN (17:52)
[2023-06-27] MEDS ORDERED: Bisacodyl 10 MG Supp RECTAL PRN (17:52)
[2023-06-27] MEDS: Ibuprofen 600 MG Tab PO PRN (22:52)
[2023-06-28] MEDS: Acetaminophen 325 MG Tab PO PRN ×2 (04:16→11:48)
[2023-06-28] MEDS: Ibuprofen 600 MG Tab PO PRN ×2 (06:55→16:16)
[2023-06-28] MEDS: predniSONE 10 MG Tab PO SCH (11:46)
== END 2023-06-28 18:12 | disposition home or self-care (01) | DRG 807 ==
LOC: JD.OB 06:52 → OBSVTOIN 17:49 → JD.OB 17:49
PROVIDERS: ADMIT Obstetrics & Gynecology; ATTEND Obstetrics & Gynecology
PROC: 10E0XZZ Delivery of Products of Conception, External Approach (ICD-10-PCS; principal; 2023-06-27)
PROC: 3E033VJ Introduction of Other Hormone into Peripheral Vein, Percutaneous Approach (ICD-10-PCS; 2023-06-27)
PROC: 10907ZC Drainage of Amniotic Fluid, Therapeutic from Products of Conception, Via Natural or Artificial Opening (ICD-10-PCS; 2023-06-27)
PROC: 3E033VJ Introduction of Other Hormone into Peripheral Vein, Percutaneous Approach (ICD-10-PCS; 2023-06-27)
PROC: 3E0R329 Introduction of Other Anti-infective into Spinal Canal, Percutaneous Approach (ICD-10-PCS; 2023-06-27)
PROC: 10H07YZ Insertion of Other Device into Products of Conception, Via Natural or Artificial Opening (ICD-10-PCS; 2023-06-27)
DX: O24.420 Gestational diabetes mellitus in childbirth, diet controlled (principal); Z3A.39 39 weeks gestation of pregnancy; Z37.0 Single live birth; O99.52 Diseases of the respiratory system complicating childbirth; J45.909 Unspecified asthma, uncomplicated; O99.284 Endocrine, nutritional and metabolic diseases complicating childbirth; E03.9 Hypothyroidism, unspecified; O99.892 Other specified diseases and conditions complicating childbirth; M54.9 Dorsalgia, unspecified; O70.1 Second degree perineal laceration during delivery
CPT/HCPCS: 36415; 51702; 59025; 59409; 80053; 82947; 85025; 86592; 86850; 86900; 86901; A9270-GY; J2405; J3010; J3490; J7120; J7512; J7999